=== PATIENT | female | born 1930 | race Caucasian/White ===

== ENCOUNTER 2018-02-16 00:07 | Inpatient (IN) ==
[2018-02-16] MEDS ORDERED: DILTIAZEM 25 MG/5 ML VIAL IV ONE (00:22)
[2018-02-16] MEDS ORDERED: DILTIAZEM 125 MG in DEXTROSE 5% IN WATER 100 ML IV SCH (00:30)
[2018-02-16] MEDS ORDERED: ACETAMINOPHEN 325 MG TABLET PO ONE (00:56)
[2018-02-16 01:19] LABS: Basophils # (Auto) 0 K/mcL (0.0-0.3); Basophils % (Auto) 0.1 % (0.0-2.0); Eosinophils # (Auto) 0.1 K/mcL (0.0-0.7); Eosinophils % (Auto) 1.1 % (0.0-7.0); Granulocytes % (Auto) 79.8 % (38.0-78.0); Lymphocytes # (Auto) 0.9 K/mcL (1.5-4.8); Lymphocytes % (Auto) 8.7 % (15.5-49.0); Mean Cell Volume 88.4 fL (80.0-100.0); Mean Corpuscular HGB Conc 33.2 g/dL (31.0-36.0); Mean Corpuscular Hemoglobin 29.4 pg (26.0-34.0); Monocytes # (Auto) 1.1 K/mcL (0.1-0.9); Monocytes % (Auto) 10.3 % (1.0-12.0); Platelet Count 170 K/mcL (140-440); RBC 4.38 M/mcL (4.00-5.20); Red Cell Distribution Width 14.7 % (11.5-14.5)
[2018-02-16] MEDS ORDERED: 0.9 % SODIUM CHLORIDE 2,000 ML IV ONE (01:27)
[2018-02-16 01:39] LABS: ALT/SGPT 32 U/l (0-40); Albumin 3.5 gm/dL (3.2-5.2); Albumin/Globulin Ratio 1.2 (1.0-2.3); Alkaline Phosphatase 75 U/L (39-117); Blood Urea Nitrogen 24 mg/dl (8-23)
[2018-02-16 02:00] LABS: Appearance,Urine CLEAR; Bacteria,Urine 0 /hpf (0); Bilirubin,Urine NEG (NEG); Color,Urine YELLOW; Glucose,Urine (UA) NEGATIVE (NEG); Leukocyte Esterase,Urine NEG /uL (NEG); Mucus,Urine MOD /hpf (0); Protein,Urine 30 mg/dL (NEG); Specific Gravity,Urine 1.024 (1.000-1.035); Urine Blood 0.03 mg/dL (<0.03); Urine Hyaline Cast 1 /lpf (0-2); Urine RBC 10 /hpf (0-1); Urine Squamous Epithelial Cell 0 /hpf (0-4); Urine WBC 1 /hpf (0-4); Urobilinogen,Urine NEG (NEG)
--- NOTE | 2018-02-16 06:45 | XRay Report ---
CLINICAL INFORMATION: afib, fever COMPARISON: None. FINDINGS: The heart is moderately enlarged. Mediastinum and pulmonary vasculature are unremarkable. Moderate stranding airspace disease in the left midlung is more likely fibrosis rather than a developing infiltrate. Nonunified displaced old fracture of the distal left clavicle noted. Both humeral heads are subluxed superiorly and impinge the acromium compatible with chronic rotator cuff tear/impingement IMPRESSION: Moderate strand-like airspace disease in the left midlung more likely fibrosis and infiltrate. If aspiration or pneumonia is suspected clinically, suggest two view upright chest x-ray within 24 hours Interpreted and Authenticated by: Jerardo Pulliam 02/16/18
--- NOTE | 2018-02-16 06:46 | Emergency Department Note ---
General Adult HPI - General Chief complaint: Fever Stated complaint: fever Time Seen by Provider: 02/16/18 00:24 Mode of arrival: wheelchair - History of Present Illness HPI Narrative: This patient received a flu shot and pneumonia shot on Friday and has been coughing since and has had a fever. She also was in atrial fibrillation RVR. No chest pain. - Related Data Home Medications Medication Instructions Recorded Confirmed Aspirin [Lo-Dose Aspirin EC] 81 mg PO DAILY 02/16/18 02/16/18 Cyanocobalamin (Vitamin B-12) 2,500 mcg PO DAILY 02/16/18 02/16/18 [Vitamin B12] Divalproex Sodium [Depakote] 250 mg PO DAILY 02/16/18 02/16/18 Losartan [Cozaar] 50 mg PO DAILY 02/16/18 02/16/18 Multivitamin [One Daily] 1 each PO DAILY 02/16/18 02/16/18 Allergies Allergy/AdvReac Type Severity Reaction Status Date / Time No Known Drug Allergies Allergy Verified 02/16/18 02:13 Review of Systems All systems ED: reviewed and negative except as stated. Past Medical History - Past Medical History Medical history: Reports: dementia, hypertension Surgical history ED: Reports: orthopedic, other (Clavicle fracture) - Social History smoking status: Never smoker Physical Exam Limitations: no limitations General appearance: alert Head: atraumatic Eye: Present: normal appearance ENT: normal exam Neck: Present: normal inspection Chest: Present: normal inspection Respiratory: Present: other (Scattered rhonchi) Cardiovascular: Present: regular rate, normal rhythm, normal heart sounds Abdominal: Present: soft. Absent: distention, tenderness Neurological: Present: alert Psychiatric: Present: normal affect Skin: Present: warm, dry Course Vital Signs Temperature 103 F H 02/16/18 00:09 Pulse Rate 144 H 02/16/18 00:09 Respiratory Rate 35 H 02/16/18 00:09 Blood Pressure 132/95 02/16/18 00:09 Pulse Oximetry (%) 88 L 02/16/18 00:09 Temperature 99.7 F H 02/16/18 04:11 Pulse Rate 70 02/16/18 07:16 Respiratory Rate 31 H 02/16/18 07:16 Blood Pressure 132/90 02/16/18 07:16 Pulse Oximetry (%) 100 02/16/18 07:16 Medical Decision Making - MDM Narrative Medical decision making narrative: Chest x-ray may show a linear infiltrate in the left midlung zone. Troponin was 0.05 and 0.04 on repeat. Heart rate was controlled with diltiazem. Lab work is reassuring for not being septic. We did blood cultures and gave doxycycline 100 mg IV. She will be admitted to the hospital. - Lab Data Lab results reviewed: Yes I reviewed the patient's lab results. Result diagrams: 02/16/18 00:37 02/16/18 00:37 Lab Results 02/16/18 02/16/18 02/16/18 Range/Units 00:37 00:37 00:37 WBC 10.3 (4.5-11.0) K/mcL RBC 4.38 (4.00-5.20) M/mcL Hgb 12.9 (12.0-15.0) g/dL Hct 38.7 (36.0-48.0) % MCV 88.4 (80.0-100.0) fL MCH 29.4 (26.0-34.0) pg MCHC 33.2 (31.0-36.0) g/dL RDW 14.7 H (11.5-14.5) % Plt Count 170 (140-440) K/mcL MPV 12.4 H (7.4-10.4) fL Gran % 79.8 H (38.0-78.0) % Lymph % (Auto) 8.7 L (15.5-49.0) % Coal % (Auto) 10.3 (1.0-12.0) % Eos % (Auto) 1.1 (0.0-7.0) % Baso % (Auto) 0.1 (0.0-2.0) % Gran # 8.2 H (1.8-8.0) K/mcL Lymph # (Auto) 0.9 L (1.5-4.8) K/mcL Coal # (Auto) 1.1 H (0.1-0.9) K/mcL Eos # (Auto) 0.1 (0.0-0.7) K/mcL Baso # (Auto) 0 (0.0-0.3) K/mcL VBG Lactic Acid 1.3 (0.5-2.2) mmol/L Sodium 137 (133-145) mmol/L Potassium 4.0 (3.3-5.1) mmol/L Chloride 103 (96-108) mmol/L Carbon Dioxide 23 (22-30) mmol/L Anion Gap 11.0 (8-16) BUN 24 H (8-23) mg/dl Creatinine 1.0 (0.6-1.1) mg/dl GFR Calculation 51 Glucose 156 H (70-105) mg/dL Calcium 8.3 L (8.6-10.4) mg/dl Total Bilirubin 0.9 (0.0-1.0) mg/dL AST 29 (0-37) U/l ALT 32 (0-40) U/l Alkaline Phosphatase 75 (39-117) U/L Troponin T (0-0.03) ng/ml Total Protein 6.4 (5.9-8.4) gm/dL Albumin 3.5 (3.2-5.2) gm/dL Globulin 2.9 (2.2-3.7) gm/dL Albumin/Globulin Ratio 1.2 (1.0-2.3) Urine Color Urine Appearance Urine pH (5.0-9.0) Ur Specific [place] (1.000-1.035) Urine Protein (NEG) mg/dL Urine Glucose (UA) (NEG) mg/dL Urine Ketones (NEG) mg/dL Urine Occult Blood (<0.03) mg/dL Urine Nitrate (NEG) Urine Bilirubin (NEG) mg/dL Urine Urobilinogen (NEG) mg/dL Ur Leukocyte Esterase (NEG) /uL Urine RBC (0-1) /hpf Urine WBC (0-4) /hpf Ur Squamous Epith Cells (0-4) /hpf Urine Bacteria (0) /hpf Hyaline Casts (0-2) /lpf Urine Mucus (0) /hpf Ur Culture Indicated? 02/16/18 02/16/18 02/16/18 Range/Units 00:37 01:03 05:38 WBC (4.5-11.0) K/mcL RBC (4.00-5.20) M/mcL Hgb (12.0-15.0) g/dL Hct (36.0-48.0) % MCV (80.0-100.0) fL MCH (26.0-34.0) pg MCHC (31.0-36.0) g/dL RDW (11.5-14.5) % Plt Count (140-440) K/mcL MPV (7.4-10.4) fL Gran % (38.0-78.0) % Lymph % (Auto) (15.5-49.0) % Coal % (Auto) (1.0-12.0) % Eos % (Auto) (0.0-7.0) % Baso % (Auto) (0.0-2.0) % Gran # (1.8-8.0) K/mcL Lymph # (Auto) (1.5-4.8) K/mcL Coal # (Auto) (0.1-0.9) K/mcL Eos # (Auto) (0.0-0.7) K/mcL Baso # (Auto) (0.0-0.3) K/mcL VBG Lactic Acid (0.5-2.2) mmol/L Sodium (133-145) mmol/L Potassium (3.3-5.1) mmol/L Chloride (96-108) mmol/L Carbon Dioxide (22-30) mmol/L Anion Gap (8-16) BUN (8-23) mg/dl Creatinine (0.6-1.1) mg/dl GFR Calculation Glucose (70-105) mg/dL Calcium (8.6-10.4) mg/dl Total Bilirubin (0.0-1.0) mg/dL AST (0-37) U/l ALT (0-40) U/l Alkaline Phosphatase (39-117) U/L Troponin T 0.05 H* 0.04 H* (0-0.03) ng/ml Total Protein (5.9-8.4) gm/dL Albumin (3.2-5.2) gm/dL Globulin (2.2-3.7) gm/dL Albumin/Globulin Ratio (1.0-2.3) Urine Color Yellow Urine Appearance Clear Urine pH 5.0 (5.0-9.0) Ur Specific [place] 1.024 (1.000-1.035) Urine Protein 30 A (NEG) mg/dL Urine Glucose (UA) Negative (NEG) mg/dL Urine Ketones Neg (NEG) mg/dL Urine Occult Blood 0.03 A (<0.03) mg/dL Urine Nitrate Neg (NEG) Urine Bilirubin Neg (NEG) mg/dL Urine Urobilinogen Neg (NEG) mg/dL Ur Leukocyte Esterase Neg (NEG) /uL Urine RBC 10 H (0-1) /hpf Urine WBC 1 (0-4) /hpf Ur Squamous Epith Cells 0 (0-4) /hpf Urine Bacteria 0 (0) /hpf Hyaline Casts 1 (0-2) /lpf Urine Mucus Mod (0) /hpf Ur Culture Indicated? No - Radiology Data Radiology results reviewed: Yes I reviewed the patient's radiology results. Disposition Pt seen by HYDROPULPER OPERATOR/PA only: No Clinical Impression: Atrial fibrillation with rapid ventricular response Disposition: Xfer As Inpt ([facility]) Condition: Fair Time of Disposition: 07:35
[2018-02-16] MEDS ORDERED: DOXYCYCLINE 100 MG in DEXTROSE 5% IN WATER 100 ML IV ONE (06:47)
[2018-02-16] MEDS ORDERED: ONDANSETRON 4 MG/2 ML VIAL IV PRN (10:40)
[2018-02-16] MEDS: HEPARIN 5,000 UNIT/ML VIAL SQ SCH ×2 (11:38→20:06)
[2018-02-16] MEDS: 0.9 % SODIUM CHLORIDE 250 ML IV SCH (11:39)
[2018-02-16 11:44] LABS: Basophils # (Auto) 0 K/mcL (0.0-0.3); Basophils % (Auto) 0.2 % (0.0-2.0); Eosinophils # (Auto) 0 K/mcL (0.0-0.7); Eosinophils % (Auto) 0.2 % (0.0-7.0); Granulocytes % (Auto) 76.3 % (38.0-78.0); Lymphocytes # (Auto) 1.1 K/mcL (1.5-4.8); Lymphocytes % (Auto) 11.1 % (15.5-49.0); Mean Cell Volume 89.6 fL (80.0-100.0); Mean Corpuscular HGB Conc 33.3 g/dL (31.0-36.0); Mean Corpuscular Hemoglobin 29.8 pg (26.0-34.0); Monocytes # (Auto) 1.2 K/mcL (0.1-0.9); Monocytes % (Auto) 12.2 % (1.0-12.0); Platelet Count 169 K/mcL (140-440); RBC 4.47 M/mcL (4.00-5.20); Red Cell Distribution Width 15.1 % (11.5-14.5)
[2018-02-16 12:07] LABS: Estimated Average Glucose(eAG) 114 mg/dL; Hemoglobin A1C 5.6 % HGB (4.0-6.0)
[2018-02-16 12:16] LABS: ALT/SGPT 103 U/l (0-40); Albumin 3.7 gm/dL (3.2-5.2); Albumin/Globulin Ratio 1.3 (1.0-2.3); Alkaline Phosphatase 118 U/L (39-117); Blood Urea Nitrogen 19 mg/dl (8-23)
[2018-02-16] MEDS ORDERED: DILTIAZEM 125 MG in DEXTROSE 5% IN WATER 100 ML IV PRN (12:30)
[2018-02-16] MEDS: DILTIAZEM 30 MG TABLET PO SCH ×2 (13:09→17:59)
[2018-02-16] MEDS: ACETAMINOPHEN 325 MG TABLET PO PRN (13:22)
[2018-02-16] MEDS: 0.9 % SODIUM CHLORIDE 10 ML SYRINGE IV SCH ×2 (14:23→20:06)
--- NOTE | 2018-02-16 18:43 | Internal Med History&Physical ---
Medical - H&P: [facility] Patient information: Note initiated : 02/16/18 at 6:43 pm Service Date, if different from initiated Date: [] Patient: Irma Francis 87 y/o F admitted on 02/16/18 for Fever. Chief Complaint: Fever, cough, found to be in atrial fibrillation with rapid ventricular response History of present illness: Ms. Francis is a 87 year old F with a history of hypertension, dementia who presents to the emergency department late on Friday/early on Friday. History is obtained speaking with the patient's son, as the patient has dementia and cannot provide much meaningful history. Patient started developing cough on Friday. On Friday she was seen in the clinic, she had was still coughing, only coughed once during her clinic visit however. She received a flu shot as well as a Pneumovax. She continued to have cough and chest symptoms to the rest of the week. On Friday evening she developed fever which prompted the visit to the emergency department. Also on Friday her cough and worsened. In the emergency department the patient had some whitish sputum. She is complaining of shortness of breath when directly asked. She denies any chest pain or tightness or squeezing. According to her son, yesterday she was complaining of some pain but could not localize. Patient denies any palpitations or feeling of racing heart or fluttering in her chest. She denies any nausea or vomiting. Her son is noted that her appetite is good. She's had no edema. Of note, her [id number], with whom she lives part of the week, was discharged from this facility on Friday afternoon admission for pneumococcal as well as mycoplasma pneumonia. In addition to cough or sputum the ED, she is found to be in atrial fibrillation with rapid ventricular response. She had fever to 103 in the emergency department. She was treated with acetaminophen, rate was controlled with diltiazem drip, she has now been admitted to the hospital for further treatment of her pulmonary symptoms, fever and A. fib with RVR. All systems: reviewed and no additional remarkable complaints except as stated Medical - H&P: PMH Medical history: Hypertension (Chronic) Dementia (Chronic) Clavicle fracture (Acute) Surgical history: History of total right knee replacement (Acute) History of total left knee replacement (Acute) Failed total knee, left (Acute) Pertinent family history: Neither patient nor son can recall any specific family history in regard to the patient's parents or siblings Social history: Patient lives in her home part-time with a caregiver part-time she lives with her son and [id number]. She does not smoke cigarettes. She does not drink alcohol. Medical - H&P: Meds Home Medications Medication Instructions Recorded Confirmed Type Aspirin [Lo-Dose Aspirin EC] 81 mg PO DAILY 02/16/18 02/16/18 History Cyanocobalamin (Vitamin B-12) 2,500 mcg PO DAILY 02/16/18 02/16/18 History [Vitamin B12] Divalproex Sodium [Depakote] 250 mg PO DAILY 02/16/18 02/16/18 History Losartan [Cozaar] 50 mg PO DAILY 02/16/18 02/16/18 History Melatonin 5 mg PO HS 02/16/18 02/16/18 History Multivitamin [One Daily] 1 each PO DAILY 02/16/18 02/16/18 History Allergies Allergy/AdvReac Type Severity Reaction Status Date / Time No Known Drug Allergies Allergy Verified 02/16/18 02:13 Medical - H&P: Exam - Constitutional Vitals: Temp Pulse Resp BP Pulse Ox 98 F 112 H 28 H 141/105 97 02/16/18 16:00 02/16/18 10:16 02/16/18 16:00 02/16/18 16:00 02/16/18 16:00 Exam: GENERAL: Alert, oriented, in no acute distress. Cooperative, appears stated age. HEENT: Atraumatic. PERRL at 3 mm, conjunctiva clear, no scleral icterus. Hearing grossly intact. Oropharynx with moist mucous membranes, no lip or gum lesions, no pharyngeal erythema or exudate. Tongue midline, palate rises symmetrically. NECK: Supple without meningismus, no thyromegaly RESPIRATORY: Breath sounds with scattered rhonchi bilaterally without wheezes. Respiratory effort is unlabored. CARDIOVASCULAR: Irregularly irregular rhythm, rate controlled at time of my exam. No murmur gallop or rub. No peripheral edema. Carotid pulses 2+ without bruit. GI: Abdomen soft, nontender, no guarding or rebound. Bowel sounds are present. No hepatosplenomegaly. MUSCULOSKELETAL: No joint erythema or swelling, normal range of motion in all extremities. SKIN: Intact, warm, dry. Skin turgor decreased. NEUROLOGIC: Cranial nerves II through XII grossly intact. Muscle mass normal for age. Sensation intact to light touch bilaterally. Deep tendon reflexes 1+ at the biceps and patella. PSYCHIATRIC: Alert, oriented to self; decreased short-term memory and recall. Poor insight. Medical - H&P: Reslt - Labs CBC & Chem 7: 02/16/18 11:02 02/16/18 11:02 Labs: Short CBC 02/16/18 02/16/18 Range/Units 00:37 11:02 WBC 10.3 9.9 (4.5-11.0) K/mcL Hgb 12.9 13.3 (12.0-15.0) g/dL Hct 38.7 40.1 (36.0-48.0) % Plt Count 170 169 (140-440) K/mcL BMP 02/16/18 02/16/18 00:37 11:02 Sodium 137 140 Potassium 4.0 4.0 Chloride 103 105 Carbon Dioxide 23 23 BUN 24 H 19 Creatinine 1.0 1.0 Glucose 156 H 135 H Calcium 8.3 L 8.6 Cardiac Enzymes 02/16/18 02/16/18 Range/Units 00:37 05:38 Troponin T 0.05 H* 0.04 H* (0-0.03) ng/ml Liver Function 02/16/18 02/16/18 Range/Units 00:37 11:02 Total Bilirubin 0.9 2.0 H (0.0-1.0) mg/dL AST 29 108 H (0-37) U/l ALT 32 103 H (0-40) U/l Alkaline Phosphatase 75 118 H (39-117) U/L Albumin 3.5 3.7 (3.2-5.2) gm/dL Urine 02/16/18 Range/Units 01:03 Urine Color Yellow Urine Appearance Clear Urine pH 5.0 (5.0-9.0) Ur Specific [place] 1.024 (1.000-1.035) Urine Protein 30 A (NEG) mg/dL Urine Glucose (UA) Negative (NEG) mg/dL - EKG Data -: EKG Reviewed by Myself (atrial fibrillation with lateral T-wave flattening) - Imaging and Cardiology Chest x-ray Status: image reviewed by me Additional comments: IMPRESSION: Moderate strand-like airspace disease in the left midlung more likely fibrosis and infiltrate. If aspiration or pneumonia is suspected clinically, suggest two view upright chest x-ray within 24 hours Medical - H&P: A/P (1) Atrial fibrillation with rapid ventricular response Current visit: Yes Status: Acute (2) Bronchitis Current visit: Yes Status: Acute (3) Hypertension Current visit: Yes Status: Acute (4) Dementia Current visit: Yes Status: Acute - Narrative A/P Narrative: 87-year-old female presents with fever, cough, found to be in A. fib with rapid ventricular response. Atrial fibrillation rapid ventricular response. Likely triggered by fever and pulmonary illness in the setting of underlying hypertension. No known history of atrial fibrillation. Rate controlled with diltiazem infusion at time of admission to telemetry/ICU. Plan: Inpatient admission Diltiazem drip Begin diltiazem by mouth, wean drip to off Check TSH Check echocardiogram Begin discussion of stroke prophylaxis with son, will continue discussion further Cough, fever. She does have some changes on radiograph the left lung, though they appear to be more chronic and fibrotic. Has received doxycycline in the ED. To cover bronchitis and possible pneumonia. Concern this could represent mycoplasma pneumoniae infection as she has had household contact with mycoplasma. Plan: Acetaminophen for fever, send mycoplasma IgM, continue doxycycline, supportive care, recheck chest x-ray in morning Hypertension. On losartan at home. Plan: Continue. Dementia. Patient is pleasant, but at risk for delirium when hospitalized. Plan: Continue Depakote, supportive care, frequent reorientation, attemp to maintain night and day cycles. DVT prophylaxis: Heparin CODE STATUS: DO NOT RESUSCITATE Medical - H&P: Qual - VTE Deep Vein Thrombosis/Pulmonary Embolism Present on Admission: No
[2018-02-16] MEDS: DOXYCYCLINE HYCLATE 100 MG TABLET.ORL PO SCH (20:06)
[2018-02-16] MEDS ORDERED: QUEtiapine 25 MG TABLET PO ONE ×2 (21:00→23:00)
[2018-02-16] MEDS ORDERED: traZODone HCL 50 MG TABLET PO PRN (23:06)
[2018-02-16] MEDS ORDERED: traZODone HCL 50 MG TABLET ONE (23:30)
[2018-02-17] MEDS ORDERED: DILTIAZEM 25 MG/5 ML VIAL IV ONE (00:41)
[2018-02-17] MEDS: DILTIAZEM 30 MG TABLET PO SCH ×4 (01:06→17:32)
[2018-02-17] MEDS: MELATONIN 3 MG TABLET PO SCH ×2 (01:11→21:46)
[2018-02-17] MEDS: 0.9 % SODIUM CHLORIDE 250 ML IV SCH ×2 (01:11→12:52)
[2018-02-17] MEDS ORDERED: METOPROLOL TARTRATE 5 MG/5 ML VIAL IV PRN (01:20)
[2018-02-17] MEDS ORDERED: DILTIAZEM 25 MG/5 ML VIAL IV PRN (01:22)
[2018-02-17] MEDS: 0.9 % SODIUM CHLORIDE 10 ML SYRINGE IV SCH ×3 (05:55→21:14)
[2018-02-17] MEDS ORDERED: DILTIAZEM 25 MG/5 ML VIAL IV SCH (06:00)
[2018-02-17 06:41] LABS: Basophils # (Auto) 0 K/mcL (0.0-0.3); Basophils % (Auto) 0.1 % (0.0-2.0); Eosinophils # (Auto) 0 K/mcL (0.0-0.7); Eosinophils % (Auto) 0.2 % (0.0-7.0); Granulocytes % (Auto) 74.1 % (38.0-78.0); Lymphocytes # (Auto) 1.1 K/mcL (1.5-4.8); Lymphocytes % (Auto) 12.8 % (15.5-49.0); Mean Cell Volume 88.6 fL (80.0-100.0); Mean Corpuscular HGB Conc 33.4 g/dL (31.0-36.0); Mean Corpuscular Hemoglobin 29.6 pg (26.0-34.0); Monocytes # (Auto) 1.1 K/mcL (0.1-0.9); Monocytes % (Auto) 12.8 % (1.0-12.0); Platelet Count 149 K/mcL (140-440); RBC 4.08 M/mcL (4.00-5.20); Red Cell Distribution Width 14.7 % (11.5-14.5)
[2018-02-17 07:07] LABS: Blood Urea Nitrogen 21 mg/dl (8-23)
--- NOTE | 2018-02-17 07:51 | XRay Report ---
CLINICAL INFORMATION: Fever, cough COMPARISON: 02/16/2018 FINDINGS: Moderate cardiomegaly is unchanged. Tortuous thoracic aorta is again noted. The mediastinum and pulmonary vessels otherwise normal. There is mild interstitial disease diffusely throughout both lungs of uncertain etiology. Strand-like area of airspace disease in the left midlung has improved. Small bilateral pleural effusions have developed IMPRESSION: Mild interstitial disease throughout both lungs with small bilateral pleural effusions. There is no associated vascular congestion to support CHF. Consider infectious or inflammatory etiologies. Moderate cardiomegaly - stable Interpreted and Authenticated by: Jerardo Pulliam 02/17/18
[2018-02-17] MEDS ORDERED: ASPIRIN 81 MG TAB.CHEW PO SCH (09:00)
[2018-02-17] MEDS ORDERED: LOSARTAN 50 MG TABLET PO SCH (09:00)
[2018-02-17] MEDS: MULTIVIT,THER IRON,CA,FA & MIN 1 TABLET PO SCH (10:19)
[2018-02-17] MEDS: HEPARIN 5,000 UNIT/ML VIAL SQ SCH (10:19)
[2018-02-17] MEDS: DOXYCYCLINE HYCLATE 100 MG TABLET.ORL PO SCH ×2 (10:20→21:13)
[2018-02-17] MEDS: ACETAMINOPHEN 325 MG TABLET PO PRN (10:21)
[2018-02-17] MEDS: CYANOCOBALAMIN (VITAMIN B-12) 500 MCG TABLET PO SCH (10:22)
[2018-02-17] MEDS: DIVALPROEX SODIUM 250 MG TAB.ER.24H PO SCH (10:34)
[2018-02-17] MEDS: RIVAROXABAN 15 MG TABLET PO SCH (17:48)
--- NOTE | 2018-02-17 20:09 | Internal Med Progress Note ---
Medical - PN: Subj Patient information: Note initiated : 02/17/18 at 8:04 pm Service Date, if different from initiated Date: [] Patient: Irma Francis 87 y/o F admitted on 02/16/18 for Fever/AFib w/RVR. Chief Complaint: f/u A fib. Interval history: 02/16 Ms. Francis is a 87 year old F with a history of hypertension, dementia who presents to the emergency department late on Friday/early on Friday. History is obtained speaking with the patient's son, as the patient has dementia and cannot provide much meaningful history. Patient started developing cough on Friday. On Friday she was seen in the clinic, she had was still coughing, only coughed once during her clinic visit however. She received a flu shot as well as a Pneumovax. She continued to have cough and chest symptoms to the rest of the week. On Friday evening she developed fever which prompted the visit to the emergency department. Also on Friday her cough and worsened. In the emergency department the patient had some whitish sputum. She is complaining of shortness of breath when directly asked. She denies any chest pain or tightness or squeezing. According to her son, yesterday she was complaining of some pain but could not localize. Patient denies any palpitations or feeling of racing heart or fluttering in her chest. She denies any nausea or vomiting. Her son is noted that her appetite is good. She's had no edema. Of note, her [id number], with whom she lives part of the week, was discharged from this facility on Friday afternoon admission for pneumococcal as well as mycoplasma pneumonia. In addition to cough or sputum the ED, she is found to be in atrial fibrillation with rapid ventricular response. She had fever to 103 in the emergency department. She was treated with acetaminophen, rate was controlled with diltiazem drip, she has now been admitted to the hospital for further treatment of her pulmonary symptoms, fever and A. fib with RVR. 02/17 Most of the night last night, received 225 mg doses of Seroquel, though did not sleep till day. During the day, attempted to keep her awake to try to reorient to day and night cycles. However at home she is up a lot during the night wandering in the house. Mycoplasma IgM is negative, however parainfluenza 4 virus is positive on respiratory virus panel. Likely explains her cough and fever at presentation. Echocardiogram obtained, called by Dr. Fuentes with preliminary report, patient has severe aortic stenosis with pleural effusions and small pericardial effusions. Discussed this with her 2 sons, given the extent of her underlying and advanced dementia, wish to pursue expectant management with palliative care eventually. She has had a fairly sharp decline in her functional status over the last several months, I clearly related to the aortic stenosis. - Constitutional Vitals: Vital Signs Temp Pulse Resp BP Pulse Ox 98.5 F 119 H 17 104/64 96 02/17/18 15:51 02/17/18 08:00 02/17/18 15:51 02/17/18 15:51 02/17/18 15:51 Period Temp Pulse Resp BP Sys/Benavidez Pulse Ox Last 24 Hr 97.2 F-98.5 F 119 16-24 80-146/55-103 85-97 Intake and Output 02/17/18 02/17/18 02/17/18 05:59 13:59 21:59 Intake Total 150 / 150 Output Total 125 / 125 480 / 480 Balance -125 / -125 -330 / -330 Weight 157 lb 6.4 oz Patient Weight 02/18/18 05:59 Weight 157 lb 6.4 oz Intake & Output: Intake & Output 02/17/18 02/17/18 02/17/18 05:59 13:59 21:59 Intake Total 150 / 150 Output Total 125 / 125 480 / 480 Balance -125 / -125 -330 / -330 Weight 157 lb 6.4 oz Intake: Oral 150 / 150 Output: Void Amount 125 / 125 480 / 480 Other: Meal Breakfast Lunch Percent of Meal Consumed 75% 50% Feeding Ability Needs Supervision Assist with Tray Set Up Urine Appearance Clear Urine Color Dark Yellow Dark Yellow Urine Odor Strong Strong Exam: General: Drowsy, sitting up in chair Chest: Few basilar crackles, otherwise clear Cardiovascular: Irregularly irregular, rate controlled Abdomen: Soft, nontender Neuro: Alert, oriented to self only, generally weak Medical - PN: Obj Da - Labs CBC & Chem 7: 02/17/18 03:35 02/17/18 03:35 Labs: Abnormal Lab Results 02/17/18 02/17/18 02/16/18 03:35 03:35 11:02 RDW 14.7 H MPV 13.0 H Gran % Lymph % (Auto) 12.8 L [place] % (Auto) 12.8 H Gran # Lymph # (Auto) 1.1 L [place] # (Auto) 1.1 H BUN Glucose 122 H 135 H Calcium Total Bilirubin 2.0 H AST 108 H ALT 103 H Alkaline Phosphatase 118 H Troponin T Urine Protein Urine Occult Blood Urine RBC 02/16/18 02/16/18 02/16/18 11:02 05:38 01:03 RDW 15.1 H MPV 12.6 H Gran % Lymph % (Auto) 11.1 L [place] % (Auto) 12.2 H Gran # Lymph # (Auto) 1.1 L [place] # (Auto) 1.2 H BUN Glucose Calcium Total Bilirubin AST ALT Alkaline Phosphatase Troponin T 0.04 H* Urine Protein 30 A Urine Occult Blood 0.03 A Urine RBC 10 H 02/16/18 02/16/18 02/16/18 00:37 00:37 00:37 RDW 14.7 H MPV 12.4 H Gran % 79.8 H Lymph % (Auto) 8.7 L [place] % (Auto) Gran # 8.2 H Lymph # (Auto) 0.9 L [place] # (Auto) 1.1 H BUN 24 H Glucose 156 H Calcium 8.3 L Total Bilirubin AST ALT Alkaline Phosphatase Troponin T 0.05 H* Urine Protein Urine Occult Blood Urine RBC Meds: Medications Acetaminophen (Tylenol) 650 mg PO Q4HP PRN PRN Reason: PAIN/FEVER > 101 Last Admin: 02/17/18 10:21 Dose: 650 mg Cyanocobalamin (Vitamin B-12) 2,500 mcg PO DAILY [facility] Last Admin: 02/17/18 10:22 Dose: 2,500 mcg Diltiazem HCl (Cardizem) 60 mg PO Q6 [facility] Last Admin: 02/17/18 17:32 Dose: 60 mg Diltiazem HCl (Cardizem) 10 mg IV Q6HP PRN PRN Reason: Heart Rate- High Divalproex Sodium (Depakote Er) 250 mg PO DAILY [facility] Last Admin: 02/17/18 10:34 Dose: 250 mg Doxycycline Hyclate (Doxycycline Hyclate) 100 mg PO BID [facility] Last Admin: 02/17/18 10:20 Dose: 100 mg Diltiazem HCl 125 mg/ Dextrose 125 mls @ 5 mls/hr IV Q12HP PRN; Protocol PRN Reason: Tachyarrhythmias Sodium Chloride (Sodium Chloride 0.9%) 250 mls @ 20 mls/hr IV .[id number] [facility] Last Admin: 02/17/18 12:52 Dose: Not Given Iron Carb/Multivit/Gluing Machine Operator Electronic/Folic Acid (Multivitamin W/Minerals) 1 tab PO DAILY [facility] Last Admin: 02/17/18 10:19 Dose: 1 tab Melatonin (Melatonin 3mg Tablet) 3 mg PO HS [facility] Last Admin: 02/17/18 01:11 Dose: Not Given Metoprolol Tartrate (Lopressor) 5 mg IV Q6HP PRN PRN Reason: Heart Rate- High Ondansetron HCl (Zofran) 4 mg IV Q4HP PRN PRN Reason: Nausea And Vomiting Quetiapine Fumarate (Seroquel) 50 mg PO HS [facility] Rivaroxaban (Xarelto) 15 mg PO BIDCC [facility] Last Admin: 02/17/18 17:48 Dose: 15 mg Sodium Chloride (Saline Flush) 10 ml IV Q8 [facility] Last Admin: 02/17/18 14:43 Dose: 10 ml Trazodone HCl (Desyrel) 50 mg PO HSP PRN PRN Reason: Insomnia - Imaging and cardiology Chest x-ray Status: image reviewed by me Additional comments: IMPRESSION: Mild interstitial disease throughout both lungs with small bilateral pleural effusions. There is no associated vascular congestion to support CHF. Consider infectious or inflammatory etiologies. Moderate cardiomegaly - stable Medical - PN: A/P - Time Spent With Patient Total time spent is greater than 50% in coordination of care (as documented) at patient's floor/unit and/or counseling patient: Greater than 35 minutes (1) Atrial fibrillation with rapid ventricular response Status: Acute Current Visit: Yes (2) Bronchitis Status: Acute Current Visit: Yes (3) Hypertension Status: Acute Current Visit: Yes (4) Dementia Status: Acute Current Visit: Yes - Narrative A/P Narrative: 87-year-old female presents with fever, cough, found to be in A. fib with rapid ventricular response. Atrial fibrillation rapid ventricular response. Likely triggered by fever and parainfluenza 4 viral illness. Off of diltiazem infusion, on 60 mg of diltiazem orally every 6 hours with fairly good control. Plan: Continue by mouth diltiazem, will use when necessary IV diltiazem and metoprolol for episodes of RVR. Begin Xarelto for stroke prophylaxis, after discussion of risk and benefits with her sons. Severe aortic stenosis. Long discussion with her 2 sons at bedside, she is not a surgical candidate given her performance status and advanced dementia. Also unlikely to be a good candidate for TAVR. Given her declining status over the last several months, they wished to pursue expectant management, focusing on keeping her comfort and involving hospice when needed. Plan: Monitor Cough, fever. 2 view chest x-ray, shows improvement of left lung streaky changes. RVP is positive for parainfluenza 4 virus, likely explaining her cough and fever at presentation. Mycoplasma IgM is negative. Plan: Acetaminophen for fever, stop doxycycline as viral illness diagnosed; supportive care Hypertension. On losartan at home. Plan: Stop to allow for adequate hemodynamics use diltiazem for rate control. Dementia. Patient is pleasant, but at risk for delirium when hospitalized. Had significant owning yesterday. Plan: Continue Depakote, continue bedtime Seroquel, frequent reorientation, attempt to maintain night and day cycles. Medical - PN: Qual - VTE Deep Vein Thrombosis/Pulmonary Embolism Present on Admission: No
[2018-02-17] MEDS ORDERED: QUEtiapine 25 MG TABLET PO PRN (20:38)
[2018-02-17] MEDS ORDERED: QUEtiapine 25 MG TABLET PO SCH ×2 (21:00)
[2018-02-17] MEDS: guaiFENesin/CODEINE 10 ML UDC PO PRN (21:14)
[2018-02-17] MEDS ORDERED: QUEtiapine 25 MG TABLET PO ONE (23:06)
[2018-02-18] MEDS: DILTIAZEM 30 MG TABLET PO SCH ×4 (00:22→17:05)
[2018-02-18] MEDS: 0.9 % SODIUM CHLORIDE 250 ML IV SCH ×2 (00:22→15:32)
[2018-02-18] MEDS: 0.9 % SODIUM CHLORIDE 10 ML SYRINGE IV SCH ×3 (05:49→20:36)
[2018-02-18 06:56] LABS: Blood Urea Nitrogen 21 mg/dl (8-23)
[2018-02-18] MEDS: ACETAMINOPHEN 325 MG TABLET PO PRN (08:04)
[2018-02-18] MEDS: DIVALPROEX SODIUM 250 MG TAB.ER.24H PO SCH (08:05)
[2018-02-18] MEDS: MULTIVIT,THER IRON,CA,FA & MIN 1 TABLET PO SCH (08:06)
[2018-02-18] MEDS: RIVAROXABAN 15 MG TABLET PO SCH ×2 (08:06→17:06)
[2018-02-18] MEDS: CYANOCOBALAMIN (VITAMIN B-12) 500 MCG TABLET PO SCH (08:08)
[2018-02-18] MEDS: DOXYCYCLINE HYCLATE 100 MG TABLET.ORL PO SCH (09:10)
--- NOTE | 2018-02-18 10:26 | Internal Med Progress Note ---
Medical - PN: Subj Patient information: Note initiated : 02/18/18 at 10:19 am Service Date, if different from initiated Date: [] Patient: Irma Francis 87 y/o F admitted on 02/16/18 for Fever/AFib w/RVR. Chief Complaint: f/u febrile illness/parainfluenza Interval history: 02/16 Ms. Francis is a 87 year old F with a history of hypertension, dementia who presents to the emergency department late on Friday/early on Friday. History is obtained speaking with the patient's son, as the patient has dementia and cannot provide much meaningful history. Patient started developing cough on Friday. On Friday she was seen in the clinic, she had was still coughing, only coughed once during her clinic visit however. She received a flu shot as well as a Pneumovax. She continued to have cough and chest symptoms to the rest of the week. On Friday evening she developed fever which prompted the visit to the emergency department. Also on Friday her cough and worsened. In the emergency department the patient had some whitish sputum. She is complaining of shortness of breath when directly asked. She denies any chest pain or tightness or squeezing. According to her son, yesterday she was complaining of some pain but could not localize. Patient denies any palpitations or feeling of racing heart or fluttering in her chest. She denies any nausea or vomiting. Her son is noted that her appetite is good. She's had no edema. Of note, her [id number], with whom she lives part of the week, was discharged from this facility on Friday afternoon admission for pneumococcal as well as mycoplasma pneumonia. In addition to cough or sputum the ED, she is found to be in atrial fibrillation with rapid ventricular response. She had fever to 103 in the emergency department. She was treated with acetaminophen, rate was controlled with diltiazem drip, she has now been admitted to the hospital for further treatment of her pulmonary symptoms, fever and A. fib with RVR. 02/17 Most of the night last night, received 225 mg doses of Seroquel, though did not sleep till day. During the day, attempted to keep her awake to try to reorient to day and night cycles. However at home she is up a lot during the night wandering in the house. Mycoplasma IgM is negative, however parainfluenza 4 virus is positive on respiratory virus panel. Likely explains her cough and fever at presentation. Echocardiogram obtained, called by Dr. Fuentes with preliminary report, patient has severe aortic stenosis with pleural effusions and small pericardial effusions. Discussed this with her 2 sons, given the extent of her underlying and advanced dementia, wish to pursue expectant management with palliative care eventually. She has had a fairly sharp decline in her functional status over the last several months, I clearly related to the aortic stenosis. 02/18 Most the day yesterday, slept all night long, somnolent this morning. However she had been awake most of the night in the ED prior to admission in early a.m. , as well as all the following evening. Discussion with the patient's sons and [id number] today. At this point we'll follow her expectantly, to see how she does in the next 24 hours. They are aware that the severe aortic stenosis likely lead to decline in her health, unclear with the rapidity will be. Discharged to hospice could be appropriate at this point, she does rally, may wish to go to [facility] as I[facility]. Eventually will need transition to hospice. Pertinent ROS: Drowsy, cannot give review of systems. - Constitutional Vitals: Vital Signs Temp Pulse Resp BP Pulse Ox 99.6 F H 65 19 132/79 93 02/18/18 08:09 02/17/18 20:00 02/18/18 08:09 02/18/18 08:09 02/18/18 08:09 Period Temp Pulse Resp BP Sys/Benavidez Pulse Ox Last 24 Hr 97.8 F-100.6 F 65-78 16-24 80-132/55-87 93-97 Intake and Output 02/17/18 02/18/18 02/18/18 21:59 05:59 13:59 Intake Total 390 / 390 250 / 250 Output Total 480 / 480 225 / 225 Balance -90 / -90 249 / 249 -225 / -225 Weight 157 lb 9.6 oz Intake & Output: Intake & Output 02/17/18 02/18/18 02/18/18 21:59 05:59 13:59 Intake Total 390 / 390 250 / 250 Output Total 480 / 480 225 / 225 Balance -90 / -90 249 / 249 -225 / -225 Weight 157 lb 9.6 oz Intake: Oral 390 / 390 250 / 250 Output: Void Amount 480 / 480 225 / 225 # of times incontinent of urine Other: Meal Dinner 1 container applesauce w/ her medications Percent of Meal Consumed 75% 100% Feeding Ability Needs Supervision Total Assistance Urine Appearance Clear Urine Color Bright Yellow Urine Odor Normal Exam: General: Sitting up in wheelchair at bedside, sleeping, does arouse. Have been able to have some breakfast. Chest: Rare scattered rhonchi, unlabored Cardiovascular: Irregular, trace edema Abdomen: Soft, no apparent tenderness Neuro: Somnolent, arouses, generally weak. Medical - PN: Obj Da - Labs CBC & Chem 7: 02/17/18 03:35 02/18/18 03:53 Labs: Abnormal Lab Results 02/18/18 02/17/18 02/17/18 03:53 03:35 03:35 RDW 14.7 H MPV 13.0 H Gran % Lymph % (Auto) 12.8 L [place] % (Auto) 12.8 H Gran # Lymph # (Auto) 1.1 L [place] # (Auto) 1.1 H BUN Glucose 122 H Calcium 8.5 L Total Bilirubin AST ALT Alkaline Phosphatase Troponin T NT-Pro-B Natriuret Pep 3104.0 H Urine Protein Urine Occult Blood Urine RBC 02/16/18 02/16/18 02/16/18 11:02 11:02 05:38 RDW 15.1 H MPV 12.6 H Gran % Lymph % (Auto) 11.1 L [place] % (Auto) 12.2 H Gran # Lymph # (Auto) 1.1 L [place] # (Auto) 1.2 H BUN Glucose 135 H Calcium Total Bilirubin 2.0 H AST 108 H ALT 103 H Alkaline Phosphatase 118 H Troponin T 0.04 H* NT-Pro-B Natriuret Pep Urine Protein Urine Occult Blood Urine RBC 02/16/18 02/16/18 02/16/18 01:03 00:37 00:37 RDW MPV Gran % Lymph % (Auto) [place] % (Auto) Gran # Lymph # (Auto) [place] # (Auto) BUN 24 H Glucose 156 H Calcium 8.3 L Total Bilirubin AST ALT Alkaline Phosphatase Troponin T 0.05 H* NT-Pro-B Natriuret Pep Urine Protein 30 A Urine Occult Blood 0.03 A Urine RBC 10 H 02/16/18 00:37 RDW 14.7 H MPV 12.4 H Gran % 79.8 H Lymph % (Auto) 8.7 L [place] % (Auto) Gran # 8.2 H Lymph # (Auto) 0.9 L [place] # (Auto) 1.1 H BUN Glucose Calcium Total Bilirubin AST ALT Alkaline Phosphatase Troponin T NT-Pro-B Natriuret Pep Urine Protein Urine Occult Blood Urine RBC Meds: Medications Acetaminophen (Tylenol) 650 mg PO Q4HP PRN PRN Reason: PAIN/FEVER > 101 Last Admin: 02/18/18 08:04 Dose: 650 mg Cyanocobalamin (Vitamin B-12) 2,500 mcg PO DAILY [facility] Last Admin: 02/18/18 08:08 Dose: 2,500 mcg Diltiazem HCl (Cardizem) 60 mg PO Q6 [facility] Last Admin: 02/18/18 05:49 Dose: 60 mg Diltiazem HCl (Cardizem) 10 mg IV Q6HP PRN PRN Reason: Heart Rate- High Divalproex Sodium (Depakote Er) 250 mg PO DAILY [facility] Last Admin: 02/18/18 08:05 Dose: 250 mg Guaifenesin/Codeine Phosphate (Robitussin Ac) 5 ml PO Q4HP PRN PRN Reason: Cough Last Admin: 02/17/18 21:14 Dose: 5 ml Diltiazem HCl 125 mg/ Dextrose 125 mls @ 5 mls/hr IV Q12HP PRN; Protocol PRN Reason: Tachyarrhythmias Sodium Chloride (Sodium Chloride 0.9%) 250 mls @ 20 mls/hr IV .[id number] [facility] Last Admin: 02/18/18 00:22 Dose: Not Given Iron Carb/Multivit/Gem/Folic Acid (Multivitamin W/Minerals) 1 tab PO DAILY [facility] Last Admin: 02/18/18 08:06 Dose: 1 tab Melatonin (Melatonin 3mg Tablet) 3 mg PO HS [facility] Last Admin: 02/17/18 21:46 Dose: 3 mg Metoprolol Tartrate (Lopressor) 5 mg IV Q6HP PRN PRN Reason: Heart Rate- High Ondansetron HCl (Zofran) 4 mg IV Q4HP PRN PRN Reason: Nausea And Vomiting Quetiapine Fumarate (Seroquel) 50 mg PO HSP PRN PRN Reason: Sleep Last Admin: 02/17/18 21:14 Dose: 50 mg Rivaroxaban (Xarelto) 15 mg PO BIDCC [facility] Last Admin: 02/18/18 08:06 Dose: 15 mg Sodium Chloride (Saline Flush) 10 ml IV Q8 [facility] Last Admin: 02/18/18 05:49 Dose: 10 ml Trazodone HCl (Desyrel) 50 mg PO HSP PRN PRN Reason: Insomnia - Impressions Tele: A fib, rate controlled. Medical - PN: A/P - Time Spent With Patient Total time spent is greater than 50% in coordination of care (as documented) at patient's floor/unit and/or counseling patient: Greater than 35 minutes (1) Atrial fibrillation with rapid ventricular response Status: Acute Current Visit: Yes (2) Bronchitis Status: Acute Current Visit: Yes (3) Hypertension Status: Acute Current Visit: Yes (4) Dementia Status: Acute Current Visit: Yes - Narrative A/P Narrative: 87-year-old female presents with fever, cough, found to be in A. fib with rapid ventricular response. Atrial fibrillation rapid ventricular response. Likely triggered by fever and parainfluenza 4 viral illness. Remains rate controlled on 60 mg of diltiazem orally every 6 hours. Plan: Continue PO diltiazem, will use when necessary IV diltiazem and metoprolol for episodes of RVR. Begin Xarelto for stroke prophylaxis, after discussion of risk and benefits with her sons. Severe aortic stenosis. Long discussion with her 2 sons at bedside on Friday evening, again on Friday morning. She is not a surgical candidate given her performance status and advanced dementia. Also unlikely to be a good candidate for TAVR. Given her declining status over the last several months, they wished to pursue expectant management, focusing on keeping her comfort and involving hospice when needed. Plan: Monitor expectantly. Currently quite somnolent. We'll follow in the next 24 hours to see if she improves. If rapid decline in functional cardiopulmonary status, we'll consider palliative care. Cough, fever. 2 view chest x-ray, shows improvement of left lung streaky changes. RVP is positive for parainfluenza 4 virus, likely explaining her cough and fever at presentation. Mycoplasma IgM is negative. Plan: Acetaminophen for fever, stop doxycycline as viral illness diagnosed; supportive care. As above, follow expectantly for the next 24 hours to see if there will be improvement or need to focus on palliation. Hypertension. On losartan at home. Plan: Stop to allow for adequate hemodynamics use diltiazem for rate control. Dementia. Patient is pleasant, but at risk for delirium when hospitalized. Had significant owning yesterday. Plan: Continue Depakote, continue bedtime Seroquel, frequent reorientation, attempt to maintain night and day cycles. Medical - PN: Qual - VTE Deep Vein Thrombosis/Pulmonary Embolism Present on Admission: No
[2018-02-18] MEDS: guaiFENesin/CODEINE 10 ML UDC PO PRN (18:24)
[2018-02-19] MEDS: MELATONIN 3 MG TABLET PO SCH ×2 (00:30→19:56)
[2018-02-19] MEDS: DILTIAZEM 30 MG TABLET PO SCH ×2 (00:37→05:34)
[2018-02-19] MEDS: 0.9 % SODIUM CHLORIDE 250 ML IV SCH (05:34)
[2018-02-19] MEDS: 0.9 % SODIUM CHLORIDE 10 ML SYRINGE IV SCH ×5 (05:34→22:28)
[2018-02-19 06:57] LABS: Basophils # (Auto) 0 K/mcL (0.0-0.3); Basophils % (Auto) 0.7 % (0.0-2.0); Eosinophils # (Auto) 0.3 K/mcL (0.0-0.7); Eosinophils % (Auto) 5.1 % (0.0-7.0); Granulocytes % (Auto) 60.4 % (38.0-78.0); Lymphocytes # (Auto) 1.5 K/mcL (1.5-4.8); Lymphocytes % (Auto) 23.9 % (15.5-49.0); Mean Cell Volume 89.2 fL (80.0-100.0); Mean Corpuscular HGB Conc 33.4 g/dL (31.0-36.0); Mean Corpuscular Hemoglobin 29.8 pg (26.0-34.0); Monocytes # (Auto) 0.6 K/mcL (0.1-0.9); Monocytes % (Auto) 9.9 % (1.0-12.0); Platelet Count 207 K/mcL (140-440); RBC 3.88 M/mcL (4.00-5.20); Red Cell Distribution Width 14.7 % (11.5-14.5)
[2018-02-19] MEDS: RIVAROXABAN 15 MG TABLET PO SCH ×2 (07:25→16:39)
[2018-02-19 07:38] LABS: ALT/SGPT 108 U/l (0-40); Albumin 2.5 gm/dL (3.2-5.2); Albumin/Globulin Ratio 0.8 (1.0-2.3); Alkaline Phosphatase 79 U/L (39-117); Bilirubin,Direct < 0.2 mg/dL (0.0-0.3); Blood Urea Nitrogen 19 mg/dl (8-23); Gamma Glutamyl Transpeptidase 31 U/L (5-36); Uric Acid 4.6 mg/dL (2.5-8.0)
[2018-02-19] MEDS: DIVALPROEX SODIUM 250 MG TAB.ER.24H PO SCH (08:31)
[2018-02-19] MEDS: CYANOCOBALAMIN (VITAMIN B-12) 500 MCG TABLET PO SCH (08:31)
[2018-02-19] MEDS: MULTIVIT,THER IRON,CA,FA & MIN 1 TABLET PO SCH (08:31)
[2018-02-19] MEDS ORDERED: DILTIAZEM 240 MG CAP.XL.24H PO SCH (09:00)
[2018-02-19] MEDS ORDERED: guaiFENesin/CODEINE 10 ML UDC PO PRN (09:47)
--- NOTE | 2018-02-19 10:17 | XRay Report ---
CLINICAL INFORMATION: cough COMPARISON: 02/17/2018 FINDINGS: Moderate cardiomegaly has increased. Mediastinum is unremarkable. Pulmonary vessels are mildly distended and there is mild interstitial edema. Small bilateral pleural effusions are now noted. Small region of consolidated atelectasis or less likely infiltrate has developed in the the left medial base IMPRESSION: Mild CHF - new Small region of consolidated atelectasis or, less likely, infiltrate developing in the left medial base - retrocardiac region Interpreted and Authenticated by: Jerardo Pulliam 02/19/18
[2018-02-19] MEDS: FUROSEMIDE 20 MG/2 ML VIAL IV SCH ×2 (11:40→16:39)
[2018-02-19] MEDS ORDERED: OLANZapine 10 MG VIAL IM ONE ×2 (14:30→22:10)
--- NOTE | 2018-02-19 18:11 | Internal Med Progress Note ---
Medical - PN: Subj Patient information: Note initiated : 02/19/18 at 6:07 pm Service Date, if different from initiated Date: [] Patient: Irma Francis 87 y/o F admitted on 02/16/18 for Fever/AFib w/RVR. Chief Complaint: [] Interval history: Ms. Francis is a 87 year old F with a history of hypertension, dementia who presents to the emergency department late on Friday/early on Friday. History is obtained speaking with the patient's son, as the patient has dementia and cannot provide much meaningful history. Patient started developing cough on Friday. On Friday she was seen in the clinic, she had was still coughing, only coughed once during her clinic visit however. She received a flu shot as well as a Pneumovax. She continued to have cough and chest symptoms to the rest of the week. On Friday evening she developed fever which prompted the visit to the emergency department. Also on Friday her cough and worsened. In the emergency department the patient had some whitish sputum. She is complaining of shortness of breath when directly asked. She denies any chest pain or tightness or squeezing. According to her son, yesterday she was complaining of some pain but could not localize. Patient denies any palpitations or feeling of racing heart or fluttering in her chest. She denies any nausea or vomiting. Her son is noted that her appetite is good. She's had no edema. Of note, her [id number], with whom she lives part of the week, was discharged from this facility on Friday afternoon admission for pneumococcal as well as mycoplasma pneumonia. In addition to cough or sputum the ED, she is found to be in atrial fibrillation with rapid ventricular response. She had fever to 103 in the emergency department. She was treated with acetaminophen, rate was controlled with diltiazem drip, she has now been admitted to the hospital for further treatment of her pulmonary symptoms, fever and A. fib with RVR. 02/17 Most of the night last night, received 225 mg doses of Seroquel, though did not sleep till day. During the day, attempted to keep her awake to try to reorient to day and night cycles. However at home she is up a lot during the night wandering in the house. Mycoplasma IgM is negative, however parainfluenza 4 virus is positive on respiratory virus panel. Likely explains her cough and fever at presentation. Echocardiogram obtained, called by Dr. Fuentes with preliminary report, patient has severe aortic stenosis with pleural effusions and small pericardial effusions. Discussed this with her 2 sons, given the extent of her underlying and advanced dementia, wish to pursue expectant management with palliative care eventually. She has had a fairly sharp decline in her functional status over the last several months, I clearly related to the aortic stenosis. 02/18 Most the day yesterday, slept all night long, somnolent this morning. However she had been awake most of the night in the ED prior to admission in early a.m. , as well as all the following evening. Discussion with the patient's sons and [id number] today. At this point we'll follow her expectantly, to see how she does in the next 24 hours. They are aware that the severe aortic stenosis likely lead to decline in her health, unclear with the rapidity will be. Discharged to hospice could be appropriate at this point, she does rally, may wish to go to [facility] as I[facility]. Eventually will need transition to hospice. 02/19 Patient seen and examined, overnight events reviewed this morning the patient was quite pleasant and was cooperative. Did not have any concerns. This afternoon however she was agitated trying to get out of bed. Required Zyprexa 5 mg IM. She is being started on Seroquel 12.5 mg at bedtime to see if this helps. Pertinent ROS: Denies headache, dizziness Denies chest pain, palpitations Denies cough or shortness of breath Denies abdominal pain, nausea or vomiting. - Constitutional Vitals: Vital Signs Temp Pulse Resp BP Pulse Ox 97.8 F 88 20 149/79 96 02/19/18 15:33 02/18/18 08:00 02/19/18 15:33 02/19/18 15:33 02/19/18 15:33 Period Temp Pulse Resp BP Sys/Benavidez Pulse Ox Last 24 Hr 96.7 F-98.2 F 16-22 128-157/79-110 94-97 Intake and Output 02/19/18 02/19/18 02/19/18 05:59 13:59 21:59 Intake Total 780 / 780 Output Total 700 / 700 650 / 650 Balance 80 / 80 -650 / -650 Intake & Output: Intake & Output 02/19/18 02/19/18 02/19/18 05:59 13:59 21:59 Intake Total 780 / 780 Output Total 700 / 700 650 / 650 Balance 80 / 80 -650 / -650 Intake: Oral 780 / 780 Output: Void Amount 700 / 700 650 / 650 Other: Meal Lunch Percent of Meal Consumed 100% Feeding Ability Independent Urine Appearance Clear Urine Color Pale Urine Odor Normal Stool Size Large Stool Color Brown Stool Consistency Soft Formed # Voids 1 # Bowel Movements 1 Exam: Constitutional; Afebrile, cooperative, alert, not in distress. Respiratory system: Air Entry equal on both sides, No crackles or wheezing, no rhonchi. CVS- Rate rhythm irregular, S1,S2 heard, no gallop, no rub. aortic systolic murmur Abdomen- Soft nontender abdomen, no organomegaly, no tenderness, no guarding or rigidity, INFORMATION TECHNOLOGY DIRECTOR- AOOx1, moving all extremities, no gross focal deficit noted. Medical - PN: Obj Da - Labs CBC & Chem 7: 02/19/18 04:00 02/19/18 04:00 Labs: Abnormal Lab Results 02/19/18 02/19/18 02/18/18 04:00 04:00 03:53 RBC 3.88 L Hgb 11.6 L Hct 34.6 L RDW 14.7 H MPV 12.5 H Lymph % (Auto) [place] % (Auto) Lymph # (Auto) [place] # (Auto) Glucose Calcium 8.5 L Phosphorus 2.6 L AST 57 H ALT 108 H NT-Pro-B Natriuret Pep 3104.0 H Total Protein 5.7 L Albumin 2.5 L Albumin/Globulin Ratio 0.8 L 02/17/18 02/17/18 03:35 03:35 RBC Hgb Hct RDW 14.7 H MPV 13.0 H Lymph % (Auto) 12.8 L [place] % (Auto) 12.8 H Lymph # (Auto) 1.1 L [place] # (Auto) 1.1 H Glucose 122 H Calcium Phosphorus AST ALT NT-Pro-B Natriuret Pep Total Protein Albumin Albumin/Globulin Ratio Meds: Medications Acetaminophen (Tylenol) 650 mg PO Q4HP PRN PRN Reason: PAIN/FEVER > 101 Last Admin: 02/18/18 08:04 Dose: 650 mg Cyanocobalamin (Vitamin B-12) 2,500 mcg PO DAILY [facility] Last Admin: 02/19/18 08:31 Dose: 2,500 mcg Diltiazem HCl (Cardizem) 10 mg IV Q6HP PRN PRN Reason: Heart Rate- High Diltiazem HCl (Cardizem Cd) 240 mg PO DAILY [facility] Last Admin: 02/19/18 09:25 Dose: 240 mg Divalproex Sodium (Depakote Er) 250 mg PO DAILY [facility] Last Admin: 02/19/18 08:31 Dose: 250 mg Furosemide (Lasix) 20 mg IV BIDD [facility] Last Admin: 02/19/18 16:39 Dose: 20 mg Guaifenesin/Codeine Phosphate (Robitussin Ac) 10 ml PO Q4HP PRN PRN Reason: Cough Diltiazem HCl 125 mg/ Dextrose 125 mls @ 5 mls/hr IV Q12HP PRN; Protocol PRN Reason: Tachyarrhythmias Iron Carb/Multivit/Carlyss/Folic Acid (Multivitamin W/Minerals) 1 tab PO DAILY [facility] Last Admin: 02/19/18 08:31 Dose: 1 tab Melatonin (Melatonin 3mg Tablet) 3 mg PO HS [facility] Last Admin: 02/19/18 00:30 Dose: Not Given Metoprolol Tartrate (Lopressor) 5 mg IV Q6HP PRN PRN Reason: Heart Rate- High Ondansetron HCl (Zofran) 4 mg IV Q4HP PRN PRN Reason: Nausea And Vomiting Quetiapine Fumarate (Seroquel) 12.5 mg PO HS [facility] Rivaroxaban (Xarelto) 15 mg PO BIDCC [facility] Last Admin: 02/19/18 16:39 Dose: 15 mg Sodium Chloride (Saline Flush) 10 ml IV Q8 [facility] Last Admin: 02/19/18 16:39 Dose: 10 ml Trazodone HCl (Desyrel) 50 mg PO HSP PRN PRN Reason: Insomnia Medical - PN: A/P - Time Spent With Patient Total time spent is greater than 50% in coordination of care (as documented) at patient's floor/unit and/or counseling patient: - Narrative A/P Narrative: 87-year-old female presents with fever, cough, found to be in A. fib with rapid ventricular response. Atrial fibrillation rapid ventricular response. Likely triggered by fever and parainfluenza 4 viral illness. Remains rate controlled on 60 mg of diltiazem orally every 6 hours. switched in AM to 240mg q24 hrs. On Xarelto for CVA prophylaxis. Major risks benefits of the medication discussed, all questions answered by the previous provider. CHF noted on X ray today, Iv lasix to be given, will monitor. Severe aortic stenosis. Long discussion with her 2 sons at bedside on Friday evening, again on Friday morning. She is not a surgical candidate given her performance status and advanced dementia. Also unlikely to be a good candidate for TAVR. Given her declining status over the last several months, they wished to pursue expectant management, focusing on keeping her comfort and involving hospice when needed. Plan: Monitor expectantly. We'll follow in the next 24 hours to see if she improves. If rapid decline in functional cardiopulmonary status, we'll consider palliative care. Cough, fever. 2 view chest x-ray, shows improvement of left lung streaky changes. RVP is positive for parainfluenza 4 virus, likely explaining her cough and fever at presentation. Mycoplasma IgM is negative. Plan: repeat CXR today shows ? atelectasis vs pna, mild chf, IV lasix given. Hypertension. On losartan at home. Plan: Stop to allow for adequate hemodynamics use diltiazem for rate control. IF bp remains high, will consider reinitiation of same. Dementia. Patient is pleasant, but at risk for delirium when hospitalized. Had significant owning yesterday. Plan: Continue Depakote, continue bedtime Seroquel but use it as scheduled drug , frequent reorientation, attempt to maintain night and day cycles. overall quite poor prognosis, family aware, plan for D/C to SNF if remains stable. Medical - PN: Qual - VTE Deep Vein Thrombosis/Pulmonary Embolism Present on Admission: No
[2018-02-19] MEDS ORDERED: QUEtiapine 25 MG TABLET PO SCH (21:00)
[2018-02-19] MEDS ORDERED: OLANZapine 10 MG VIAL IM SCH (22:00)
[2018-02-20] MEDS: 0.9 % SODIUM CHLORIDE 10 ML SYRINGE IV SCH ×2 (05:48→06:48)
[2018-02-20] MEDS: 0.9 % SODIUM CHLORIDE 250 ML IV SCH (06:23)
[2018-02-20] MEDS: ACETAMINOPHEN 325 MG TABLET PO PRN (06:28)
[2018-02-20 06:39] LABS: Basophils # (Auto) 0 K/mcL (0.0-0.3); Basophils % (Auto) 0.6 % (0.0-2.0); Eosinophils # (Auto) 0.3 K/mcL (0.0-0.7); Eosinophils % (Auto) 4.2 % (0.0-7.0); Granulocytes % (Auto) 59.5 % (38.0-78.0); Lymphocytes # (Auto) 1.5 K/mcL (1.5-4.8); Lymphocytes % (Auto) 24.9 % (15.5-49.0); Mean Cell Volume 88.7 fL (80.0-100.0); Mean Corpuscular HGB Conc 33.2 g/dL (31.0-36.0); Mean Corpuscular Hemoglobin 29.4 pg (26.0-34.0); Monocytes # (Auto) 0.7 K/mcL (0.1-0.9); Monocytes % (Auto) 10.8 % (1.0-12.0); Platelet Count 237 K/mcL (140-440); RBC 4.04 M/mcL (4.00-5.20)
[2018-02-20] MEDS: RIVAROXABAN 15 MG TABLET PO SCH (06:48)
[2018-02-20] MEDS: FUROSEMIDE 20 MG/2 ML VIAL IV SCH (06:48)
[2018-02-20 07:56] LABS: ALT/SGPT 78 U/l (0-40); Albumin 2.7 gm/dL (3.2-5.2); Albumin/Globulin Ratio 0.8 (1.0-2.3); Alkaline Phosphatase 81 U/L (39-117); Bilirubin,Direct < 0.2 mg/dL (0.0-0.3); Blood Urea Nitrogen 21 mg/dl (8-23); Gamma Glutamyl Transpeptidase 30 U/L (5-36); Uric Acid 5.7 mg/dL (2.5-8.0)
[2018-02-20] MEDS: CYANOCOBALAMIN (VITAMIN B-12) 500 MCG TABLET PO SCH (08:09)
[2018-02-20] MEDS: MULTIVIT,THER IRON,CA,FA & MIN 1 TABLET PO SCH (08:10)
[2018-02-20] MEDS: DIVALPROEX SODIUM 250 MG TAB.ER.24H PO SCH (08:10)
[2018-02-20] MEDS ORDERED: QUEtiapine 25 MG TABLET PO SCH (09:00)
[2018-02-20] MEDS ORDERED: DILTIAZEM 120 MG CAP.XL.24H PO SCH (09:00)
--- NOTE | 2018-02-20 11:00 | Discharge Summary ---
Medical - DS: Prov Patient information: Note initiated : 02/20/18 at 10:50 am Service Date, if different from initiated Date: [] Patient: Irma Francis 87 y/o F admitted on 02/16/18 for Fever/AFib w/RVR. Chief Complaint: [] Date of admission: 02/16/18 09:16 Discharge date: 02/20/18 Consults: 02/16/18 Consult to Physician [CONS] Stat Comment: Consulting Provider: Tanya Montiel Reason For Exam: Physician to Consult Discharging clinician: Saritha Cortez Medical - DS: Meds - Discharge Medications Prescriptions: Diltiazem [Cardizem Cd] 360 mg PO DAILY #30 cap.xl.24h QUEtiapine [Seroquel] 12.5 mg PO BID #30 tab Rivaroxaban [Xarelto] 20 mg PO QPM #30 tab Active and Home Medications: Home Medications Aspirin [Lo-Dose Aspirin EC] 81 mg PO DAILY 02/16/18 [History Confirmed Last Taken Unknown] Cyanocobalamin (Vitamin B-12) [Vitamin B12] 2,500 mcg PO DAILY 02/16/18 [ History Confirmed 02/16/18 Last Taken Unknown] Divalproex Sodium [Depakote] 250 mg PO DAILY 02/16/18 [History Confirmed Last Taken Unknown] Losartan [Cozaar] 50 mg PO DAILY 02/16/18 [History Confirmed 02/16/18 Last Taken Unknown] Melatonin 5 mg PO HS 02/16/18 [History Confirmed 02/16/18 Last Taken Unknown] Multivitamin [One Daily] 1 each PO DAILY 02/16/18 [History Confirmed 02/16/18 Last Taken Unknown] Benzonatate 200 mg PO HS 02/19/18 [History Confirmed 02/19/18 Last Taken Unknown ] Fluticasone Propionate [Flonase Allergy Relief] 2 puff NS DAILY 02/19/18 [ History Confirmed 02/19/18 Last Taken Unknown] Medical - DS: Hosp Hospital course: Ms. Francis is a 87 year old F with a history of hypertension, dementia who presents to the emergency department late on Friday/early on Friday. History is obtained speaking with the patient's son, as the patient has dementia and cannot provide much meaningful history. Patient started developing cough on Friday. On Friday she was seen in the clinic, she had was still coughing, only coughed once during her clinic visit however. She received a flu shot as well as a Pneumovax. She continued to have cough and chest symptoms to the rest of the week. On Friday evening she developed fever which prompted the visit to the emergency department. Also on Friday her cough and worsened. In the emergency department the patient had some whitish sputum. She is complaining of shortness of breath when directly asked. She denies any chest pain or tightness or squeezing. According to her son, yesterday she was complaining of some pain but could not localize. Patient denies any palpitations or feeling of racing heart or fluttering in her chest. She denies any nausea or vomiting. Her son is noted that her appetite is good. She's had no edema. Of note, her [id number], with whom she lives part of the week, was discharged from this facility on Friday afternoon admission for pneumococcal as well as mycoplasma pneumonia. In addition to cough or sputum the ED, she is found to be in atrial fibrillation with rapid ventricular response. She had fever to 103 in the emergency department. She was treated with acetaminophen, rate was controlled with diltiazem drip, she has now been admitted to the hospital for further treatment of her pulmonary symptoms, fever and A. fib with RVR. Parainfluenzae- patient tested positive for parainfluenzae 4, this was likely responsible for her fever and cough, patient was treated conservatively with good response. At the time of discharge, she is afebrile, not having any significant cough. Her microbiology/ blood cultures are negative. Atrial fibrillation with RVR- New onset, patient HR treated with cardizem, IV and then oral, responded well to treatment, will be discharged with po cardizem 360mg daily. She was on oral losartan for HTN, which is being stopped as we added cardizem. patient had Echo done which shows severe aortic stenosis, pulmonary htn, lvh, pt overall has very poor prognosis and this was relayed to the family. In light of dementia/ severe / AFib/ PUlm HTN/ the patient was felt to be a candidate for palliative care/ hospice, patient family has not made any decision yet, but will talk with PCP/physician at the care facility Dementia with behavorial issues- Patient has dementia and has been difficult to control her behavior while in the hospital. This is complicated with likely delirum while in the hospital. She is already on depakote, which is being continued. I am starting the patient on Seroquel 12.5mg bid to see if this helps. She is also on trazodone 50mg qhs prn for sleep. The patient did need IM zyprex x 2 in the last 24 hrs before discharge. The patient this AM was doing well, and seemed cooperative. Her sons were in the room. The care facility is willing to accept the patient knowing that she still has some behavorial issues and would need medication titration/ close supervision. Echo findings Normal LV Size Moderate LVH Septal wall mildly hypokinetic Moderate left atrial dilatation Mild right atrial dilatation Mild to moderate mitral regurgitation Moderate pulmonary hypertension Severe valvular aortic stenosis Mild to moderate aortic insufficiency Small pericardial effusion Discharge diagnosis: Afib with RVR, viral bronchitis. - Time Spent with Patient Total time spent providing and/or coordinating discharge services: Greater than 30 minutes Medical - DS: Exam - Constitutional Vitals: Vital Signs Temp Pulse Resp BP Pulse Ox 02/20/18 07:01 82 L 02/20/18 07:00 98.0 F 22 168/103 98 02/20/18 03:35 98.3 F 20 133/82 94 02/20/18 00:16 98.2 F 20 151/90 95 02/19/18 21:06 146/78 02/19/18 20:12 99.5 F H 18 156/94 96 02/19/18 19:00 94 H 96 02/19/18 15:33 97.8 F 20 149/79 96 02/19/18 11:46 97.7 F 22 157/97 97 Intake and Output 02/19/18 02/20/18 02/20/18 21:59 05:59 13:59 Intake Total 360 / 360 500 / 500 Output Total 650 / 650 1675 / 1675 Balance -650 / -650 -1315 / -1315 500 / 500 Intake: Oral 360 / 360 500 / 500 Output: Void Amount 650 / 650 1675 / 1675 Other: Meal Breakfast Percent of Meal Consumed 100% Urine Appearance Clear Urine Color Bright Yellow Urine Odor Normal Weight 156 lb 4.8 oz Additional comments: Constitutional; Afebrile, cooperative, alert, not in distress. Respiratory system: Air Entry equal on both sides, No crackles or wheezing, no rhonchi. CVS- , S1,S2 heard, no gallop, no rub., aortic systolic murmur, irregular rhythm Abdomen- Soft nontender abdomen, no organomegaly, no tenderness, no guarding or rigidity, RV SERVICER- AOOx1, moving all extremities, no gross focal deficit noted. Medical - DS: Data Labs on day of discharge: Labs from last 24 hours 02/20/18 02/20/18 03:55 03:55 WBC 6.1 RBC 4.04 Hgb 11.9 L Hct 35.8 L MCV 88.7 MCH 29.4 MCHC 33.2 RDW 15.0 H Plt Count 237 MPV 11.7 H Gran % 59.5 Lymph % (Auto) 24.9 [place] % (Auto) 10.8 Eos % (Auto) 4.2 Baso % (Auto) 0.6 Gran # 3.6 Lymph # (Auto) 1.5 [place] # (Auto) 0.7 Eos # (Auto) 0.3 Baso # (Auto) 0 Sodium 142 Potassium 4.0 Chloride 104 Carbon Dioxide 25 Anion Gap 13.0 BUN 21 Creatinine 1.2 H GFR Calculation 41 Glucose 114 H Uric Acid 5.7 Calcium 8.9 Phosphorus 3.3 Magnesium 2.0 Total Bilirubin 0.5 Direct Bilirubin < 0.2 GGT 30 AST 39 H ALT 78 H Alkaline Phosphatase 81 Lactate Dehydrogenase 213 Total Protein 6.2 Albumin 2.7 L Globulin 3.5 Albumin/Globulin Ratio 0.8 L Triglycerides 82 Preliminary micro results at discharge 02/16/18 00:37 Blood Culture - Preliminary Blood 02/16/18 00:42 Blood Culture - Preliminary Blood Medical - DS: A/P - Patient/Caregiver Discharge Instructions Activity: as per physical therapy, increase activity as tolerated Diet: Cardiac Additional Instructions: Follow up with PCP in 1 week. OT/PT/ST at the rehab center You have been started on cardizem 360mg daily for atrial fibrillation, this medication also lowers blood pressure, therefore losartan has been stopped. Your primary provider can review your blood pressure and decide if you need additional treatment. You are also started on a blood thinner to prevent strokes due to atrial fibrillation. Please go to the ER if you notice uncontrolloable bleeding, blood in stools urine, black stools or any other acute concern. Go to the ER if fever, chest pain or any other acute concern. - Follow up Plan Disposition: Xfer SNF Prognosis: Undetermined Rehab Potential: Undetermined I certify that the patient requires SNF services: Yes Overall status at discharge: patient is progressing back to baseline Medical - DS: Qual - VTE Deep Vein Thrombosis/Pulmonary Embolism Present on Admission: No
== END 2018-02-20 13:12 | DRG 309 ==
LOC: ED 00:07 → ICU 09:15
PROVIDERS: ADMIT Internal Medicine; ATTEND Internal Medicine
CPT/HCPCS: 87632; J1644; J1940; J7030; J7050; J7060

== ENCOUNTER 2018-10-11 03:02 | Inpatient (IN) ==
[2018-10-11] MEDS ORDERED: NITROGLYCERIN 1 GM OINT.TOP TD ONE (03:51)
[2018-10-11] MEDS ORDERED: LEVOFLOXACIN 750 MG TABLET PO ONE (03:57)
[2018-10-11] MEDS ORDERED: cefTRIAXone 1 GM in DEXTROSE 5% IN WATER 50 ML IV SCH (04:00)
[2018-10-11] MEDS ORDERED: ACETAMINOPHEN 650 MG SUPP.RECT PR ONE (04:10)
[2018-10-11] MEDS ORDERED: LACTATED RINGERS 1,000 ML IV SCH (04:15)
--- NOTE | 2018-10-11 04:17 | Emergency Department Note ---
SOB HPI - General Chief Complaint: Shortness of Breath/Dyspnea Stated Complaint: shortness of breathe Time Seen by Provider: 10/11/18 03:57 Mode of arrival: wheelchair - History of Present Illness 88-year-old female is brought in by her son in acute respiratory distress. She is also febrile to 102. Not talking. Her son does have a power of assistant district attorney and he does wish her to have antibiotics. She was admitted for pneumonia last fall. A similar presentation this time with worsening respiratory distress in the las t 24 hours. She is not able to provide any history. MD Complaint: shortness of breath Context: recent illness - Related Data Home Medications Medication Instructions Recorded Confirmed Diltiazem [Cardizem] 180 mg PO BID 04/22/18 10/11/18 Furosemide [Lasix] 10 mg PO DAILY 04/22/18 04/22/18 Metoprolol Succinate 04/22/18 Metoprolol Tartrate [Lopressor] 25 mg PO BID 04/22/18 04/22/18 Warfarin [Coumadin] 2 each PO DAILY 04/22/18 10/11/18 Melatonin 2 mg PO HS 10/11/18 10/11/18 Previous Rx's Medication Instructions Recorded Acetaminophen [Tylenol] 650 mg PO Q4HP PRN tablet 02/20/18 QUEtiapine [Seroquel] 12.5 mg PO BID #30 tab 02/20/18 Cephalexin [Keflex] 500 mg PO QID #30 cap 04/22/18 Allergies Allergy/AdvReac Type Severity Reaction Status Date / Time No Known Drug Allergies Allergy Verified 04/22/18 17:01 Review of Systems Limitations: ROS unobtainable due to patients medical condition Past Medical History - Past Medical History Source: nursing notes reviewed Medical history: Reports: atrial fibrillation, dementia, hypertension Surgical history ED: Reports: orthopedic, other (Clavicle fracture) Family history: Reports: non-contributory - Social History smoking status: Never smoker Alcohol use: Reports: None Drug use: Reports: none Physical Exam Limitations: altered mental status General appearance: alert, cachectic, in distress, sleepy Head: atraumatic, normocephalic, normal inspection Eye: Present: normal appearance, PERRL, EOMI ENT: TM's normal bilaterally, normal external ear exam, nasal congestion, other (her mouth is clenched shut) Neck: Present: normal inspection, other (decreased range of motion expected for age and condition) Chest: Present: symmetric chest wall rise Respiratory: Present: respiratory distress, rales/crackles, wheezes, accessory muscle use Cardiovascular: Present: tachycardia, irregular rhythm, systolic murmur Abdominal: Present: soft, hypoactive bowel sounds. Absent: tenderness, guarding Extremities: Present: normal inspection, full ROM. Absent: pedal edema, joint swelling, cyanosis, clubbing Back: Present: normal inspection, other (thoracic kyphosis). Absent: CVA tenderness (R), CVA tenderness (L) Neurological: Present: other (responds to name only) Psychiatric: Present: flat affect Skin: Present: warm, diaphoretic, mottled Course - Reevaluation(s) Reevaluation #1: Patient started on IV antibiotics after blood cultures obtained. In discussion with the son and he does want antibiotics. Treatment for respiratory care. She does have a DNR and he does not want to change that, otherwise he is okay with medical intervention. Patient much improved after oxygen, antibiotics, nitroglycerin 1 inch and she is breathing much less labored after a couple of hours, still has a fever of 101 despite Tylenol. Chest x-ray supporting b ilateral pneumonia. Discussed possible admission with Dr. Cortez Vital Signs Temperature 102.5 F H 10/11/18 03:03 Temperature 101.1 F H 10/11/18 06:55 Pulse Rate 110 H 10/11/18 07:08 Respiratory Rate 24 H 10/11/18 07:08 Blood Pressure 125/81 10/11/18 07:00 Pulse Oximetry (%) 95 10/11/18 07:08 Shortness of Breath/Dyspnea - [facility] Narrative Medical decision making narrative: Impression pneumonia bilateral. Urinary tract infection. Plan is hospital admission - Lab Data Lab results reviewed: Yes I reviewed the patient's lab results. Result diagrams: 10/11/18 03:57 10/11/18 03:57 Lab Results 10/11/18 10/11/18 10/11/18 Range/Units 03:57 03:57 03:57 WBC 10.9 (4.5-11.0) K/mcL RBC 5.00 (4.00-5.20) M/mcL Hgb 13.3 (12.0-15.0) g/dL Hct 41.8 (36.0-48.0) % MCV 83.5 (80.0-100.0) fL MCH 26.6 (26.0-34.0) pg MCHC 31.9 (31.0-36.0) g/dL RDW 16.7 H (11.5-14.5) % Plt Count 249 (140-440) K/mcL MPV 12.8 H (7.4-10.4) fL Gran % 87.5 H (38.0-78.0) % Lymph % (Auto) 5.9 L (15.5-49.0) % [place] % (Auto) 6.3 (1.0-12.0) % Eos % (Auto) 0.2 (0.0-7.0) % Baso % (Auto) 0.1 (0.0-2.0) % Gran # 9.5 H (1.8-8.0) K/mcL Lymph # (Auto) 0.6 L (1.5-4.8) K/mcL [place] # (Auto) 0.7 (0.1-0.9) K/mcL Eos # (Auto) 0 (0.0-0.7) K/mcL Baso # (Auto) 0 (0.0-0.3) K/mcL VBG Lactic Acid (0.5-2.0) mmol/L Sodium 139 (133-145) mmol/L Potassium 4.0 (3.3-5.1) mmol/L Chloride 101 (96-108) mmol/L Carbon Dioxide 21 L (22-30) mmol/L Anion Gap 17.0 H (8-16) BUN 18 (8-23) mg/dl Creatinine 1.0 (0.6-1.1) mg/dl GFR Calculation 51 Glucose 141 H (70-105) mg/dL Calcium 8.7 (8.6-10.4) mg/dl Total Bilirubin 0.8 (0.0-1.0) mg/dL AST 24 (0-37) U/l ALT 16 (0-40) U/l Alkaline Phosphatase 105 (39-117) U/L Troponin T (0-0.03) ng/ml C-Reactive Protein (0.0-0.8) mg/dl NT-Pro-B Natriuret Pep (0-450) pg/ml Total Protein 7.2 (5.9-8.4) gm/dL Albumin 3.8 (3.2-5.2) gm/dL Globulin 3.4 (2.2-3.7) gm/dL Albumin/Globulin Ratio 1.1 (1.0-2.3) Procalcitonin < 0.10 (<0.10) ng/mL Urine Color Urine Appearance Urine pH (5.0-9.0) Ur Specific [place] (1.000-1.035) Urine Protein (NEG) mg/dL Urine Glucose (UA) (NEG) mg/dL Urine Ketones (NEG) mg/dL Urine Occult Blood (<0.03) mg/dL Urine Nitrate (NEG) Urine Bilirubin (NEG) mg/dL Urine Urobilinogen (NEG) mg/dL Ur Leukocyte Esterase (NEG) /uL Urine RBC (0-1) /hpf Urine WBC (0-4) /hpf Ur Squamous Epith Cells (0-4) /hpf Urine Bacteria (0) /hpf Urine Mucus (0) /hpf Ur Culture Indicated? Digoxin ng/mL Digoxin Dose Digox Last Dose Time 10/11/18 10/11/18 10/11/18 Range/Units 03:57 03:57 03:57 WBC (4.5-11.0) K/mcL RBC (4.00-5.20) M/mcL Hgb (12.0-15.0) g/dL Hct (36.0-48.0) % MCV (80.0-100.0) fL MCH (26.0-34.0) pg MCHC (31.0-36.0) g/dL RDW (11.5-14.5) % Plt Count (140-440) K/mcL MPV (7.4-10.4) fL Gran % (38.0-78.0) % Lymph % (Auto) (15.5-49.0) % [place] % (Auto) (1.0-12.0) % Eos % (Auto) (0.0-7.0) % Baso % (Auto) (0.0-2.0) % Gran # (1.8-8.0) K/mcL Lymph # (Auto) (1.5-4.8) K/mcL [place] # (Auto) (0.1-0.9) K/mcL Eos # (Auto) (0.0-0.7) K/mcL Baso # (Auto) (0.0-0.3) K/mcL VBG Lactic Acid (0.5-2.0) mmol/L Sodium (133-145) mmol/L Potassium (3.3-5.1) mmol/L Chloride (96-108) mmol/L Carbon Dioxide (22-30) mmol/L Anion Gap (8-16) BUN (8-23) mg/dl Creatinine (0.6-1.1) mg/dl GFR Calculation Glucose (70-105) mg/dL Calcium (8.6-10.4) mg/dl Total Bilirubin (0.0-1.0) mg/dL AST (0-37) U/l ALT (0-40) U/l Alkaline Phosphatase (39-117) U/L Troponin T < 0.01 (0-0.03) ng/ml C-Reactive Protein (0.0-0.8) mg/dl NT-Pro-B Natriuret Pep 4668.0 H (0-450) pg/ml Total Protein (5.9-8.4) gm/dL Albumin (3.2-5.2) gm/dL Globulin (2.2-3.7) gm/dL Albumin/Globulin Ratio (1.0-2.3) Procalcitonin (<0.10) ng/mL Urine Color Urine Appearance Urine pH (5.0-9.0) Ur Specific [place] (1.000-1.035) Urine Protein (NEG) mg/dL Urine Glucose (UA) (NEG) mg/dL Urine Ketones (NEG) mg/dL Urine Occult Blood (<0.03) mg/dL Urine Nitrate (NEG) Urine Bilirubin (NEG) mg/dL Urine Urobilinogen (NEG) mg/dL Ur Leukocyte Esterase (NEG) /uL Urine RBC (0-1) /hpf Urine WBC (0-4) /hpf Ur Squamous Epith Cells (0-4) /hpf Urine Bacteria (0) /hpf Urine Mucus (0) /hpf Ur Culture Indicated? Digoxin < 0.3 ng/mL Digoxin Dose Not Reportable Digox Last Dose Time Not Reportable 10/11/18 10/11/1819 Range/Units 03:57 04:14 06:14 WBC (4.5-11.0) K/mcL RBC (4.00-5.20) M/mcL Hgb (12.0-15.0) g/dL Hct (36.0-48.0) % MCV (80.0-100.0) fL MCH (26.0-34.0) pg MCHC (31.0-36.0) g/dL RDW (11.5-14.5) % Plt Count (140-440) K/mcL MPV (7.4-10.4) fL Gran % (38.0-78.0) % Lymph % (Auto) (15.5-49.0) % [place] % (Auto) (1.0-12.0) % Eos % (Auto) (0.0-7.0) % Baso % (Auto) (0.0-2.0) % Gran # (1.8-8.0) K/mcL Lymph # (Auto) (1.5-4.8) K/mcL [place] # (Auto) (0.1-0.9) K/mcL Eos # (Auto) (0.0-0.7) K/mcL Baso # (Auto) (0.0-0.3) K/mcL VBG Lactic Acid 2.0 (0.5-2.0) mmol/L Sodium (133-145) mmol/L Potassium (3.3-5.1) mmol/L Chloride (96-108) mmol/L Carbon Dioxide (22-30) mmol/L Anion Gap (8-16) BUN (8-23) mg/dl Creatinine (0.6-1.1) mg/dl GFR Calculation Glucose (70-105) mg/dL Calcium (8.6-10.4) mg/dl Total Bilirubin (0.0-1.0) mg/dL AST (0-37) U/l ALT (0-40) U/l Alkaline Phosphatase (39-117) U/L Troponin T (0-0.03) ng/ml C-Reactive Protein 3.3 H (0.0-0.8) mg/dl NT-Pro-B Natriuret Pep (0-450) pg/ml Total Protein (5.9-8.4) gm/dL Albumin (3.2-5.2) gm/dL Globulin (2.2-3.7) gm/dL Albumin/Globulin Ratio (1.0-2.3) Procalcitonin (<0.10) ng/mL Urine Color Yellow Urine Appearance Hazy Urine pH 5.0 (5.0-9.0) Ur Specific [place] 1.021 (1.000-1.035) Urine Protein 100 A (NEG) mg/dL Urine Glucose (UA) Negative (NEG) mg/dL Urine Ketones Neg (NEG) mg/dL Urine Occult Blood 0.2 A (<0.03) mg/dL Urine Nitrate Pos A (NEG) Urine Bilirubin Neg (NEG) mg/dL Urine Urobilinogen Neg (NEG) mg/dL Ur Leukocyte Esterase 250 A (NEG) /uL Urine RBC 5 H (0-1) /hpf Urine WBC 87 H (0-4) /hpf Ur Squamous Epith Cells < 1 (0-4) /hpf Urine Bacteria Mod A (0) /hpf Urine Mucus Mod (0) /hpf Ur Culture Indicated? Yes Digoxin ng/mL Digoxin Dose Digox Last Dose Time - Radiology Data Radiology results reviewed: Yes I reviewed the patient's radiology results. Disposition Pt seen by DBA DEVELOPER/PA only: No Clinical Impression: Atrial fibrillation with rapid ventricular response, Community acquired pneumonia Disposition: Home, Self-Care Condition: Serious Referrals: Jerardo Morrison MD [Primary Care Provider] -
[2018-10-11] MEDS ORDERED: LEVOFLOXACIN 750 MG/150 ML BAG IV ONE (04:35)
[2018-10-11 05:09] LABS: Basophils # (Auto) 0 K/mcL (0.0-0.3); Basophils % (Auto) 0.1 % (0.0-2.0); Eosinophils # (Auto) 0 K/mcL (0.0-0.7); Eosinophils % (Auto) 0.2 % (0.0-7.0); Granulocytes % (Auto) 87.5 % (38.0-78.0); Hematocrit 41.8 % (36.0-48.0); Hemoglobin 13.3 g/dL (12.0-15.0); Lymphocytes # (Auto) 0.6 K/mcL (1.5-4.8); Lymphocytes % (Auto) 5.9 % (15.5-49.0); Mean Cell Volume 83.5 fL (80.0-100.0); Mean Corpuscular HGB Conc 31.9 g/dL (31.0-36.0); Mean Platelet Volume 12.8 fL (7.4-10.4); Monocytes # (Auto) 0.7 K/mcL (0.1-0.9); Monocytes % (Auto) 6.3 % (1.0-12.0); Platelet Count 249 K/mcL (140-440); Red Cell Distribution Width 16.7 % (11.5-14.5); WBC 10.9 K/mcL (4.5-11.0)
[2018-10-11 05:33] LABS: ALT/SGPT 16 U/l (0-40); AST/SGOT 24 U/l (0-37); Albumin 3.8 gm/dL (3.2-5.2); Albumin/Globulin Ratio 1.1 (1.0-2.3); Alkaline Phosphatase 105 U/L (39-117); Bilirubin,Total 0.8 mg/dL (0.0-1.0); Blood Urea Nitrogen 18 mg/dl (8-23); Calcium 8.7 mg/dl (8.6-10.4); Carbon Dioxide 21 mmol/L (22-30); Chloride 101 mmol/L (96-108); Globulin 3.4 gm/dL (2.2-3.7); Glomerular Filtration Rate 51; Glucose 141 mg/dL (70-105); Sodium 139 mmol/L (133-145)
[2018-10-11 05:37] LABS: Digoxin < 0.3 ng/mL
[2018-10-11 07:00] LABS: Appearance,Urine HAZY; Bacteria,Urine MOD /hpf (0); Bilirubin,Urine NEG (NEG); Color,Urine YELLOW; Culture Indicated,Urine YES; Glucose,Urine (UA) NEGATIVE (NEG); Ketones,Urine NEG (NEG); Leukocyte Esterase,Urine 250 /uL (NEG); Mucus,Urine MOD /hpf (0); Nitrate,Urine POS (NEG); Protein,Urine 100 mg/dL (NEG); Specific Gravity,Urine 1.021 (1.000-1.035); Urine Blood 0.2 mg/dL (<0.03); Urine RBC 5 /hpf (0-1); Urine Squamous Epithelial Cell < 1 /hpf (0-4); Urine WBC 87 /hpf (0-4); Urobilinogen,Urine NEG (NEG)
[2018-10-11 07:42] LABS: INR 2.1 (0.9-1.1); Prothrombin Time 23.3 sec (11.9-14.5)
--- NOTE | 2018-10-11 07:46 | Internal Med History&Physical ---
Medical - H&P: [facility] Patient information: Note initiated : 10/11/18 at 7:42 am Service Date, if different from initiated Date: [] Patient: Irma Francis 88 y/o F admitted on for shortness of breathe. Chief Complaint: [] History of present illness: Ms. Francis is a 88 year old F with history of advanced dementia, usually alert oriented x1, who lives at home with 2 care providers as per son. Comes to the emergency room for evaluation of altered mental status as well as fever cough since 1 day. According to the son who was at bedside the patient has not been doing well since yesterday, she is been having some cough intermittently for the last few days and yesterday spiked a fever and was not her usual self. He therefore brought her to the emergency room. The patient did not have any vomiting or diarrhea as per the patient's son. Patient has advanced dementia alert oriented x1 to self unable to provide any meaningful history. In the emergency room the patient was febrile 102.5, tachycardic heart rate up to 125 blood pressure 114/74, tachypneic with respirations 25-30 saturating 92% on 2 L. Labs show W BC count of 10.9 hemoglobin 13.3 platelets 249 lactic acid is 2 chemistries unremarkable creatinine 1.0 UA suggestive of UTI. Chest x-ray shows bilateral pneumonia bibasilar possible aspiration official report pending. EKG shows atrial fibrillation RVR left axis he was part in the anterior leads. LVH The patient son wishes that the patient be treated medically, okay with BiPAP central line if needed but no CPR or intubation. 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 Reviewed from previous record Medical - H&P: Meds Home Medications Medication Instructions Recorded Confirmed Type Acetaminophen [Tylenol] 650 mg PO Q4HP PRN tablet 02/20/18 Rx QUEtiapine [Seroquel] 12.5 mg PO BID #30 tab 02/20/18 10/11/18 Rx Cephalexin [Keflex] 500 mg PO QID #30 cap 04/22/18 Rx Diltiazem [Cardizem] 180 mg PO BID 04/22/18 10/11/18 History Furosemide [Lasix] 10 mg PO DAILY 04/22/18 04/22/18 History Metoprolol Succinate 04/22/18 History Metoprolol Tartrate [Lopressor] 25 mg PO BID 04/22/18 04/22/18 History Warfarin [Coumadin] 2 each PO DAILY 04/22/18 10/11/18 History Melatonin 2 mg PO HS 10/11/18 10/11/18 History Allergies Allergy/AdvReac Type Severity Reaction Status Date / Time No Known Drug Allergies Allergy Verified 04/22/18 17:01 Medical - H&P: Exam - Constitutional Vitals: Temp Pulse Resp BP Pulse Ox 101.1 F H 110 H 24 H 125/81 95 10/11/18 06:55 10/11/18 07:08 10/11/18 07:08 10/11/18 07:00 10/11/18 07:08 Exam: GENERAL: The patient is a thin frail lady, appears mildly tachypneic intermittently confused but tries to follow commands. Alert oriented x1 VITAL SIGNS: Reviewed and as noted elsewhere. HEENT: Head is normocephalic and atraumatic. Extraocular muscles are intact. Pupils are equal, round, and reactive to light. Nares appeared normal. Mucous membranes are dry. NECK: Normal to inspection, Supple, No lymphadenopathy or thyromegaly. LUNGS: Air entry equal on both sides, patient has bibasilar rhonchi, mild basilar crackles no wheezing noted she is tachypneic mildly but does not appear to be using accessory muscles of respiration. HEART: Tachycardic heart rate, irregular rhythm, systolic murmur noted. ABDOMEN: Soft, nontender, and nondistended. Positive bowel sounds. No hepatosplenomegaly was noted. EXTREMITIES: No cyanosis, clubbing, rash, lesions or edema. NEUROLOGIC: Cranial nerves II through XII are grossly intact. Motor and Sensory System Grossly Intact PSYCHIATRIC: Confused, but does follow commands sometimes SKIN: No ulceration or wounds noted, No jaundice, No rash noted. Medical - H&P: Reslt - Labs CBC & Chem 7: 10/11/18 03:57 10/11/18 03:57 Labs: Short CBC 10/11/18 Range/Units 03:57 WBC 10.9 (4.5-11.0) K/mcL Hgb 13.3 (12.0-15.0) g/dL Hct 41.8 (36.0-48.0) % Plt Count 249 (140-440) K/mcL BMP 10/11/18 03:57 Sodium 139 Potassium 4.0 Chloride 101 Carbon Dioxide 21 L BUN 18 Creatinine 1.0 Glucose 141 H Calcium 8.7 Cardiac Enzymes 10/11/18 Range/Units 03:57 Troponin T < 0.01 (0-0.03) ng/ml Liver Function 10/11/18 Range/Units 03:57 Total Bilirubin 0.8 (0.0-1.0) mg/dL AST 24 (0-37) U/l ALT 16 (0-40) U/l Alkaline Phosphatase 105 (39-117) U/L Albumin 3.8 (3.2-5.2) gm/dL Urine 10/11/18 Range/Units 06:14 Urine Color Yellow Urine Appearance Hazy Urine pH 5.0 (5.0-9.0) Ur Specific [place] 1.021 (1.000-1.035) Urine Protein 100 A (NEG) mg/dL Urine Glucose (UA) Negative (NEG) mg/dL Medical - H&P: A/P - Narrative A/P Narrative: A/P Sepsis Aspiration pneumonia Urinary tract infection -IV fluids, lac is 2.0, bp stable -IV zosyn for now, follow cultures, if mrsa screen positive, will add vanco Septic Encephalopathy -monitor, treat underlying etiology Atrial fibrillatino with RVR -on cardizem, but will hold in ilght of sepsis -IV digoxin for rate control for now -on coumadin for anticoagulation, check INR HTN -Stable bp, monitor for now, resume meds once bp stable x 24 hrs Dementia -will need close monitoring and frequent reorientation. DVT on coumadin DNR code status Regular diet ST/OT/PT eval
--- NOTE | 2018-10-11 08:42 | XRay Report ---
HISTORY: Shortness of breath and cough FINDINGS: There are moderate alveolar infiltrates in both lungs, predominantly involving the lower lobes, left worse than right. There may be small subpulmonic pleural effusions bilaterally. The heart is mildly enlarged but magnified. The pulmonary vessels are partially obscured by the infiltrates but the may be engorged. Comparison with prior exam from 04/22/18 shows the patient had a larger more dense consolidation in the left lower lobe on the prior study. The involvement in the right lung is worse today. IMPRESSION: Moderate bilateral pneumonia. Superimposed congestive heart failure cannot be excluded. Interpreted and Authenticated by: Yomi Banuelos 10/11/18
[2018-10-11] MEDS ORDERED: DIGOXIN 500 MCG/2 ML AMPUL IV ONE (09:07)
[2018-10-11] MEDS ORDERED: ONDANSETRON 4 MG/2 ML VIAL IV PRN (09:07)
[2018-10-11] MEDS ORDERED: NALOXONE HCL 0.4 MG/ML VIAL IV PRN (09:07)
[2018-10-11] MEDS ORDERED: ACETAMINOPHEN 325 MG TABLET PO PRN (09:07)
[2018-10-11] MEDS: LACTATED RINGERS 1,000 ML IV SCH ×2 (09:15→20:28)
[2018-10-11] MEDS: QUEtiapine 25 MG TABLET PO SCH ×2 (09:37→22:11)
[2018-10-11] MEDS: IPRATROPIUM/ALBUTEROL 3 ML AMPUL.NEB NEB SCH ×3 (09:45→20:48)
[2018-10-11] MEDS: PIPERACILLIN SODIUM/TAZOBACTAM 3.375 GM in DEXTROSE 5% IN WATER 50 ML IV SCH ×3 (11:00→19:10)
[2018-10-11] MEDS: 0.9 % SODIUM CHLORIDE 10 ML SYRINGE IV SCH ×2 (13:24→20:29)
[2018-10-11] MEDS ORDERED: METOPROLOL TARTRATE 5 MG/5 ML VIAL IV PRN (21:43)
[2018-10-11] MEDS ORDERED: METOPROLOL TARTRATE 5 MG/5 ML VIAL IV ONE (21:43)
[2018-10-11] MEDS: METOPROLOL TARTRATE 25 MG TABLET PO SCH (22:11)
[2018-10-12] MEDS: PIPERACILLIN SODIUM/TAZOBACTAM 3.375 GM in DEXTROSE 5% IN WATER 50 ML IV SCH ×5 (00:14→23:48)
[2018-10-12 05:09] LABS: Basophils # (Auto) 0 K/mcL (0.0-0.3); Basophils % (Auto) 0.3 % (0.0-2.0); Eosinophils # (Auto) 0 K/mcL (0.0-0.7); Eosinophils % (Auto) 0.1 % (0.0-7.0); Granulocytes % (Auto) 85.6 % (38.0-78.0); Hematocrit 35.9 % (36.0-48.0); Hemoglobin 11.6 g/dL (12.0-15.0); Mean Cell Volume 84.2 fL (80.0-100.0); Mean Corpuscular HGB Conc 32.1 g/dL (31.0-36.0); Monocytes # (Auto) 0.4 K/mcL (0.1-0.9); Platelet Count 176 K/mcL (140-440); RBC 4.27 M/mcL (4.00-5.20); Red Cell Distribution Width 16.4 % (11.5-14.5); WBC 10.4 K/mcL (4.5-11.0)
[2018-10-12] MEDS: 0.9 % SODIUM CHLORIDE 10 ML SYRINGE IV SCH ×3 (05:18→20:21)
[2018-10-12 05:34] LABS: ALT/SGPT 11 U/l (0-40); AST/SGOT 16 U/l (0-37); Albumin 2.4 gm/dL (3.2-5.2); Albumin/Globulin Ratio 0.8 (1.0-2.3); Alkaline Phosphatase 75 U/L (39-117); Bilirubin,Direct 0.3 mg/dL (0.0-0.3); Bilirubin,Total 1.4 mg/dL (0.0-1.0); Blood Urea Nitrogen 15 mg/dl (8-23); Calcium 8.3 mg/dl (8.6-10.4); Carbon Dioxide 23 mmol/L (22-30); Chloride 107 mmol/L (96-108); Globulin 3.1 gm/dL (2.2-3.7); Glomerular Filtration Rate 57; Glucose 82 mg/dL (70-105); Lactate Dehydrogenase 155 U/L (94-250); Magnesium 1.7 mg/dL (1.6-2.5); Phosphorous 3.2 mg/dL (2.7-4.5); Potassium 3.5 mmol/L (3.3-5.1); Sodium 141 mmol/L (133-145); Triglycerides 54 mg/dl (<150); Uric Acid 2.6 mg/dL (2.5-8.0)
[2018-10-12 05:36] LABS: INR 2.5 (0.9-1.1)
[2018-10-12] MEDS: QUEtiapine 25 MG TABLET PO SCH ×2 (07:59→20:20)
[2018-10-12] MEDS: METOPROLOL TARTRATE 25 MG TABLET PO SCH ×2 (07:59→20:21)
[2018-10-12] MEDS: IPRATROPIUM/ALBUTEROL 3 ML AMPUL.NEB NEB SCH ×3 (08:19→20:21)
--- NOTE | 2018-10-12 11:57 | Internal Med Progress Note ---
Medical - PN: Subj Patient information: Note initiated : 10/12/18 at 11:55 am Service Date, if different from initiated Date: [] Patient: Irma Francis 88 y/o F admitted on 10/11/18 for shortness of breathe. Chief Complaint: [] Interval history: Ms. Francis is a 88 year old F with history of advanced dementia, usually alert oriented x1, who lives at home with 2 care providers as per son. Comes to the emergency room for evaluation of altered mental status as well as fever cough since 1 day. According to the son who was at bedside the patient has not been doing well since yesterday, she is been having some cough intermittently for the last few days and yesterday spiked a fever and was not her usual self. He therefore brought her to the emergency room. The patient did not have any vomiting or diarrhea as per the patient's son. Patient has advanced dementia alert oriented x1 to self unable to provide any meaningful history. In the emergency room the patient was febrile 102.5, tachycardic heart rate up to 125 blood pressure 114/74, tachypneic with respirations 25-30 saturating 92% on 2 L. Labs show W BC count of 10.9 hemoglobin 13.3 platelets 249 lactic acid is 2 chemistries unremarkable creatinine 1.0 UA suggestive of UTI. Chest x-ray shows bilateral pneumonia bibasilar possible aspiration official report pending. EKG shows atrial fibrillation RVR left axis he was part in the anterior leads. LVH The patient son wishes that the patient be treated medically, okay with BiPAP central line if needed but no CPR or intubation. Patient will be admitted to telemetry status 10/12 Patient seen and examined, no acute overnight events. Heart rate still variable and remains tachycardic intermittently, patient is afebrile this morning. Urine cultures growing E. coli sensitivity pending Patient remains on broad-spectrum antibiotics day 2 today. Patient denies any acute complaints Pertinent ROS: Denies headache, dizziness Denies chest pain, palpitations Denies cough or shortness of breath Denies abdominal pain, nausea or vomiting. - Constitutional Vitals: Vital Signs Temp Pulse Resp BP Pulse Ox 97.8 F 110 H 20 138/93 97 10/12/18 07:04 10/12/18 08:25 10/12/18 08:25 10/12/18 07:04 10/12/18 07:23 Period Temp Pulse Resp BP Sys/Benavidez Pulse Ox Last 24 Hr 97.7 F-100.0 F 102-114 16-22 92-141/62-104 92-99 Intake and Output 10/11/18 10/12/18 10/12/18 21:59 05:59 13:59 Intake Total 7103 952 0861 Output Total 2 Balance 1100 98 1000 Weight 127 lb 9.6 oz 127 lb 9.6 oz Patient Weight 10/13/18 05:59 Weight 127 lb 9.6 oz Intake & Output: Intake & Output 10/11/18 10/12/18 10/12/18 21:59 05:59 13:59 Intake Total 8311 126 8734 Output Total 2 Balance 1100 98 1000 Weight 127 lb 9.6 oz 127 lb 9.6 oz Intake: IV 8574 727 6402 Lactated Ringers 1,000 ml @ 100 1000 mls/hr IV .Q10H GIOVANNI Rx#: [id number] Zosyn 3.375 gm In Dextrose 5% 100 100 in Water 50 ml @ 100 mls/hr IV Q6H GIOVANNI Rx#:[id number] Output: # of times incontinent of urine 2 Other: Meal Breakfast Percent of Meal Consumed 100% Feeding Ability Assist with Tray Set Up Stool Size Large Stool Color Brown Stool Consistency Loose # Bowel Movements 1 Exam: Constitutional; Afebrile, cooperative, alert, not in distress. Respiratory system: Air Entry equal on both sides, No crackles or wheezing, no rhonchi. CVS- Ratetachycardic rhythm irregular, S1,S2 heard, no gallop, no rub. Abdomen- Soft nontender abdomen, no organomegaly, no tenderness, no guarding or rigidity, DENTIST ATTENDANT- AOOx1, moving all extremities, no gross focal deficit noted. Medical - PN: Obj Da - Labs CBC & Chem 7: 10/12/18 03:40 10/12/18 03:40 Labs: Abnormal Lab Results 10/12/18 10/12/18 10/12/18 03:40 03:40 03:40 Hgb 11.6 L Hct 35.9 L RDW 16.4 H MPV 12.0 H Gran % 85.6 H Lymph % (Auto) 10.0 L Gran # 8.9 H Lymph # (Auto) 1.0 L PT 27.0 H INR 2.5 H Carbon Dioxide Anion Gap Glucose Calcium 8.3 L Total Bilirubin 1.4 H C-Reactive Protein NT-Pro-B Natriuret Pep Total Protein 5.5 L Albumin 2.4 L Albumin/Globulin Ratio 0.8 L Urine Protein Urine Occult Blood Urine Nitrate Ur Leukocyte Esterase Urine RBC Urine WBC Urine Bacteria 10/11/18 10/11/18 10/11/18 06:14 03:57 03:57 Hgb Hct RDW MPV Gran % Lymph % (Auto) Gran # Lymph # (Auto) PT 23.3 H INR 2.1 H Carbon Dioxide Anion Gap Glucose Calcium Total Bilirubin C-Reactive Protein 3.3 H NT-Pro-B Natriuret Pep Total Protein Albumin Albumin/Globulin Ratio Urine Protein 100 A Urine Occult Blood 0.2 A Urine Nitrate Pos A Ur Leukocyte Esterase 250 A Urine RBC 5 H Urine WBC 87 H Urine Bacteria Mod A 10/11/18 10/11/18 10/11/18 03:57 03:57 03:57 Hgb Hct RDW 16.7 H MPV 12.8 H Gran % 87.5 H Lymph % (Auto) 5.9 L Gran # 9.5 H Lymph # (Auto) 0.6 L PT INR Carbon Dioxide 21 L Anion Gap 17.0 H Glucose 141 H Calcium Total Bilirubin C-Reactive Protein NT-Pro-B Natriuret Pep 4668.0 H Total Protein Albumin Albumin/Globulin Ratio Urine Protein Urine Occult Blood Urine Nitrate Ur Leukocyte Esterase Urine RBC Urine WBC Urine Bacteria Meds: Medications Acetaminophen (Tylenol) 650 mg PO Q6HP PRN PRN Reason: PAIN/FEVER > 101 Albuterol/Ipratropium (Duoneb) 3 ml NEB TID [facility] Last Admin: 10/12/18 08:19 Dose: 3 ml Documented by: Piperacillin Sod/Tazobactam (Sod 3.375 gm/ Dextrose) 50 mls @ 100 mls/hr IV Q6H [facility]; Protocol Last Infusion: 10/12/18 05:57 Dose: Infused Documented by: Metoprolol Tartrate (Lopressor) 25 mg PO BID [facility] Last Admin: 10/12/18 07:59 Dose: 25 mg Documented by: Metoprolol Tartrate (Lopressor) 5 mg IV Q4HP PRN PRN Reason: Tachyarrhythmias Naloxone HCl (Narcan) 0.1 mg IV Q2MIN PRN PRN Reason: Opiate Reversal Ondansetron HCl (Zofran) 4 mg IV Q4HP PRN PRN Reason: Nausea And Vomiting Oxycodone/Acetaminophen (Percocet 5-325 Mg) 1 tab PO Q4HP PRN PRN Reason: pain not responding to apap Quetiapine Fumarate (Seroquel) 12.5 mg PO BID [facility] Last Admin: 10/12/18 07:59 Dose: 12.5 mg Documented by: Sodium Chloride (Saline Flush) 10 ml IV Q8 [facility] Last Admin: 10/12/18 05:18 Dose: Not Given Documented by: Medical - PN: A/P - Time Spent With Patient Total time spent is greater than 50% in coordination of care (as documented) at patient's floor/unit and/or counseling patient: - Narrative A/P Narrative: A/P Sepsis _resolved Aspiration pneumonia Urinary tract infection -IV fluids, lac is 2.0, bp stable -IV zosyn for now, follow cultures, mrsa screen is neg, zosyn should cover ecoli uti, and aspiration pneumonia Septic Encephalopathy -pt seems back to baseline. Atrial fibrillation with RVR -on cardizem and metoprolol, oral metoprolol started last night, will start po cardizem today -on coumadin for anticoagulation, INR therapeutic HTN -Stable bp, monitor for now, resume meds once bp stable x 24 hrs Dementia -will need close monitoring and frequent reorientation. stable DVT on coumadin with therapeutic INR DNR code status Regular diet ST/OT/PT eval Medical - PN: Qual - Stroke Symptom Onset Unknown: No - VTE Deep Vein Thrombosis/Pulmonary Embolism Present on Admission: No
[2018-10-12] MEDS: DILTIAZEM 30 MG TABLET PO SCH ×2 (12:34→20:21)
--- NOTE | 2018-10-12 12:53 | Internal Med Progress Note ---
Medical - PN: Subj Patient information: Note initiated : 10/12/18 at 12:49 pm Service Date, if different from initiated Date: [] Patient: Irma Francis 88 y/o F admitted on 10/11/18 for shortness of breathe. Chief Complaint: [] Interval history: Ms. Franics is a 88 year old F with history of advanced dementia, usually alert oriented x1, who lives at home with 2 care providers as per son. Comes to the emergency room for evaluation of altered mental status as well as fever cough since 1 day. According to the son who was at bedside the patient has not been doing well since yesterday, she is been having some cough intermittently for the last few days and yesterday spiked a fever and was not her usual self. He therefore brought her to the emergency room. The patient did not have any vomiting or diarrhea as per the patient's son. Patient has advanced dementia alert oriented x1 to self unable to provide any meaningful history. In the emergency room the patient was febrile 102.5, tachycardic heart rate up to 125 blood pressure 114/74, tachypneic with respirations 25-30 saturating 92% on 2 L. Labs show W BC count of 10.9 hemoglobin 13.3 platelets 249 lactic acid is 2 chemistries unremarkable creatinine 1.0 UA suggestive of UTI. Chest x-ray shows bilateral pneumonia bibasilar possible aspiration official report pending. EKG shows atrial fibrillation RVR left axis he was part in the anterior leads. LVH The patient son wishes that the patient be treated medically, okay with BiPAP central line if needed but no CPR or intubation. Patient will be admitted to telemetry status 10/12 Patient seen and examined, no acute overnight events. Heart rate still variable and remains tachycardic intermittently, patient is afebrile this morning. Urine cultures growing E. coli sensitivity pending Patient remains on broad-spectrum antibiotics day 2 today. Patient denies any acute complaints 10/13 - Constitutional Vitals: Vital Signs Temp Pulse Resp BP Pulse Ox 98.0 F 110 H 16 138/104 96 10/12/18 12:28 10/12/18 08:25 10/12/18 12:28 10/12/18 12:28 10/12/18 12:28 Period Temp Pulse Resp BP Sys/Benavidez Pulse Ox Last 24 Hr 97.8 F-100.0 F 102-110 16-22 92-141/62-104 93-99 Intake and Output 10/11/18 10/12/18 10/12/18 21:59 05:59 13:59 Intake Total 0997 755 9493 Output Total 2 Balance 1100 98 1000 Weight 57.878 kg 57.878 kg Patient Weight 10/13/18 05:59 Weight 57.878 kg Intake & Output: Intake & Output 10/11/18 10/12/18 10/12/18 21:59 05:59 13:59 Intake Total 1650 202 8591 Output Total 2 Balance 1100 98 1000 Weight 57.878 kg 57.878 kg Intake: IV 2270 844 8843 Lactated Ringers 1,000 ml @ 100 1000 mls/hr IV .Q10H [facility] Rx#: [id number] Zosyn 3.375 gm In Dextrose 5% 100 100 in Water 50 ml @ 100 mls/hr IV Q6H [facility] Rx#:[id number] Output: # of times incontinent of urine 2 Other: Meal Breakfast Percent of Meal Consumed 100% Feeding Ability Assist with Tray Set Up Stool Size Large Stool Color Brown Stool Consistency Loose # Bowel Movements 1 Exam: General: Alert, Awake, No acute Distress Eyes/N/T: EOMI, Head/Neck: neck supple, CV: Tachycardic irregular, No murmurs, Pulm: Clear b/l, no wheezing/rhonchi/rales Abd: soft, nontender, +BS x4 Ext: no clubbing/cyanosis/edema Neuro: Alert, no focal deficits, moves all extremities, Skin: warm/dry Medical - PN: Obj Da - Labs CBC & Chem 7: 10/12/18 03:40 10/12/18 03:40 Labs: Abnormal Lab Results 10/12/18 10/12/18 10/12/18 03:40 03:40 03:40 Hgb 11.6 L Hct 35.9 L RDW 16.4 H MPV 12.0 H Gran % 85.6 H Lymph % (Auto) 10.0 L Gran # 8.9 H Lymph # (Auto) 1.0 L PT 27.0 H INR 2.5 H Carbon Dioxide Anion Gap Glucose Calcium 8.3 L Total Bilirubin 1.4 H C-Reactive Protein NT-Pro-B Natriuret Pep Total Protein 5.5 L Albumin 2.4 L Albumin/Globulin Ratio 0.8 L Urine Protein Urine Occult Blood Urine Nitrate Ur Leukocyte Esterase Urine RBC Urine WBC Urine Bacteria 10/11/18 10/11/18 10/11/18 06:14 03:57 03:57 Hgb Hct RDW MPV Gran % Lymph % (Auto) Gran # Lymph # (Auto) PT 23.3 H INR 2.1 H Carbon Dioxide Anion Gap Glucose Calcium Total Bilirubin C-Reactive Protein 3.3 H NT-Pro-B Natriuret Pep Total Protein Albumin Albumin/Globulin Ratio Urine Protein 100 A Urine Occult Blood 0.2 A Urine Nitrate Pos A Ur Leukocyte Esterase 250 A Urine RBC 5 H Urine WBC 87 H Urine Bacteria Mod A 10/11/18 10/11/18 10/11/18 03:57 03:57 03:57 Hgb Hct RDW 16.7 H MPV 12.8 H Gran % 87.5 H Lymph % (Auto) 5.9 L Gran # 9.5 H Lymph # (Auto) 0.6 L PT INR Carbon Dioxide 21 L Anion Gap 17.0 H Glucose 141 H Calcium Total Bilirubin C-Reactive Protein NT-Pro-B Natriuret Pep 4668.0 H Total Protein Albumin Albumin/Globulin Ratio Urine Protein Urine Occult Blood Urine Nitrate Ur Leukocyte Esterase Urine RBC Urine WBC Urine Bacteria Meds: Medications Acetaminophen (Tylenol) 650 mg PO Q6HP PRN PRN Reason: PAIN/FEVER > 101 Albuterol/Ipratropium (Duoneb) 3 ml NEB TID [facility] Last Admin: 10/12/18 08:19 Dose: 3 ml Documented by: Diltiazem HCl (Cardizem) 180 mg PO BID [facility] Last Admin: 10/12/18 12:34 Dose: 180 mg Documented by: Furosemide (Lasix) 10 mg PO DAILY [facility] Piperacillin Sod/Tazobactam (Sod 3.375 gm/ Dextrose) 50 mls @ 100 mls/hr IV Q6H [facility]; Protocol Last Admin: 10/12/18 12:07 Dose: 100 mls/hr Documented by: Melatonin (Melatonin 3mg Tablet) 3 mg PO [facility] Metoprolol Tartrate (Lopressor) 25 mg PO BID [facility] Last Admin: 10/12/18 07:59 Dose: 25 mg Documented by: Metoprolol Tartrate (Lopressor) 5 mg IV Q4HP PRN PRN Reason: Tachyarrhythmias Naloxone HCl (Narcan) 0.1 mg IV Q2MIN PRN PRN Reason: Opiate Reversal Ondansetron HCl (Zofran) 4 mg IV Q4HP PRN PRN Reason: Nausea And Vomiting Oxycodone/Acetaminophen (Percocet 5-325 Mg) 1 tab PO Q4HP PRN PRN Reason: pain not responding to apap Quetiapine Fumarate (Seroquel) 12.5 mg PO BID [facility] Last Admin: 10/12/18 07:59 Dose: 12.5 mg Documented by: Sodium Chloride (Saline Flush) 10 ml IV Q8 [facility] Last Admin: 10/12/18 05:18 Dose: Not Given Documented by: Medical - PN: A/P - Time Spent With Patient Total time spent is greater than 50% in coordination of care (as documented) at patient's floor/unit and/or counseling patient: - Narrative A/P Narrative: A: *Aspiration pneumonia: *UTI (e.coli): *Sepsis: resolved *Encephalopathy, metabolic, superimposed on underlying dementia: *Afib w/RVR: *HTN: *Dementia: * * P: -IV zosyn for now, follow cultures, mrsa screen is neg, zosyn should cover ecoli uti, and aspiration pneumonia -IVF -IS/acapella -on cardizem and metoprolol, oral metoprolol started last night, will start po cardizem today -resume BP meds - - -ST/OT/PT -ppx: Coumadin per pharmacy DNR Medical - PN: Qual - Stroke Symptom Onset Unknown: No - VTE Deep Vein Thrombosis/Pulmonary Embolism Present on Admission: No
[2018-10-12] MEDS: MELATONIN 3 MG TABLET PO SCH (20:20)
[2018-10-12] MEDS: oxyCODONE/APAP 5/325MG TABLET PO PRN (20:21)
[2018-10-13] MEDS: PIPERACILLIN SODIUM/TAZOBACTAM 3.375 GM in DEXTROSE 5% IN WATER 50 ML IV SCH (05:08)
[2018-10-13] MEDS: 0.9 % SODIUM CHLORIDE 10 ML SYRINGE IV SCH ×3 (05:08→21:41)
[2018-10-13 05:55] LABS: Basophils # (Auto) 0 K/mcL (0.0-0.3); Basophils % (Auto) 0.3 % (0.0-2.0); Eosinophils # (Auto) 0.2 K/mcL (0.0-0.7); Eosinophils % (Auto) 2.6 % (0.0-7.0); Hematocrit 33.5 % (36.0-48.0); Hemoglobin 10.8 g/dL (12.0-15.0); Lymphocytes % (Auto) 14.8 % (15.5-49.0); Mean Cell Volume 83.9 fL (80.0-100.0); Mean Corpuscular HGB Conc 32.1 g/dL (31.0-36.0); Mean Platelet Volume 12.1 fL (7.4-10.4); Monocytes # (Auto) 0.4 K/mcL (0.1-0.9); Monocytes % (Auto) 6.3 % (1.0-12.0); Platelet Count 179 K/mcL (140-440); WBC 6.4 K/mcL (4.5-11.0)
[2018-10-13 06:16] LABS: ALT/SGPT 10 U/l (0-40); AST/SGOT 15 U/l (0-37); Albumin 2.2 gm/dL (3.2-5.2); Albumin/Globulin Ratio 0.7 (1.0-2.3); Alkaline Phosphatase 74 U/L (39-117); Bilirubin,Direct < 0.2 mg/dL (0.0-0.3); Bilirubin,Total 0.7 mg/dL (0.0-1.0); Blood Urea Nitrogen 23 mg/dl (8-23); Calcium 8.5 mg/dl (8.6-10.4); Carbon Dioxide 23 mmol/L (22-30); Chloride 108 mmol/L (96-108); Globulin 3.3 gm/dL (2.2-3.7); Glomerular Filtration Rate 45; Glucose 84 mg/dL (70-105); Lactate Dehydrogenase 188 U/L (94-250); Magnesium 1.8 mg/dL (1.6-2.5); Phosphorous 3.3 mg/dL (2.7-4.5); Potassium 3.5 mmol/L (3.3-5.1); Sodium 143 mmol/L (133-145); Triglycerides 75 mg/dl (<150); Uric Acid 2.3 mg/dL (2.5-8.0)
[2018-10-13 06:20] LABS: INR 2.4 (0.9-1.1); Prothrombin Time 26.1 sec (11.9-14.5)
--- NOTE | 2018-10-13 07:08 | Internal Med Progress Note ---
Medical - PN: Subj Patient information: Note initiated : 10/13/18 at 6:59 am Service Date, if different from initiated Date: [] Patient: Irma Francis 88 y/o F admitted on 10/11/18 for shortness of breathe. Chief Complaint: [] Interval history: Ms. Francis is a 88 year old F with history of advanced dementia, usually alert oriented x1, who lives at home with 2 care providers as per son. Comes to the emergency room for evaluation of altered mental status as well as fever cough since 1 day. According to the son who was at bedside the patient has not been doing well since yesterday, she is been having some cough intermittently for the last few days and yesterday spiked a fever and was not her usual self. He therefore brought her to the emergency room. The patient did not have any vomiting or diarrhea as per the patient's son. Patient has advanced dementia alert oriented x1 to self unable to provide any meaningful history. In the emergency room the patient was febrile 102.5, tachycardic heart rate up to 125 blood pressure 114/74, tachypneic with respirations 25-30 saturating 92% on 2 L. Labs show W BC count of 10.9 hemoglobin 13.3 platelets 249 lactic acid is 2 chemistries unremarkable creatinine 1.0 UA suggestive of UTI. Chest x-ray shows bilateral pneumonia bibasilar possible aspiration official report pending. EKG shows atrial fibrillation RVR left axis he was part in the anterior leads. LVH The patient son wishes that the patient be treated medically, okay with BiPAP central line if needed but no CPR or intubation. Patient will be admitted to telemetry status 10/12 Patient seen and examined, no acute overnight events. Heart rate still variable and remains tachycardic intermittently, patient is afebrile this morning. Urine cultures growing E. coli sensitivity pending Patient remains on broad-spectrum antibiotics day 2 today. Patient denies any acute complaints 10/13 No issues overnight. No new complaints. Heart rate got down to 39 last night typically runs 50s to 60s. Clarify medications appears that metoprolol is not on her pharmacy list and the Cardizem is an unusual dosing so we are clarifying that as well. Unable to gather accurate review of systems given dementia - Constitutional Vitals: Vital Signs Temp Pulse Resp BP Pulse Ox 97.4 F 84 18 119/90 95 10/13/18 04:01 10/12/18 21:29 10/13/18 04:01 10/13/18 04:01 10/13/18 04:01 Period Temp Pulse Resp BP Sys/Benavidez Pulse Ox Last 24 Hr 97.4 F-98.8 F 55-110 16-22 95-139/50-104 94-97 Intake and Output 10/12/18 10/13/18 10/13/18 21:59 05:59 13:59 Intake Total 910 50 Output Total 1 1 Balance 909 49 Weight 58.786 kg Intake & Output: Intake & Output 10/12/18 10/13/18 10/13/18 21:59 05:59 13:59 Intake Total 910 50 Output Total 1 1 Balance 909 49 Weight 58.786 kg Intake: Nourishment/Supplement quantity 240 (ml) IV 50 50 Zosyn 3.375 gm In Dextrose 5% 50 50 in Water 50 ml @ 100 mls/hr IV Q6H [facility] Rx#:[id number] Oral 620 Output: # of times incontinent of urine 1 1 Other: Meal Dinner Percent of Meal Consumed 75% Feeding Ability Needs Supervision Nourishment/Supplement name ensure Exam: General: Alert, Awake, No acute Distress Eyes/N/T: EOMI, Head/Neck: neck supple, CV: RRR, No murmurs, Pulm: mild rhonchi on left, no wheezing Abd: soft, nontender, +BS x4 Ext: no clubbing/cyanosis/edema Neuro: Alert, no focal deficits, moves all extremities, dementia Skin: warm/dry Medical - PN: Obj Da - Labs CBC & Chem 7: 10/13/18 03:45 10/13/18 03:45 Labs: Abnormal Lab Results 10/13/18 10/13/18 10/13/18 03:45 03:45 03:45 Hgb 10.8 L Hct 33.5 L RDW 17.0 H MPV 12.1 H Gran % Lymph % (Auto) 14.8 L Gran # Lymph # (Auto) 1.0 L PT 26.1 H INR 2.4 H Carbon Dioxide Anion Gap Glucose Uric Acid 2.3 L Calcium 8.5 L Total Bilirubin C-Reactive Protein NT-Pro-B Natriuret Pep Total Protein 5.5 L Albumin 2.2 L Albumin/Globulin Ratio 0.7 L Urine Protein Urine Occult Blood Urine Nitrate Ur Leukocyte Esterase Urine RBC Urine WBC Urine Bacteria 10/12/18 10/12/18 10/12/18 03:40 03:40 03:40 Hgb 11.6 L Hct 35.9 L RDW 16.4 H MPV 12.0 H Gran % 85.6 H Lymph % (Auto) 10.0 L Gran # 8.9 H Lymph # (Auto) 1.0 L PT 27.0 H INR 2.5 H Carbon Dioxide Anion Gap Glucose Uric Acid Calcium 8.3 L Total Bilirubin 1.4 H C-Reactive Protein NT-Pro-B Natriuret Pep Total Protein 5.5 L Albumin 2.4 L Albumin/Globulin Ratio 0.8 L Urine Protein Urine Occult Blood Urine Nitrate Ur Leukocyte Esterase Urine RBC Urine WBC Urine Bacteria 10/11/18 10/11/18 10/11/18 06:14 03:57 03:57 Hgb Hct RDW MPV Gran % Lymph % (Auto) Gran # Lymph # (Auto) PT 23.3 H INR 2.1 H Carbon Dioxide Anion Gap Glucose Uric Acid Calcium Total Bilirubin C-Reactive Protein 3.3 H NT-Pro-B Natriuret Pep Total Protein Albumin Albumin/Globulin Ratio Urine Protein 100 A Urine Occult Blood 0.2 A Urine Nitrate Pos A Ur Leukocyte Esterase 250 A Urine RBC 5 H Urine WBC 87 H Urine Bacteria Mod A 10/11/18 10/11/18 10/11/18 03:57 03:57 03:57 Hgb Hct RDW 16.7 H MPV 12.8 H Gran % 87.5 H Lymph % (Auto) 5.9 L Gran # 9.5 H Lymph # (Auto) 0.6 L PT INR Carbon Dioxide 21 L Anion Gap 17.0 H Glucose 141 H Uric Acid Calcium Total Bilirubin C-Reactive Protein NT-Pro-B Natriuret Pep 4668.0 H Total Protein Albumin Albumin/Globulin Ratio Urine Protein Urine Occult Blood Urine Nitrate Ur Leukocyte Esterase Urine RBC Urine WBC Urine Bacteria Meds: Medications Acetaminophen (Tylenol) 650 mg PO Q6HP PRN PRN Reason: PAIN/FEVER > 101 Albuterol/Ipratropium (Duoneb) 3 ml NEB TID [facility] Last Admin: 10/12/18 20:21 Dose: 3 ml Documented by: Diltiazem HCl (Cardizem) 180 mg PO BID [facility] Last Admin: 10/12/18 20:21 Dose: 180 mg Documented by: Furosemide (Lasix) 10 mg PO DAILY [facility] Piperacillin Sod/Tazobactam (Sod 3.375 gm/ Dextrose) 50 mls @ 100 mls/hr IV Q6H [facility]; Protocol Last Admin: 10/13/18 05:08 Dose: 100 mls/hr Documented by: Melatonin (Melatonin 3mg Tablet) 3 mg PO HS [facility] Last Admin: 10/12/18 20:20 Dose: 3 mg Documented by: Metoprolol Tartrate (Lopressor) 25 mg PO BID [facility] Last Admin: 10/12/18 20:21 Dose: 25 mg Documented by: Metoprolol Tartrate (Lopressor) 5 mg IV Q4HP PRN PRN Reason: Tachyarrhythmias Naloxone HCl (Narcan) 0.1 mg IV Q2MIN PRN PRN Reason: Opiate Reversal Ondansetron HCl (Zofran) 4 mg IV Q4HP PRN PRN Reason: Nausea And Vomiting Oxycodone/Acetaminophen (Percocet 5-325 Mg) 1 tab PO Q4HP PRN PRN Reason: pain not responding to apap Last Admin: 10/12/18 20:21 Dose: 1 tab Documented by: Quetiapine Fumarate (Seroquel) 12.5 mg PO BID [facility] Last Admin: 10/12/18 20:20 Dose: 12.5 mg Documented by: Sodium Chloride (Saline Flush) 10 ml IV Q8 [facility] Last Admin: 10/13/18 05:08 Dose: 10 ml Documented by: Medical - PN: A/P - Time Spent With Patient Total time spent is greater than 50% in coordination of care (as documented) at patient's floor/unit and/or counseling patient: - Narrative A/P Narrative: A: *Aspiration pneumonia: -now afebrile -on room air this morning *Oropharyngeal Dysphagia, Moderate: *UTI (e.coli): *Sepsis: resolved *Encephalopathy, metabolic, superimposed on underlying dementia: *Afib w/RVR: rate controlled *HTN: *Dementia, advanced: * P: -IV zosyn to levaquin/flagyl -IS/acapella -decrease home cardizem and clarify it and metoprolol -cont home quetiapine - -ST/OT/PT -ppx: Coumadin per pharmacy DNR Medical - PN: Qual - Stroke Symptom Onset Unknown: No - VTE Deep Vein Thrombosis/Pulmonary Embolism Present on Admission: No
[2018-10-13] MEDS: IPRATROPIUM/ALBUTEROL 3 ML AMPUL.NEB NEB SCH (07:16)
[2018-10-13] MEDS ORDERED: DILTIAZEM 30 MG TABLET PO SCH (09:00)
[2018-10-13] MEDS ORDERED: LEVOFLOXACIN 750 MG TABLET PO SCH (09:00)
--- NOTE | 2018-10-13 09:19 | Discharge Summary ---
Medical - DS: Prov Patient information: Note initiated : 10/13/18 at 9:12 am Service Date, if different from initiated Date: [] Patient: Irma Francis 88 y/o F admitted on 10/11/18 for shortness of breathe. Chief Complaint: [] Date of admission: 10/11/18 08:55 Discharge date: 10/14/18 Primary care physician: Jerardo Morrison MD Medical - DS: Meds - Discharge Medications Prescriptions: Diltiazem [Cardizem] 120 mg PO Q8H #20 tab Levofloxacin [Levaquin] 750 mg PO Q48H #2 tab metroNIDAZOLE [Flagyl] 500 mg PO Q8 #15 tab Active and Home Medications: Home Medications Acetaminophen [Tylenol] 650 mg PO Q4HP PRN tablet 02/20/18 [Rx Confirmed 10/11/18 Last Taken Unknown] QUEtiapine [Seroquel] 12.5 mg PO BID #30 tab 02/20/18 [Rx Confirmed 10/11/18 Last Taken Unknown] Diltiazem [Cardizem] 180 mg PO BID 04/22/18 [History Confirmed 10/11/18 Last Taken Unknown] Furosemide [Lasix] 10 mg PO DAILY 04/22/18 [History Confirmed 10/12/18 Last Taken Unknown] Melatonin 2 mg PO HS 10/11/18 [History Confirmed 10/11/18 Last Taken Unknown] Warfarin [Coumadin] 3 mg PO TU@1400 10/12/18 [History Confirmed 10/12/18 Last Taken Unknown] Warfarin [Coumadin] 4 mg PO SUMOWETHFRSA@1400 10/12/18 [History Confirmed 10/12/18 Last Taken Unknown] Medical - DS: Hosp Hospital course: Mr. Francis is a 88 year old F Ms. Francis is a 88 year old F with history of advanced dementia, usually alert oriented x1, who lives at home with 2 care providers as per son. Comes to the emergency room for evaluation of altered mental status as well as fever cough since 1 day. According to the son who was at bedside the patient has not been doing well since yesterday, she is been having some cough intermittently for the last few days and yesterday spiked a fever and was not her usual self. He therefore brought her to the emergency room. The patient did not have any vomiting or diarrhea as per the patient's son. Patient has advanced dementia alert oriented x1 to self unable to provide any meaningful history. In the emergency room the patient was febrile 102.5, tachycardic heart rate up to 125 blood pressure 114/74, tachypneic with respirations 25-30 saturating 92% on 2 L. Labs show W BC count of 10.9 hemoglobin 13.3 platelets 249 lactic acid is 2 chemistries unremarkable creatinine 1.0 UA suggestive of UTI. Chest x-ray shows bilateral pneumonia bibasilar possible aspiration official report pending. EKG shows atrial fibrillation RVR left axis he was part in the anterior leads. LVH The patient son wishes that the patient be treated medically, okay with BiPAP central line if needed but no CPR or intubation. Patient will be admitted to telemetry status 10/12 Patient seen and examined, no acute overnight events. Heart rate still variable and remains tachycardic intermittently, patient is afebrile this morning. Urine cultures growing E. coli sensitivity pending Patient remains on broad-spectrum antibiotics day 2 today. Patient denies any acute complaints 10/13 No issues overnight. No new complaints. Heart rate got down to 39 last night typically runs 50s to 60s. Clarify medications appears that metoprolol is not on her pharmacy list and the Cardizem is an unusual dosing so we are clarifying that as well. 10/14 Agitated at times. Refused some medications. No new complaints. Cardizem Toprol medications clarified, she does not take metoprolol. High risk for readmission given age /frailty/ dementia Discharge diagnosis: Aspiration pneumonia oral pharyngeal dysphasia E. coli UTI sepsis A. fib RV Secondary discharge diagnosis: A. fib RVR hypertension dementia - Time Spent with Patient Total time spent providing and/or coordinating discharge services: Greater than 30 minutes Medical - DS: Exam - Constitutional Vitals: Vital Signs Temp Pulse Resp BP Pulse Ox 10/13/18 07:22 56 L 16 10/13/18 07:14 97.8 F 18 145/77 97 10/13/18 04:01 97.4 F 18 119/90 95 10/13/18 00:02 97.8 F 22 95/50 95 10/12/18 21:29 84 18 10/12/18 20:00 96 10/12/18 19:53 98.8 F 22 108/78 94 10/12/18 15:25 55 L 18 10/12/18 15:11 98.6 F 18 139/68 96 10/12/18 12:32 138/104 10/12/18 12:28 98.0 F 16 138/104 96 Intake and Output 10/12/18 10/13/18 10/13/18 21:59 05:59 13:59 Intake Total 910 50 Output Total 1 1 Balance 909 49 Intake: Nourishment/Supplement quantity 240 (ml) IV 50 50 Zosyn 3.375 gm In Dextrose 5% 50 50 in Water 50 ml @ 100 mls/hr IV Q6H [facility] Rx#:[id number] Oral 620 Output: # of times incontinent of urine 1 1 Other: Meal Dinner Breakfast Percent of Meal Consumed 75% 100% Feeding Ability Needs Supervision Assist with Tray Set Up Nourishment/Supplement name ensure Weight 58.786 kg Medical - DS: Data Labs on day of discharge: Labs from last 24 hours 10/13/18 10/13/18 10/13/18 03:45 03:45 03:45 WBC 6.4 RBC 4.00 Hgb 10.8 L Hct 33.5 L MCV 83.9 MCH 26.9 MCHC 32.1 RDW 17.0 H Plt Count 179 MPV 12.1 H Gran % 76.0 Lymph % (Auto) 14.8 L [place] % (Auto) 6.3 Eos % (Auto) 2.6 Baso % (Auto) 0.3 Gran # 4.9 Lymph # (Auto) 1.0 L [place] # (Auto) 0.4 Eos # (Auto) 0.2 Baso # (Auto) 0 PT 26.1 H INR 2.4 H Sodium 143 Potassium 3.5 Chloride 108 Carbon Dioxide 23 Anion Gap 12.0 BUN 23 Creatinine 1.1 GFR Calculation 45 Glucose 84 Uric Acid 2.3 L Calcium 8.5 L Phosphorus 3.3 Magnesium 1.8 Total Bilirubin 0.7 Direct Bilirubin < 0.2 GGT 10 AST 15 ALT 10 Alkaline Phosphatase 74 Lactate Dehydrogenase 188 Total Protein 5.5 L Albumin 2.2 L Globulin 3.3 Albumin/Globulin Ratio 0.7 L Triglycerides 75 Preliminary micro results at discharge 10/11/18 04:19 Blood Culture - Preliminary Blood 10/11/18 04:14 Blood Culture - Preliminary Blood Medical - DS: A/P - Patient/Caregiver Discharge Instructions Activity: increase activity as tolerated Diet: Dysphagia Mech Alter Prescriptions: Diltiazem [Cardizem] 120 mg PO Q8H #20 tab Levofloxacin [Levaquin] 750 mg PO Q48H #2 tab metroNIDAZOLE [Flagyl] 500 mg PO Q8 #15 tab - Follow up Plan Follow up with: Jerardo Morrison MD [Primary Care Provider] - Disposition: Home, Self-Care Prognosis: Serious Rehab Potential: Fair Overall status at discharge: patient is progressing back to baseline Medical - DS: Qual - VTE Deep Vein Thrombosis/Pulmonary Embolism Present on Admission: No
--- NOTE | 2018-10-13 09:30 | XRay Report ---
INDICATION: Cough. Dyspnea. TECHNIQUE: PA and lateral upright chest x-ray COMPARISON: Previous chest x-rays dated 10/11/2018, 04/22/2018, 02/19/2018 FINDINGS:There is left lower lobe volume loss and consolidation. This has been present on multiple previous examinations but is worse since 10/11/2018. Appearance remains consistent with pneumonia. There is a left pleural effusion which is larger than on 10/11/2018. This is considered small to moderate. There is blunting of the right costophrenic angle consistent with small right pleural effusion. Mid and upper lungs are negative. Heart size and vascularity are within normal limits. No evidence for pulmonary edema. There is moderate cardiomegaly, unchanged. IMPRESSION: 1. Left lower lobe volume loss and consolidation consistent with pneumonia. Findings are slightly worsened on 0 623 2. Bilateral pleural effusions, left larger than right. Left pleural effusion is increased since 10/11/2018 Interpreted and Authenticated by: Jerardo Adkins 10/13/18
[2018-10-13] MEDS: QUEtiapine 25 MG TABLET PO SCH ×2 (09:56→20:31)
[2018-10-13] MEDS: FUROSEMIDE 20 MG TABLET PO SCH (09:57)
[2018-10-13] MEDS: DILTIAZEM 30 MG TABLET PO SCH ×4 (12:34→23:32)
[2018-10-13] MEDS: metroNIDAZOLE 500 MG TABLET PO SCH ×2 (12:35→21:40)
--- NOTE | 2018-10-13 12:46 | Ultrasound Report ---
CLINICAL INFORMATION: Pneumonia TECHNIQUE: Routine ultrasound of the left pleural space COMPARISON: Previous chest x-rays dated 10/13/2018, 10/11/2018 FINDINGS: There is a moderate left pleural effusion. No septations or significant debris identified. No sonographic evidence for empyema. IMPRESSION: Moderate pleural effusion. Pleural fluid appears simple Interpreted and Authenticated by: Jerardo Adkins 10/13/18
--- NOTE | 2018-10-13 13:35 | Ultrasound Report ---
CLINICAL INFORMATION: Pneumonia. Left pleural effusion. Possible empyema TECHNIQUE: Informed consent was obtained. Moderate left pleural effusion was localized with ultrasound. Routine ChloraPrep skin cleansing. 1% lidocaine injected subcutaneously and deep. A 6 Cymro safe t centesis set was utilized. 500 and clear yellow fluid removed. Fluid was sent for appropriate laboratory studies. No immediate complications. Postprocedure chest x-ray is pending. IMPRESSION: 1. Ultrasound-guided left paracentesis 2. 500 mL of clear yellow fluid removed Interpreted and Authenticated by: Jerardo Adkins 10/13/18
--- NOTE | 2018-10-13 13:38 | XRay Report ---
INDICATION: Status post ultrasound-guided left thoracentesis TECHNIQUE: AP chest x-ray,portable upright COMPARISON: Prethoracentesis chest x-ray dated 10/13/2018 FINDINGS:Interval decrease in left pleural effusion. There is no left pneumothorax. Bibasilar infiltrates remain present, unchanged IMPRESSION: No left pneumothorax, status post left ultrasound-guided thoracentesis Interpreted and Authenticated by: Jerardo Adkins 10/13/18
[2018-10-13] MEDS ORDERED: IPRATROPIUM/ALBUTEROL 3 ML AMPUL.NEB NEB PRN (14:24)
[2018-10-13 14:39] LABS: Glucose,Pleural Fluid 119 mg/dL; LDH,Pleural Fluid 107 U/L
[2018-10-13 15:48] LABS: Appearance,Pleural Fluid HAZY; Color,Pleural Fluid YELLOW; Nucleated Cells,Pleural Fld 2454 /cumm; RBC,Pleural Fluid < 50000 /cumm
[2018-10-13 15:54] LABS: Lymphocytes,Pleural Fluid 17 %; Macrophages,Pleural Fluid 6 %; Mesothelial,Pleural Fluid 3 %; Monocytes,Pleural Fluid 2 %; Neutrophils,Pleural Fluid 72 %
[2018-10-13] MEDS: oxyCODONE/APAP 5/325MG TABLET PO PRN (20:30)
[2018-10-13] MEDS: MELATONIN 3 MG TABLET PO SCH (20:30)
[2018-10-14] MEDS: DILTIAZEM 30 MG TABLET PO SCH ×3 (05:21→10:53)
[2018-10-14] MEDS: metroNIDAZOLE 500 MG TABLET PO SCH ×2 (05:21→06:22)
[2018-10-14] MEDS: 0.9 % SODIUM CHLORIDE 10 ML SYRINGE IV SCH (05:22)
[2018-10-14 06:03] LABS: Basophils # (Auto) 0 K/mcL (0.0-0.3); Basophils % (Auto) 0.4 % (0.0-2.0); Eosinophils # (Auto) 0.4 K/mcL (0.0-0.7); Eosinophils % (Auto) 8.2 % (0.0-7.0); Granulocytes % (Auto) 59.9 % (38.0-78.0); Hematocrit 32.3 % (36.0-48.0); Hemoglobin 10.5 g/dL (12.0-15.0); Lymphocytes # (Auto) 1.2 K/mcL (1.5-4.8); Lymphocytes % (Auto) 23.3 % (15.5-49.0); Mean Cell Volume 83.4 fL (80.0-100.0); Mean Corpuscular HGB Conc 32.4 g/dL (31.0-36.0); Mean Platelet Volume 11.5 fL (7.4-10.4); Monocytes # (Auto) 0.4 K/mcL (0.1-0.9); Monocytes % (Auto) 8.2 % (1.0-12.0); Platelet Count 212 K/mcL (140-440); RBC 3.88 M/mcL (4.00-5.20); Red Cell Distribution Width 16.2 % (11.5-14.5); WBC 5.1 K/mcL (4.5-11.0)
[2018-10-14 06:15] LABS: INR 1.9 (0.9-1.1); Prothrombin Time 21.8 sec (11.9-14.5)
[2018-10-14 06:31] LABS: ALT/SGPT 10 U/l (0-40); AST/SGOT 16 U/l (0-37); Albumin 2.3 gm/dL (3.2-5.2); Albumin/Globulin Ratio 0.7 (1.0-2.3); Alkaline Phosphatase 65 U/L (39-117); Bilirubin,Direct < 0.2 mg/dL (0.0-0.3); Bilirubin,Total 0.6 mg/dL (0.0-1.0); Blood Urea Nitrogen 25 mg/dl (8-23); Calcium 8.3 mg/dl (8.6-10.4); Carbon Dioxide 22 mmol/L (22-30); Chloride 109 mmol/L (96-108); Globulin 3.2 gm/dL (2.2-3.7); Glomerular Filtration Rate 57; Glucose 70 mg/dL (70-105); Lactate Dehydrogenase 211 U/L (94-250); Magnesium 1.9 mg/dL (1.6-2.5); Phosphorous 2.6 mg/dL (2.7-4.5); Potassium 4.1 mmol/L (3.3-5.1); Sodium 143 mmol/L (133-145); Triglycerides 70 mg/dl (<150); Uric Acid 2.6 mg/dL (2.5-8.0)
--- NOTE | 2018-10-14 07:25 | Internal Med Progress Note ---
Medical - PN: Subj Patient information: Note initiated : 10/14/18 at 7:23 am Service Date, if different from initiated Date: [] Patient: Irma Francis 88 y/o F admitted on 10/11/18 for shortness of breathe. Chief Complaint: [] Interval history: Ms. Francis is a 88 year old F with history of advanced dementia, usually alert oriented x1, who lives at home with 2 care providers as per son. Comes to the emergency room for evaluation of altered mental status as well as fever cough since 1 day. According to the son who was at bedside the patient has not been doing well since yesterday, she is been having some cough intermittently for the last few days and yesterday spiked a fever and was not her usual self. He therefore brought her to the emergency room. The patient did not have any vomiting or diarrhea as per the patient's son. Patient has advanced dementia alert oriented x1 to self unable to provide any meaningful history. In the emergency room the patient was febrile 102.5, tachycardic heart rate up to 125 blood pressure 114/74, tachypneic with respirations 25-30 saturating 92% on 2 L. Labs show W BC count of 10.9 hemoglobin 13.3 platelets 249 lactic acid is 2 chemistries unremarkable creatinine 1.0 UA suggestive of UTI. Chest x-ray shows bilateral pneumonia bibasilar possible aspiration official report pending. EKG shows atrial fibrillation RVR left axis he was part in the anterior leads. LVH The patient son wishes that the patient be treated medically, okay with BiPAP central line if needed but no CPR or intubation. Patient will be admitted to telemetry status 10/12 Patient seen and examined, no acute overnight events. Heart rate still variable and remains tachycardic intermittently, patient is afebrile this morning. Urine cultures growing E. coli sensitivity pending Patient remains on broad-spectrum antibiotics day 2 today. Patient denies any acute complaints 10/13 No issues overnight. No new complaints. Heart rate got down to 39 last night typically runs 50s to 60s. Clarify medications appears that metoprolol is not on her pharmacy list and the Cardizem is an unusual dosing so we are clarifying that as well. 10/14 Agitated at times. Refused some medications. No new complaints. Cardizem Toprol medications clarified, she does not take metoprolol Unable to gather accurate review of systems given dementia - Constitutional Vitals: Vital Signs Temp Pulse Resp BP Pulse Ox 96.7 F L 75 16 139/89 95 10/14/18 04:14 10/13/18 21:39 10/14/18 04:14 10/14/18 04:14 10/14/18 04:14 Period Temp Pulse Resp BP Sys/Benavidez Pulse Ox Last 24 Hr 96.7 F-100.0 F 75-75 16-18 122-155/62-89 92-97 Intake and Output 10/13/18 10/14/18 10/14/18 21:59 05:59 13:59 Output Total 1 Balance -1 Weight 57.878 kg Intake & Output: Intake & Output 10/13/18 10/14/18 10/14/18 21:59 05:59 13:59 Output Total 1 Balance -1 Weight 57.878 kg Output: # of times incontinent of urine 1 Other: Meal Dinner Percent of Meal Consumed 25% Exam: General: Alert, Awake, No acute Distress Eyes/N/T: EOMI, Head/Neck: neck supple, CV: RRR, 2/6 SM, Pulm: mild rhonchi on left, no wheezing Abd: soft, nontender, +BS x4 Ext: no clubbing/cyanosis/edema Neuro: Alert, no focal deficits, moves all extremities, dementia Skin: warm/dry Medical - PN: Obj Da - Labs CBC & Chem 7: 10/14/18 03:50 10/14/18 03:50 Labs: Abnormal Lab Results 10/14/18 10/14/18 10/14/18 03:50 03:50 03:50 RBC 3.88 L Hgb 10.5 L Hct 32.3 L RDW 16.2 H MPV 11.5 H Gran % Lymph % (Auto) Eos % (Auto) 8.2 H Gran # Lymph # (Auto) 1.2 L PT 21.8 H INR 1.9 H Chloride 109 H BUN 25 H Uric Acid Calcium 8.3 L Phosphorus 2.6 L Total Bilirubin Total Protein 5.5 L Albumin 2.3 L Albumin/Globulin Ratio 0.7 L 10/13/18 10/13/18 10/13/18 03:45 03:45 03:45 RBC Hgb 10.8 L Hct 33.5 L RDW 17.0 H MPV 12.1 H Gran % Lymph % (Auto) 14.8 L Eos % (Auto) Gran # Lymph # (Auto) 1.0 L PT 26.1 H INR 2.4 H Chloride BUN Uric Acid 2.3 L Calcium 8.5 L Phosphorus Total Bilirubin Total Protein 5.5 L Albumin 2.2 L Albumin/Globulin Ratio 0.7 L 10/12/18 10/12/18 10/12/18 03:40 03:40 03:40 RBC Hgb 11.6 L Hct 35.9 L RDW 16.4 H MPV 12.0 H Gran % 85.6 H Lymph % (Auto) 10.0 L Eos % (Auto) Gran # 8.9 H Lymph # (Auto) 1.0 L PT 27.0 H INR 2.5 H Chloride BUN Uric Acid Calcium 8.3 L Phosphorus Total Bilirubin 1.4 H Total Protein 5.5 L Albumin 2.4 L Albumin/Globulin Ratio 0.8 L 10/11/18 03:57 RBC Hgb Hct RDW MPV Gran % Lymph % (Auto) Eos % (Auto) Gran # Lymph # (Auto) PT 23.3 H INR 2.1 H Chloride BUN Uric Acid Calcium Phosphorus Total Bilirubin Total Protein Albumin Albumin/Globulin Ratio Meds: Medications Acetaminophen (Tylenol) 650 mg PO Q6HP PRN PRN Reason: PAIN/FEVER > 101 Albuterol/Ipratropium (Duoneb) 3 ml NEB Q6HP PRN PRN Reason: Shortness Of Breath Or Wheezing Diltiazem HCl (Cardizem) 60 mg PO Q6H [facility] Last Admin: 10/14/18 06:22 Dose: Not Given Documented by: Furosemide (Lasix) 10 mg PO DAILY [facility] Last Admin: 10/13/18 09:57 Dose: 10 mg Documented by: Levofloxacin (Levaquin) 750 mg PO Q48H [facility]; Protocol Last Admin: 10/13/18 09:57 Dose: 750 mg Documented by: Melatonin (Melatonin 3mg Tablet) 3 mg PO HS [facility] Last Admin: 10/13/18 20:30 Dose: 3 mg Documented by: Metoprolol Tartrate (Lopressor) 5 mg IV Q4HP PRN PRN Reason: Tachyarrhythmias Metronidazole (Flagyl) 500 mg PO Q8 [facility]; Protocol Last Admin: 10/14/18 06:22 Dose: Not Given Documented by: Naloxone HCl (Narcan) 0.1 mg IV Q2MIN PRN PRN Reason: Opiate Reversal Ondansetron HCl (Zofran) 4 mg IV Q4HP PRN PRN Reason: Nausea And Vomiting Oxycodone/Acetaminophen (Percocet 5-325 Mg) 1 tab PO Q4HP PRN PRN Reason: pain not responding to apap Last Admin: 10/13/18 20:30 Dose: 1 tab Documented by: Quetiapine Fumarate (Seroquel) 12.5 mg PO BID [facility] Last Admin: 10/13/18 20:31 Dose: 12.5 mg Documented by: Sodium Chloride (Saline Flush) 10 ml IV Q8 [facility] Last Admin: 10/14/18 05:22 Dose: 10 ml Documented by: Medical - PN: A/P - Time Spent With Patient Total time spent is greater than 50% in coordination of care (as documented) at patient's floor/unit and/or counseling patient: - Narrative A/P Narrative: A: *Aspiration pneumonia: -now afebrile -on room air now *Oropharyngeal Dysphagia, Moderate: *UTI (e.coli): *Sepsis: resolved *Encephalopathy, metabolic, superimposed on underlying dementia: at baseline *Afib w/RVR: rate controlled *HTN: *Dementia, advanced: * P: -levaquin/flagyl -IS/acapella -cont cardizem -cont home quetiapine - -ST/OT/PT -ppx: Coumadin per pharmacy DNR Medical - PN: Qual - Stroke Symptom Onset Unknown: No - VTE Deep Vein Thrombosis/Pulmonary Embolism Present on Admission: No
[2018-10-14] MEDS: QUEtiapine 25 MG TABLET PO SCH (10:53)
[2018-10-14] MEDS: FUROSEMIDE 20 MG TABLET PO SCH (10:53)
--- NOTE | 2018-10-15 14:05 | Non-GYN Cytology Report ---
NON [employer] SPECIMEN NG DX CATEGORY Negative MICROSCOPIC DIAGNOSIS PLEURAL FLUID, LEFT, THORACENTESIS: -- NO ATYPICAL OR MALIGNANT CELLS IDENTIFIED. -- REACTIVE MESOTHELIAL CELLS WITH ACUTE INFLAMMATION. (RLF:samantha) MICROSCOPIC DESCRIPTION Thinprep, cytospin and cell block slides are examined and demonstrate reactive mesothelial cells, macrophages, neutrophils and lymphocytes. No atypical or malignant cells are identified. (RLF:samantha) CLINICAL HISTORY Left pleural effusion. EXTERNAL COMMENT ~600 mL yellow fluid: 1 thinprep, 1 H/E, 1 Diff Quik, 1 Fay Giemsa, 1 cell block Electronically Signed by: Helga Sky M.D.
== END 2018-10-14 14:30 | disposition home or self-care (01) | DRG 871 ==
LOC: ED 03:02 → ICU 08:55
PROVIDERS: ADMIT Internal Medicine; ATTEND Internal Medicine

== ENCOUNTER 2018-10-18 11:52 | Inpatient (IN) ==
--- NOTE | 2018-10-18 12:53 | XRay Report ---
CLINICAL INFORMATION: Fall. Hip pain. TECHNIQUE: AP pelvis and right hip COMPARISON: None. FINDINGS: Mildly displaced right intertrochanteric hip fracture. There is slight varus angulation. Pelvis is negative. No fracture. No lytic lesion. There is degenerative disease of the pubic symphysis. There is degenerative disease in the lower lumbar spine IMPRESSION: Intertrochanteric right hip fracture Interpreted and Authenticated by: Jerardo Adkins 10/18/18
--- NOTE | 2018-10-18 12:55 | XRay Report ---
CLINICAL INFORMATION: Fall. Shoulder pain TECHNIQUE: AP internal and external rotation views, transscapular Y view COMPARISON: None. FINDINGS: Degenerative joint disease with narrowing of the glenohumeral joint. There is superior centering of the humeral head consistent with rotator cuff. No acute fracture. No glenohumeral dislocation. Scapula and clavicle are negative. There is degenerative disease at the acromioclavicular joint IMPRESSION: 1. No acute abnormality 2. 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
--- NOTE | 2018-10-18 12:57 | XRay Report ---
CLINICAL INFORMATION: Fall. Leg and hip pain TECHNIQUE: AP and lateral right femur COMPARISON: Right hip dated 10/18/2018 FINDINGS: Intertrochanteric right hip fracture with mild displacement and varus angulation. This was described in a separate report Previous right knee arthroplasty Examination is otherwise negative. Right femoral diaphysis is negative. There is no fracture. IMPRESSION: 1. Right hip fracture 2. Otherwise negative right femur Interpreted and Authenticated by: Jerardo Adkins 10/18/18
--- NOTE | 2018-10-18 13:17 | Emergency Department Note ---
Fall HPI - General Chief Complaint: Fall Stated Complaint: Fall, Right Upper Leg Pain Time Seen by Provider: 10/18/18 13:14 Source: patient, family Mode of arrival: wheelchair - History of Present Illness HPI Narrative: Patient is an 88-year-old female with a history of dementia and when she was at home today her daughter reports that she stumbled backwards and fell. She hit t he right shoulder onto the counter when she fell and has been complaining of right hip and shoulder pain. She did not lose consciousness. The daughter reports that she is at her normal cognitive baseline. She denies any chest pain, shortness of breath, or difficulty breathing. She does have a history of A. fib and is on anticoagulant. She denies hitting her head or headache. - Related Data Home Medications Medication Instructions Recorded Confirmed Furosemide [Lasix] 10 mg PO PRN PRN 04/22/18 10/18/18 Warfarin [Coumadin] 3 mg PO TU@1400 10/12/18 10/18/18 Warfarin [Coumadin] 4 mg PO SUMOWETHFRSA@1400 10/12/18 10/18/18 Previous Rx's Medication Instructions Recorded QUEtiapine [Seroquel] 12.5 mg PO BID #30 tab 02/20/18 Diltiazem [Cardizem] 120 mg PO Q8H #20 tab 10/13/18 metroNIDAZOLE [Flagyl] 500 mg PO Q8 #15 tab 10/13/18 Allergies Allergy/AdvReac Type Severity Reaction Status Date / Time No Known Drug Allergies Allergy Verified 04/22/18 17:01 Review of Systems All systems ED: reviewed and negative except as stated. Fall PMH - Past Medical History Medical history: Reports: atrial fibrillation, dementia, hypertension - Social History smoking status: Never smoker Alcohol use: Reports: None Drug use: Reports: none Physical Exam Limitations: no limitations, altered mental status General appearance: alert, in no apparent distress Head: atraumatic, normocephalic, normal inspection Eye: Present: normal appearance, PERRL. Absent: conjunctival injection, periorbital swelling, periorbital tenderness ENT: normal exam, normal oropharynx Neck: Present: normal inspection, full ROM. Absent: tenderness Chest: Present: normal inspection, symmetric chest wall rise. Absent: tendern ess Respiratory: Present: normal lung sounds bilaterally. Absent: respiratory distress, rales/crackles, wheezes, stridor, accessory muscle use, prolonged expiratory phase Cardiovascular: Present: regular rate, irregular rhythm. Absent: systolic mur mur, diastolic murmur Abdominal: Present: soft. Absent: distention, tenderness, guarding, rebound, rigidity, organomegaly, mass Shoulder: Present: other (Right shoulder has a small superficial abrasion with small amount of ecchymosis on the lateral side of the right shoulder. Tenderness with palpation over the anterior lateral side of his right shoulder. No clavicle tenderness. No deformities.) Arm: Present: normal inspection, full ROM. Absent: tenderness, swelling, abrasion, laceration, ecchymosis, deformity Vascular: Normal: capillary refill (less than 2 seconds), radial pulse (2+) Hip/Pelvis: Present: other (Tenderness with palpation over the lateral side rig ht hip. Small amount of external rotation is noted. Pedal pulse 2+. Sensation normal. Feet are cool to touch bilaterally.). Absent: swelling Upper leg: Present: normal inspection, tenderness (palpation of the lateral side right femur.). Absent: swelling, ecchymosis, deformity Neurovascular/Tendon: Present: normal capillary refill Back: Present: normal inspection. Absent: tenderness, spinous process tenderness Neurological: Present: alert (oriented to self) Psychiatric: Present: normal affect, normal mood Skin: Present: cool, dry, intact, normal color Course Vital Signs Temperature 97.9 F 10/18/18 11:52 Pulse Rate 54 L 10/18/18 11:52 Respiratory Rate 18 10/18/18 11:52 Blood Pressure 127/68 10/18/18 11:52 Pulse Oximetry (%) 93 10/18/18 11:52 Temperature 97.9 F 10/18/18 16:15 Pulse Rate 43 L 10/18/18 16:15 Respiratory Rate 18 10/18/18 16:15 Blood Pressure 144/89 10/18/18 16:15 Pulse Oximetry (%) 98 10/18/18 16:15 Fall - MDM Narrative Medical decision making narrative: X-ray taken of the right hip, right femur, and right shoulder today for further evaluation. The shoulder x-ray does not show any fracture dislocation. The femur is normal. The hip shows intertrochanteric hip fracture. Spoke with Dr. Rhodes today who saw the patient here in the emergency department. Pt will be admitted to the [facility] floor here at [facility]. Dr. Cortez accepted to admit the patient. EKG shows A. fib with probable LVH. No acute abnormalities are seen. The EKG will be read by cardiology. She did receive a dose of morphine for pain control prior from leaving the emergency department. Patient was in stable condition and will be admitted. - Lab Data Lab results reviewed: Yes I reviewed the patient's lab results. Result diagrams: 10/18/18 13:34 10/18/18 13:34 Lab Results 10/18/18 10/18/18 10/18/18 Range/Units 13:34 13:34 13:34 WBC 9.8 (4.5-11.0) K/mcL RBC 4.38 (4.00-5.20) M/mcL Hgb 11.7 L (12.0-15.0) g/dL Hct 36.3 (36.0-48.0) % MCV 83.0 (80.0-100.0) fL MCH 26.8 (26.0-34.0) pg MCHC 32.3 (31.0-36.0) g/dL RDW 16.7 H (11.5-14.5) % Plt Count 244 (140-440) K/mcL MPV 11.1 H (7.4-10.4) fL Gran % 76.3 (38.0-78.0) % Lymph % (Auto) 8.9 L (15.5-49.0) % [place] % (Auto) 11.4 (1.0-12.0) % Eos % (Auto) 3.3 (0.0-7.0) % Baso % (Auto) 0.1 (0.0-2.0) % Gran # 7.5 (1.8-8.0) K/mcL Lymph # (Auto) 0.9 L (1.5-4.8) K/mcL [place] # (Auto) 1.1 H (0.1-0.9) K/mcL Eos # (Auto) 0.3 (0.0-0.7) K/mcL Baso # (Auto) 0 (0.0-0.3) K/mcL PT 20.7 H (11.9-14.5) sec INR 1.8 H (0.9-1.1) Sodium 143 (133-145) mmol/L Potassium 3.5 (3.3-5.1) mmol/L Chloride 106 (96-108) mmol/L Carbon Dioxide 23 (22-30) mmol/L Anion Gap 14.0 (8-16) BUN 25 H (8-23) mg/dl Creatinine 0.9 (0.6-1.1) mg/dl GFR Calculation 57 Glucose 113 H (70-105) mg/dL Calcium 8.8 (8.6-10.4) mg/dl Total Bilirubin 0.9 (0.0-1.0) mg/dL AST 36 (0-37) U/l ALT 23 (0-40) U/l Alkaline Phosphatase 82 (39-117) U/L Total Protein 6.5 (5.9-8.4) gm/dL Albumin 2.9 L (3.2-5.2) gm/dL Globulin 3.6 (2.2-3.7) gm/dL Albumin/Globulin Ratio 0.8 L (1.0-2.3) Urine Color Urine Appearance Urine pH (5.0-9.0) Ur Specific [place] (1.000-1.035) Urine Protein (NEG) mg/dL Urine Glucose (UA) (NEG) mg/dL Urine Ketones (NEG) mg/dL Urine Occult Blood (<0.03) mg/dL Urine Nitrate (NEG) Urine Bilirubin (NEG) mg/dL Urine Urobilinogen (NEG) mg/dL Ur Leukocyte Esterase (NEG) /uL Urine RBC (0-1) /hpf Urine WBC (0-4) /hpf Ur Squamous Epith Cells (0-4) /hpf Ur Transition Epith Cell (0-2) /hpf Calcium Oxalate Crystal (0) /hpf Amorphous Crystals (0) /hpf Urine Bacteria (0) /hpf Hyaline Casts (0-2) /lpf Urine Mucus (0) /hpf Ur Culture Indicated? 10/18/18 Range/Units 13:46 WBC (4.5-11.0) K/mcL RBC (4.00-5.20) M/mcL Hgb (12.0-15.0) g/dL Hct (36.0-48.0) % MCV (80.0-100.0) fL MCH (26.0-34.0) pg MCHC (31.0-36.0) g/dL RDW (11.5-14.5) % Plt Count (140-440) K/mcL MPV (7.4-10.4) fL Gran % (38.0-78.0) % Lymph % (Auto) (15.5-49.0) % [place] % (Auto) (1.0-12.0) % Eos % (Auto) (0.0-7.0) % Baso % (Auto) (0.0-2.0) % Gran # (1.8-8.0) K/mcL Lymph # (Auto) (1.5-4.8) K/mcL [place] # (Auto) (0.1-0.9) K/mcL Eos # (Auto) (0.0-0.7) K/mcL Baso # (Auto) (0.0-0.3) K/mcL PT (11.9-14.5) sec INR (0.9-1.1) Sodium (133-145) mmol/L Potassium (3.3-5.1) mmol/L Chloride (96-108) mmol/L Carbon Dioxide (22-30) mmol/L Anion Gap (8-16) BUN (8-23) mg/dl Creatinine (0.6-1.1) mg/dl GFR Calculation Glucose (70-105) mg/dL Calcium (8.6-10.4) mg/dl Total Bilirubin (0.0-1.0) mg/dL AST (0-37) U/l ALT (0-40) U/l Alkaline Phosphatase (39-117) U/L Total Protein (5.9-8.4) gm/dL Albumin (3.2-5.2) gm/dL Globulin (2.2-3.7) gm/dL Albumin/Globulin Ratio (1.0-2.3) Urine Color Yellow Urine Appearance Clear Urine pH 5.0 (5.0-9.0) Ur Specific [place] 1.019 (1.000-1.035) Urine Protein 30 A (NEG) mg/dL Urine Glucose (UA) Negative (NEG) mg/dL Urine Ketones Neg (NEG) mg/dL Urine Occult Blood Neg (<0.03) mg/dL Urine Nitrate Neg (NEG) Urine Bilirubin Neg (NEG) mg/dL Urine Urobilinogen Neg (NEG) mg/dL Ur Leukocyte Esterase Neg (NEG) /uL Urine RBC 9 H (0-1) /hpf Urine WBC 3 (0-4) /hpf Ur Squamous Epith Cells 1 (0-4) /hpf Ur Transition Epith Cell 1 (0-2) /hpf Calcium Oxalate Crystal Mod A (0) /hpf Amorphous Crystals Few A (0) /hpf Urine Bacteria 0 (0) /hpf Hyaline Casts 3 H (0-2) /lpf Urine Mucus Few (0) /hpf Ur Culture Indicated? No - Radiology Data Ordering Physician: Enrique Salmon Date of Service: 10/18/18 Procedure(s): XR shoulder comp RT min 2VW Accession Number(s): [id number] CLINICAL INFORMATION: Fall. Shoulder pain TECHNIQUE: AP internal and external rotation views, transscapular Y view COMPARISON: None. FINDINGS: Degenerative joint disease with narrowing of the glenohumeral joint. There is superior centering of the humeral head consistent with rotator cuff. No acute fracture. No glenohumeral dislocation. Scapula and clavicle are negative. There is degenerative disease at the acromioclavicular joint IMPRESSION: 1. No acute abnormality 2. 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 Hip pain. TECHNIQUE: AP pelvis and right hip COMPARISON: None. FINDINGS: Mildly displaced right intertrochanteric hip fracture. There is slight varus angulation. Pelvis is negative. No fracture. No lytic lesion. There is degenerative disease of the pubic symphysis. There is degenerative disease in the lower lumbar spine IMPRESSION: Intertrochanteric right hip fracture Interpreted and Authenticated by: Jerardo Adkins 10/18/18 Ordering Physician: Enrique Salmon Date of Service: 10/18/18 Procedure(s): XR femur ap & lat RT Accession Number(s): [id number] CLINICAL INFORMATION: Fall. Leg and hip pain TECHNIQUE: AP and lateral right femur COMPARISON: Right hip dated 10/18/2018 FINDINGS: Intertrochanteric right hip fracture with mild displacement and varus angulation. This was described in a separate report Previous right knee arthroplasty Examination is otherwise negative. Right femoral diaphysis is negative. There is no fracture. IMPRESSION: 1. Right hip fracture 2. Otherwise negative right femur Interpreted and Authenticated by: Jerardo Adkins 10/18/18 Disposition Pt seen by [facility] only: Yes Clinical Impression: Intertrochanteric fracture of right hip Disposition: Xfer As Inpt ([facility]) Condition: Fair
[2018-10-18] MEDS ORDERED: 0.9 % SODIUM CHLORIDE 1,000 ML IV SCH (14:00)
[2018-10-18 14:26] LABS: Basophils # (Auto) 0 K/mcL (0.0-0.3); Basophils % (Auto) 0.1 % (0.0-2.0); Eosinophils # (Auto) 0.3 K/mcL (0.0-0.7); Eosinophils % (Auto) 3.3 % (0.0-7.0); Granulocytes % (Auto) 76.3 % (38.0-78.0); Hematocrit 36.3 % (36.0-48.0); Hemoglobin 11.7 g/dL (12.0-15.0); Lymphocytes # (Auto) 0.9 K/mcL (1.5-4.8); Lymphocytes % (Auto) 8.9 % (15.5-49.0); Mean Corpuscular HGB Conc 32.3 g/dL (31.0-36.0); Mean Platelet Volume 11.1 fL (7.4-10.4); Monocytes # (Auto) 1.1 K/mcL (0.1-0.9); Monocytes % (Auto) 11.4 % (1.0-12.0); Platelet Count 244 K/mcL (140-440); RBC 4.38 M/mcL (4.00-5.20); Red Cell Distribution Width 16.7 % (11.5-14.5); WBC 9.8 K/mcL (4.5-11.0)
[2018-10-18 14:29] LABS: Appearance,Urine CLEAR; Bacteria,Urine 0 /hpf (0); Bilirubin,Urine NEG (NEG); Calcium Oxalate Crystals,Urine MOD /hpf (0); Color,Urine YELLOW; Culture Indicated,Urine NO; Glucose,Urine (UA) NEGATIVE (NEG); Ketones,Urine NEG (NEG); Leukocyte Esterase,Urine NEG /uL (NEG); Mucus,Urine FEW /hpf (0); Nitrate,Urine NEG (NEG); Protein,Urine 30 mg/dL (NEG); Specific Gravity,Urine 1.019 (1.000-1.035); Urine Amorphous Crystals FEW /hpf (0); Urine Blood NEG mg/dL (<0.03); Urine Hyaline Cast 3 /lpf (0-2); Urine RBC 9 /hpf (0-1); Urine Squamous Epithelial Cell 1 /hpf (0-4); Urine Transitional Epi Cells 1 /hpf (0-2); Urine WBC 3 /hpf (0-4); Urobilinogen,Urine NEG (NEG)
[2018-10-18 14:33] LABS: INR 1.8 (0.9-1.1); Prothrombin Time 20.7 sec (11.9-14.5)
[2018-10-18 14:39] LABS: ALT/SGPT 23 U/l (0-40); AST/SGOT 36 U/l (0-37); Albumin 2.9 gm/dL (3.2-5.2); Albumin/Globulin Ratio 0.8 (1.0-2.3); Alkaline Phosphatase 82 U/L (39-117); Bilirubin,Total 0.9 mg/dL (0.0-1.0); Blood Urea Nitrogen 25 mg/dl (8-23); Calcium 8.8 mg/dl (8.6-10.4); Carbon Dioxide 23 mmol/L (22-30); Chloride 106 mmol/L (96-108); Globulin 3.6 gm/dL (2.2-3.7); Glomerular Filtration Rate 57; Glucose 113 mg/dL (70-105); Potassium 3.5 mmol/L (3.3-5.1); Sodium 143 mmol/L (133-145)
--- NOTE | 2018-10-18 15:09 | Internal Med History&Physical ---
Medical - H&P: HPI Patient information: Note initiated : 10/18/18 at 3:04 pm Service Date, if different from initiated Date: [] Patient: Irma Francis 88 y/o F admitted on for Fall, Right Upper Leg Pain. Chief Complaint: [] History of present illness: Ms. Francis is a 88 year old F with advanced dementia, lives at home with care givers, at baseline able to ambulate with self, comes to the ER today brought in by her care givers for fall and pain on the right hip. The patient fell down yesterday at her house, injured the right side, she had some pain in the shoulder, rib and hip region. The patient went to sleep, but when this AM she was unable to ambulate, and complained of pain, the care providers decided to bring her to the ER for further evaluation. patient was recently discharged from this facility with diagnosis of pna, She is pleasantly demented , however unable to provide any meaningful history. Most history from care givers, who reported the patient was in the hospital a few days ago. She was doing well post discharge. She was treated for pneumonia. Patient is on Coumadin for atrial fibrillation, and has had no complaints recently. Patient has undergone an echocardiogram last year which shows normal ejection fraction but severe aortic stenosis and moderate pulmonary hypertension. Patient is ambulatory at baseline however her MET score would be less than 1 - 2. 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 Reviewed from previous record Medical - H&P: Meds Home Medications Medication Instructions Recorded Confirmed Type QUEtiapine [Seroquel] 12.5 mg PO BID #30 tab 02/20/18 10/18/18 Rx Furosemide [Lasix] 10 mg PO PRN PRN 04/22/18 10/18/18 History Warfarin [Coumadin] 3 mg PO TU@1400 10/12/18 10/18/18 History Warfarin [Coumadin] 4 mg PO SUMOWETHFRSA@1400 10/12/18 10/18/18 History Diltiazem [Cardizem] 120 mg PO Q8H #20 tab 10/13/18 10/18/18 Rx metroNIDAZOLE [Flagyl] 500 mg PO Q8 #15 tab 10/13/18 10/18/18 Rx Allergies Allergy/AdvReac Type Severity Reaction Status Date / Time No Known Drug Allergies Allergy Verified 04/22/18 17:01 Medical - H&P: Exam - Constitutional Vitals: Temp Pulse Resp BP Pulse Ox 97.9 F 43 L 18 133/77 98 10/18/18 11:52 10/18/18 14:01 10/18/18 11:52 10/18/18 14:01 10/18/18 14:01 Exam: GENERAL: The patient is athink frail individual, in no apparent distress. Is alert and oriented x1. VITAL SIGNS: Reviewed and as noted elsewhere. HEENT: Head is normocephalic and atraumatic. Extraocular muscles are intact. Pupils are equal, round, and reactive to light. Nares appeared normal. Mouth appears any without lesions. Mucous membranes are dry. NECK: Normal to inspection, Supple, No lymphadenopathy or thyromegaly. LUNGS: Air entry equal on both sides, no wheezing, crackles or rhonchi noted. No accessory muscles of respiration HEART: Regular rate and rhythm irregular , S1 and S2 heard, no Gallop, S3 or Rub Noted, systolic murmur aortic region, 5/6 ABDOMEN: Soft, nontender, and nondistended. Positive bowel sounds. No hepatosplenomegaly was noted. EXTREMITIES: No cyanosis, clubbing, rash, lesions or edema. NEUROLOGIC: Cranial nerves II through XII are grossly intact. Motor and Sensory System Grossly Intact (limited exam given lack of pt cooperation/ hip f racture) SKIN: No ulceration or wounds noted, No jaundice, No rash noted. Medical - H&P: Reslt - Labs CBC & Chem 7: 10/18/18 13:34 10/18/18 13:34 Labs: Short CBC 10/18/18 Range/Units 13:34 WBC 9.8 (4.5-11.0) K/mcL Hgb 11.7 L (12.0-15.0) g/dL Hct 36.3 (36.0-48.0) % Plt Count 244 (140-440) K/mcL BMP 10/18/18 13:34 Sodium 143 Potassium 3.5 Chloride 106 Carbon Dioxide 23 BUN 25 H Creatinine 0.9 Glucose 113 H Calcium 8.8 Liver Function 10/18/18 Range/Units 13:34 Total Bilirubin 0.9 (0.0-1.0) mg/dL AST 36 (0-37) U/l ALT 23 (0-40) U/l Alkaline Phosphatase 82 (39-117) U/L Albumin 2.9 L (3.2-5.2) gm/dL Urine 10/18/18 Range/Units 13:46 Urine Color Yellow Urine Appearance Clear Urine pH 5.0 (5.0-9.0) Ur Specific [place] 1.019 (1.000-1.035) Urine Protein 30 A (NEG) mg/dL Urine Glucose (UA) Negative (NEG) mg/dL Medical - H&P: A/P - Narrative A/P Narrative: A/P Intertrocantric Fracture -Management per ortho Pre Op risk Assestement -High risk given advanced age, -poor functional status -Dementia -Moderate pulm HTN and Severe -no modifiable risk factors at this time, ok to proceed with Surgery, given urgent need for surgery and no plausible intervention.(pending cxr) -EKG shows afib, non specific st wave changes, no acute concern -Chest X ray pending, Dementia -high risk for post op complication, monitor closely Atrial fibrillation -on coumadin with subtherapeutic INR, -rate control with cardizem -resume home meds post surgery DVT hep sq for now, coumadin post op FUll code (pending clarification) NPO diet for now.
--- NOTE | 2018-10-18 15:32 | XRay Report ---
INDICATION: Preoperative evaluation TECHNIQUE: AP chest x-ray,supine portable COMPARISON: Previous examination dated 10/13/2018 FINDINGS:Mild cardiomegaly, unchanged. Pulmonary vascularity is normal considering AP supine positioning. There is calcification of the mitral valve annulus. Focal left basilar consolidation. Appearance is consistent with left lower lobe pneumonia. There is slight blunting of left costophrenic angle and appearance consistent with small left pleural effusion. Right lung is negative. No parenchymal infiltrate or mass. IMPRESSION: 1. Left lower lobe infiltrate consistent with pneumonia 2. Mild cardiomegaly. No evidence for congestive heart failure Interpreted and Authenticated by: Jerardo Adkins 10/18/18
[2018-10-18] MEDS ORDERED: ceFAZolin 2 GM in DEXTROSE 5% IN WATER 50 ML IV SCH ×2 (15:45→18:53)
--- NOTE | 2018-10-18 16:10 | Consultation ---
DATE OF CONSULTATION: 10/18/2018 DATE OF CONSULTATION: 10/18/2018. REASON FOR CONSULTATION: Right hip fracture. CONSULTING PROVIDER: Enrique Snyder, ER provider, [facility]. HISTORY OF PRESENT ILLNESS: History is provided by her 2 caretakers, who report that she fell yesterday evening falling onto her right side as well as hitting her right shoulder, inability to ambulate, brought to the emergency department today for further evaluation and treatment. She was found to have an intertrochanteric hip fracture. Orthopedics was consulted. The patient has significant dementia and unable to provide any significant history and is all provided by the caretakers. Of note, she has been recently hospitalized, was discharged on 10/14 for urinary tract infection and aspiration pneumonia where she was being treated with Levaquin. Since that time has been afebrile and back to her baseline at home. She does have a dry nonproductive cough. PAST MEDICAL HISTORY: Significant for dementia, AFib which she is on anticoagulation with Coumadin. Hypertension, peripheral vascular disease. MEDICATIONS: As mentioned, Coumadin, Lasix, melatonin, and I think today or yesterday was her last dose of Levaquin. ALLERGIES: NO KNOWN DRUG ALLERGIES. FAMILY HISTORY: Noncontributory otherwise. PAST SURGICAL HISTORY: She has bilateral total knee arthroplasties. Cholecystectomy SOCIAL HISTORY: She resides with 2 caretakers and her son up in [place]. Never tobacco user. REVIEW OF SYSTEMS: Unable to get a clear review of system because of the patient's baseline dementia, but per caretakers other than mentioned in HPI, which has improved is negative. PHYSICAL EXAMINATION: GENERAL: The patient is resting comfortably in bed, sleeping with minimal interaction. VITAL SIGNS: Heart rate is 60, blood pressure 116/56 with 93% on room air. HEENT: Head appears atraumatic. EXTREMITIES: Bilateral upper extremities, she does not appear to have any tenderness to palpation throughout bilateral upper extremities. She has no crepitus throughout these extremities. There is no obvious deformity. She does have warm and well perfused extremities. The skin is intact; however, thin. Pelvis is stable. Left lower extremity, she has no pain with log roll of her hip. She has a well healed incision over the midline of the knee. There is no obvious deformity or crepitus about the extremity. Her foot is warm and well perfused. Right lower extremity, she has slightly shortened as well as externally rotated in flexed position of comfort. Did not perform any range of motion about the hip, but the knee is without tenderness. There is no obvious deformity about the remainder of the extremity and her foot is warm and well perfused. IMAGING: She has plain films of her pelvis, hip and femur, which demonstrates an intertrochanteric fracture with what appears to be lesser intact. There is significant osteopenia with with danielle C bone. Shoulder radiographs are negative for fracture. LABORATORY DATA: She has normal white count at 9.8, her hemoglobin is 11.7, hematocrit is 36.3, and platelet count is 244,000. Coags are pending. Chemistries are pending. ASSESSMENT AND PLAN: This is an 88-year-old female with baseline dementia with recent hospitalization for pneumonia as well as urinary tract infection with a right closed intertrochanteric hip fracture. I discussed the diagnosis with her 2 caretakers here today. Her son has the power of butadiene converter helper. I did discuss typical treatment options, which would be for operative fixation to allow for early mobilization and improved pain control overall. Given her overall situation, she does have increased risks associated with anesthesia given her baseline health status, but also from the recent pneumonia We will also follow up on the labs. The patient will be admitted by the hospitalist. Pending on labs and especially anesthesia, could potentially proceed with surgery later on this evening versus tomorrow. WICHO:in Job ID: [id number] Doc ID: [id number] Shaniqua KAUFMAN
[2018-10-18] MEDS ORDERED: ceFAZolin 1 GM VIAL ONE (16:22)
[2018-10-18] MEDS ORDERED: fentaNYL 100 MCG/2 ML VIAL IV ONE (16:37)
[2018-10-18] MEDS ORDERED: ePHEDrine 50 MG/ML AMPUL IV ONE (16:37)
[2018-10-18] MEDS ORDERED: LIDOCAINE HCL/PF 100 MG/5 ML SYRINGE IV ONE (16:37)
[2018-10-18] MEDS ORDERED: DEXAMETHASONE 10 MG/ML VIAL ONE (16:37)
[2018-10-18] MEDS ORDERED: SUCCINYLCHOLINE 20 MG/ML ML IV ONE (16:37)
[2018-10-18] MEDS ORDERED: MIDAZOLAM 2 MG/2 ML VIAL ONE (16:37)
[2018-10-18] MEDS ORDERED: PROPOFOL 200 MG/20 ML VIAL IV ONE (16:37)
[2018-10-18] MEDS ORDERED: KETAMINE 10 MG/ML ML ONE (16:37)
[2018-10-18] MEDS ORDERED: ONDANSETRON 4 MG/2 ML VIAL ONE (16:37)
[2018-10-18] MEDS ORDERED: LACTATED RINGERS 250 ML IV PRN ×2 (17:44→18:53)
[2018-10-18] MEDS ORDERED: fentaNYL 100 MCG/2 ML VIAL IV PRN ×2 (17:44→18:53)
[2018-10-18] MEDS ORDERED: FLUMAZENIL 0.1 MG/ML ML IV PRN ×2 (17:44→18:53)
[2018-10-18] MEDS ORDERED: NALOXONE HCL 0.4 MG/ML VIAL IV PRN ×3 (17:44→18:53)
[2018-10-18] MEDS ORDERED: ACETAMINOPHEN 1,000 MG/100 ML BOTTLE IV ONE (17:44)
[2018-10-18] MEDS ORDERED: ONDANSETRON 4 MG/2 ML VIAL IV PRN ×3 (17:44→18:53)
[2018-10-18] MEDS ORDERED: IPRATROPIUM/ALBUTEROL 3 ML AMPUL.NEB NEB PRN ×2 (17:44→18:53)
[2018-10-18] MEDS ORDERED: diphenhydrAMINE 50 MG/ML VIAL IV PRN ×2 (17:44→18:53)
[2018-10-18] MEDS ORDERED: PROMETHAZINE 25 MG/ML VIAL IV PRN ×2 (17:44→18:53)
[2018-10-18] MEDS ORDERED: BENZOCAINE/MENTHOL 1 LOZENGE PO PRN ×3 (17:44→18:53)
[2018-10-18] MEDS ORDERED: MEPERIDINE 25 MG/ML SYRINGE IV PRN ×2 (17:44→18:53)
[2018-10-18] MEDS ORDERED: LACTATED RINGERS 1,000 ML IV SCH ×2 (17:45→18:53)
--- NOTE | 2018-10-18 18:04 | XRay Report ---
CLINICAL INFORMATION: Right hip fracture TECHNIQUE: 1.7 minutes fluoroscopy utilized. Reduction and internal fixation of right intertrochanteric hip fracture with gamma nail and long femoral diaphyseal nail. Alignment on spot films is anatomic COMPARISON: Plain film examination dated 10/18/2018 IMPRESSION: Open reduction internal fixation utilizing intraoperative fluoroscopy Interpreted and Authenticated by: Jerardo Adkins 10/18/18
--- NOTE | 2018-10-18 18:06 | Brief Operative Note ---
Date of procedure: 10/18/18 Pre-op diagnosis: right intertrochanteric femur fracture Post-op diagnosis: same Procedure: operative fixation of right intertrochanteric femur fracture with IM nail Grafts/Implants: Yes (long gamma 13mm 400mm and 105 lag screw) Anesthesia: GETA Findings: reducible fracture Complications: none Surgeon: Shaniqua Rhodes Auto Clocks Repairer: Teddy Duke Estimated blood loss (cc): 50 Tourniquet Time (Minutes): 0 Specimens Removed/Pathology: none sent Condition: stable Disposition: PACU
[2018-10-18] MEDS ORDERED: traZODone HCL 50 MG TABLET PO PRN (18:53)
[2018-10-18] MEDS ORDERED: FLEETS ADULT ENEMA PR PRN (18:53)
[2018-10-18] MEDS ORDERED: ALBUTEROL SULFATE 2.5 MG/3 ML NEBULIZER NEB PRN (18:53)
[2018-10-18] MEDS ORDERED: ACETAMINOPHEN 325 MG TABLET PO PRN (18:53)
[2018-10-18] MEDS ORDERED: ACETAMINOPHEN 650 MG/65 ML BOTTLE IV PRN (18:53)
[2018-10-18] MEDS ORDERED: MAGNESIUM HYDROXIDE 30 ML ORAL.SUSP PO PRN (18:53)
[2018-10-18] MEDS ORDERED: ZOLPIDEM 5 MG TABLET PO PRN (18:53)
[2018-10-18] MEDS: HYDROmorphone 2 MG/ML VIAL IV PRN ×2 (20:13→23:52)
--- NOTE | 2018-10-18 20:28 | Emergency Department Note ---
ED Note Addendum Note Addendum: I discussed this case with the mid-level provider and agree with the assessment and plan.
[2018-10-18] MEDS: DOCUSATE SODIUM 100 MG CAPSULE PO SCH (21:00)
[2018-10-18] MEDS: SENNOSIDES 1 TABLET PO SCH (21:00)
[2018-10-18] MEDS: THIAMINE 100 MG TABLET PO SCH (21:00)
[2018-10-18] MEDS: HEPARIN 5,000 UNIT/ML VIAL SQ SCH (21:00)
[2018-10-18] MEDS: 0.9 % SODIUM CHLORIDE 10 ML SYRINGE IV SCH (21:01)
[2018-10-18] MEDS: ceFAZolin 1 GM VIAL IV SCH (23:52)
[2018-10-19] MEDS: ACETAMINOPHEN 1,000 MG/100 ML BOTTLE IV SCH ×3 (01:29→17:10)
[2018-10-19] MEDS: 0.9 % SODIUM CHLORIDE 10 ML SYRINGE IV SCH ×3 (07:35→22:00)
[2018-10-19 08:36] LABS: Hematocrit 33.7 % (36.0-48.0); Hemoglobin 10.9 g/dL (12.0-15.0)
--- NOTE | 2018-10-19 08:50 | Operative Note ---
DATE OF OPERATION: 10/18/2018 PREOPERATIVE DIAGNOSIS: Right intertrochanteric femur fracture. POSTOPERATIVE DIAGNOSIS: Right intertrochanteric femur fracture. PROCEDURE PERFORMED: Operative fixation of right intertrochanteric femur fracture with internal cephomedullary device. SURGEON: Shaniqua Rhodes M.D. AUTOMOTIVE SERVICE PROFESSIONAL: Teddy Duke PA-C. The PA's assistance was required for the safe and efficient completion of the entire case. This provider's expertise and technical skill were required throughout the case. The PA assisted with preoperative coordination, intraoperative retraction, wound closure, dressing and splint application, as well as postoperative documentation and care coordination. ANESTHESIA: General anesthesia. ESTIMATED BLOOD LOSS: 50 mL. IV FLUIDS: 1 liter lactated Ringer's. ANTIBIOTICS: 2 grams Ancef. IMPLANTS: Long Gamma nail, 400 mm in length, 15 mm diameter with a 105 mm lag screw and one distal 5mm interlocked screw. PATHOLOGY/LAB: None. INTRAOPERATIVE COMPLICATIONS: None apparent. INDICATIONS FOR PROCEDURE: The patient is an 88-year-old female with multiple medical issues to include dementia, cardiac, aortic valve stenosis with recent aspiration pneumonia and urinary tract infection who fell yesterday at home and sustained an intertrochanteric femur fracture. I discussed treatment options with the caretakers as well as the son with recommendation for operative fixation to improve mobility. However, these are not without risk as there is significant risk with her at her baseline comorbidities, but an increased risk associated with her recent pneumonia and infection and hospitalization. They do understand these risks and do wish to proceed with surgery. I did discuss the morbidity and mortality associated with fracture in the elderly population. OPERATIVE FINDINGS: Fracture was able to be reduced under fluoroscopy prior to intramedullary nail fixation. DESCRIPTION OF PROCEDURE: The patient was met in the preoperative holding area. The site was verified and marked with the patient's family input. She was taken back to the operating room where she underwent successful anesthesia via endotracheal tube. She was transferred to the [place] table with her perineal posterolaterally padded. She had her left lower extremity sequential compression device in place and placed in traction and slight internal rotation. We reduced the intertrochanteric femur fracture. This was viewed under fluoroscopy. Verified we could get an AP and lateral for the remainder of the case. Fracture was reduced to near anatomic alignment. The left lower extremity was placed in the down and slightly adducted position to improve our lateral visualization for distal interlock screw. The leg was then prepped and draped in the usual sterile fashion with ChloraPrep. A surgical timeout was performed to verify patient identity, correct procedure being performed, correct extremity being operated on. Everybody was in agreement. Utilizing the large C-arm and guidepin placed at the tip of the greater trochanter at the anterior and middle one-third junction viewed on both AP and lateral, the guidepin was placed and again visualized to be intramedullary on AP and lateral. The skin was sharply incised over this, including the tensor fascia lavonne. A soft tissue protector guide was placed and the entry reamer was utilized to gain entry into the intramedullary canal. The guide pin was removed and a long ball-tip guidewire was placed down to the center of the knee on the AP and the lateral. This was measured to be 410 mm which I measured. I elected to use a 400 mm as sizes are 400 and 420. On preoperative radiographs, she had a stovepipe femur. However, I did pass a 14.5 mm reamer down the canal to ensure there was no difficulty with passing the nail. This was passed with relative ease. At this point, the nail was placed and visualized underneath the large C-arm and to ensure our lag screw was in the inferior portion of the femoral neck. At this point, we placed the guide. We created an additional incision over the lateral femur. We drilled the outer cortex and then placed our guide pin along the inferior half of the femoral neck on the AP and central position on the lateral. This was kept subchondral. This was measured 105 mm. I placed an antirotational guide pin proximal while overdrilling and placed a lag screw in standard fashion. The locking screw was placed. All guides were removed. Final radiographs of the fracture reduced revealed a near anatomic alignment. The screw was subchondral both on the AP and lateral in a well-positioned manner. At this point, I moved to the distal femur. We got a perfect lateral of the interlocks distally. We placed our interlock screw via perfect [place] technique. Once completed, AP and lateral radiographs verified that the screw was in good overall position. The incisions were copiously irrigated. The fascia was closed with 0 Vicryl, subcutaneous tissue closed with 3-0 Vicryl, and skin closed with florinda. The smaller incisions were closed in layered fashion in the same format. Leg was cleaned and dried. Xeroform, fluffs, and Medipore tape were applied. The patient was awoke from anesthesia and transferred to the PACU in stable condition. PLAN: The patient will be readmitted back to the hospital for postoperative recovery. She can be partial to 50% weightbearing with a walker. DLW:radu Job ID: [id number] Doc ID: [id number] Shaniqua KAUFMAN
[2018-10-19 09:25] LABS: INR 2.3 (0.9-1.1); Prothrombin Time 24.8 sec (11.9-14.5)
[2018-10-19] MEDS: DOCUSATE SODIUM 100 MG CAPSULE PO SCH ×2 (09:36→21:59)
[2018-10-19] MEDS: ceFAZolin 1 GM VIAL IV SCH (09:36)
[2018-10-19] MEDS: HEPARIN 5,000 UNIT/ML VIAL SQ SCH (09:36)
[2018-10-19] MEDS: DEXTROSE 5%-1/2NS W/20MEQ KCL 1,000 ML IV SCH (12:22)
--- NOTE | 2018-10-19 12:24 | Internal Med Progress Note ---
Medical - PN: Subj Patient information: Note initiated : 10/19/18 at 12:22 pm Service Date, if different from initiated Date: [] Patient: Irma Francis 88 y/o F admitted on 10/18/18 for Fall, Right Upper Leg Pain. Chief Complaint: [] Interval history: Ms. Francis is a 88 year old F with advanced dementia, lives at home with care givers, at baseline able to ambulate with self, comes to the ER today brought in by her care givers for fall and pain on the right hip. The patient fell down yesterday at her house, injured the right side, she had some pain in the shoulder, rib and hip region. The patient went to sleep, but when this AM she was unable to ambulate, and complained of pain, the care providers decided to bring her to the ER for further evaluation. patient was recently discharged from this facility with diagnosis of pna, She is pleasantly demented , however unable to provide any meaningful history. Most history from care givers, who reported the patient was in the hospital a few days ago. She was doing well post discharge. She was treated for pneumonia. Patient is on Coumadin for atrial fibrillation, and has had no complaints recently. Patient has undergone an echocardiogram last year which shows normal ejection fraction but severe aortic stenosis and moderate pulmonary hypertension. Patient is ambulatory at baseline however her MET score would be less than 1 - 2.' 10/19 Patient seen and examined, status post surgery, no obvious issues postop. Comfortable in bed, drowsy after pain medications. Is able to tolerate p.o. this morning Plan of care reviewed with her sons Pertinent ROS: unable - Constitutional Vitals: Vital Signs Temp Pulse Resp BP Pulse Ox 97.8 F 92 H 12 129/73 95 10/19/18 12:00 10/19/18 12:00 10/19/18 12:00 10/19/18 12:00 10/19/18 12:00 Period Temp Pulse Resp BP Sys/Benavidez Pulse Ox Last 24 Hr 97.1 F-98.2 F 43-98 04-08 87-144/52-89 90-98 Intake and Output 10/18/18 10/19/18 10/19/18 21:59 05:59 13:59 Intake Total 2170 100 220 Output Total 500 350 Balance 1670 -250 220 Weight 137 lb 8 oz 137 lb 8 oz Patient Weight 10/20/18 05:59 Weight 137 lb 8 oz Intake & Output: Intake & Output 10/18/18 10/19/18 10/19/18 21:59 05:59 13:59 Intake Total 2170 100 220 Output Total 500 350 Balance 1670 -250 220 Weight 137 lb 8 oz 137 lb 8 oz Intake: IV 1150 100 100 Ancef 2 gm In Dextrose 5% in 50 Water 50 ml @ 100 mls/hr IV PREOP [facility] Rx#:[id number] Oral 120 IV - Manual Only 1020 Output: Urine Catheter Amount 450 350 Estimated Blood Loss 50 Other: Meal Breakfast Percent of Meal Consumed 50% Urine Appearance Clear Clear Clear Urine Color Dark Gabi Light Gabi Light Gabi Exam: Constitutional; Afebrile, cooperative, sleeping not in distress. Eyes- No icterus, , No periorbital swelling Respiratory system: Air Entry equal on both sides, No crackles or wheezing, no rhonchi. CVS- Rate rhythm regular, S1,S2 heard, no gallop, no rub. systolic murmur Abdomen- Soft nontender abdomen, no organomegaly, no tenderness, no guarding or rigidity, [employer]RO[employer] SECRETARY- AOOx1, moving all extremities, no gross focal deficit noted. Medical - PN: Obj Da - Labs CBC & Chem 7: 10/19/18 05:11 10/18/18 13:34 Labs: Abnormal Lab Results 10/19/18 10/19/18 10/18/18 09:33 05:11 13:46 Hgb 10.9 L Hct 33.7 L RDW MPV Lymph % (Auto) Lymph # (Auto) [place] # (Auto) PT 24.8 H INR 2.3 H BUN Glucose Albumin Albumin/Globulin Ratio Urine Protein 30 A Urine RBC 9 H Calcium Oxalate Crystal Mod A Amorphous Crystals Few A Hyaline Casts 3 H 10/18/18 10/18/18 10/18/18 13:34 13:34 13:34 Hgb 11.7 L Hct RDW 16.7 H MPV 11.1 H Lymph % (Auto) 8.9 L Lymph # (Auto) 0.9 L [place] # (Auto) 1.1 H PT 20.7 H INR 1.8 H BUN 25 H Glucose 113 H Albumin 2.9 L Albumin/Globulin Ratio 0.8 L Urine Protein Urine RBC Calcium Oxalate Crystal Amorphous Crystals Hyaline Casts Meds: Medications Acetaminophen (Tylenol) 650 mg PO Q6HP PRN PRN Reason: PAIN/FEVER > 101 Albuterol Sulfate (Ventolin) 2.5 mg NEB Q2HP PRN PRN Reason: Shortness Of Breath Docusate Sodium (Colace) 100 mg PO BID [facility] Last Admin: 10/19/18 09:36 Dose: 100 mg Documented by: Hydromorphone HCl (Dilaudid) 0.5 mg IV Q2HP PRN PRN Reason: PAIN LEVEL > 6 Last Admin: 10/18/18 23:52 Dose: 0.5 mg Documented by: Acetaminophen (Ofirmev) 650 mg in 65 mls @ 130 mls/hr IV Q6HP PRN PRN Reason: PAIN/FEVER > 101 Acetaminophen (Ofirmev) 1,000 mg in 100 mls @ 200 mls/hr IV Q8H [facility] Last Infusion: 10/19/18 10:18 Dose: Infused Documented by: Potassium Chloride/Dextrose/Sod Cl (Dextrose 5%-1/2ns W/20meq Kcl) 1,000 mls @ 75 mls/hr IV .[id number] [facility] Stop: 10/20/18 14:54 Magnesium Hydroxide (Milk Of Magnesia) 30 ml PO DAILYP PRN PRN Reason: Constipation Naloxone HCl (Narcan) 0.1 mg IV Q2MIN PRN PRN Reason: Opiate Reversal Ondansetron HCl (Zofran) 4 mg IV Q6HP PRN PRN Reason: Nausea And Vomiting Oxycodone HCl (Roxicodone) 5 mg PO Q4HP PRN PRN Reason: PAIN LEVEL 3-6 Senna (Senokot) 2 tab PO [facility] Last Admin: 10/18/18 21:00 Dose: Not Given Documented by: Sodium Biphosphate/Sodium Phosphate (Fleets Adult) 1 dose [place] Q3-4DAYS PRN PRN Reason: Constipation Sodium Chloride (Saline Flush) 10 ml IV Q8 [facility] Last Admin: 10/19/18 07:35 Dose: 10 ml Documented by: Thiamine HCl (Vitamin B1) 100 mg PO [facility] Last Admin: 10/18/18 21:00 Dose: Not Given Documented by: Throat Lozenges (Cepacol) 1 lozenge PO PRN PRN PRN Reason: Sore Throat Trazodone HCl (Desyrel) 50 mg PO HSP PRN PRN Reason: Insomnia Warfarin Sodium (Coumadin Per Pharmacy) 1 order PO UD GIOVANNI Warfarin Sodium (Coumadin) 4 mg PO ONCE@1400 ONE Stop: 10/19/18 14:01 Zolpidem Tartrate (Ambien) 5 mg PO HSP PRN PRN Reason: Insomnia Medical - PN: A/P - Time Spent With Patient Total time spent is greater than 50% in coordination of care (as documented) at patient's floor/unit and/or counseling patient: - Narrative A/P Narrative: A/P Intertrocantric Fracture -Management per ortho Pre Op risk Assestement -High risk given advanced age, Dementia -high risk for post op complication, monitor closely Atrial fibrillation -on coumadin with therapeutic INR -rate control with cardizem, resumed - DVT , coumadin post op/ coumadin management per pharmacy Dysphagia diet. Medical - PN: Qual - VTE Deep Vein Thrombosis/Pulmonary Embolism Present on Admission: No
[2018-10-19] MEDS: HYDROmorphone 2 MG/ML VIAL IV PRN ×2 (12:30→16:07)
[2018-10-19] MEDS: DILTIAZEM 30 MG TABLET PO SCH ×2 (13:44→21:59)
--- NOTE | 2018-10-19 13:53 | Orthopedic Progress Note ---
Subjective Patient information: Note initiated : 10/19/18 at 1:50 pm Service Date, if different from initiated Date: [] Patient: Irma Francis 88 y/o F admitted on 10/18/18 for Fall, Right Upper Leg Pain. Chief Complaint: [] Interval history: No acute issues overnight. Has been out of bed and transferred with therapy. Per son's is eating ok. Seems to be comfortable. Objective Vital signs: Vital Signs Temp Pulse Pulse Resp BP BP Pulse Ox 10/19/18 12:00 97.8 F 92 H 12 129/73 95 10/19/18 09:41 97.2 F 10/19/18 08:00 98 H 12 95 10/19/18 07:19 97.2 F 98 H 12 120/68 95 10/19/18 03:56 97.5 F 75 16 99/58 97 10/19/18 00:00 97.1 F 64 16 110/65 93 10/18/18 20:00 64 16 118/67 93 10/18/18 19:50 68 118/67 90 10/18/18 19:35 66 117/67 93 10/18/18 19:20 70 109/62 94 10/18/18 19:05 74 106/59 95 10/18/18 18:50 98.2 F 66 110/64 94 10/18/18 18:45 98.0 F 75 18 108/61 92 10/18/18 18:40 97.2 F 70 14 96/55 96 10/18/18 18:27 68 18 98/52 95 10/18/18 18:12 97.3 F 69 15 87/53 96 10/18/18 18:07 75 15 93/53 95 10/18/18 18:02 70 19 88/59 93 10/18/18 17:57 97.4 F 75 18 112/60 97 10/18/18 16:15 97.9 F 43 L 18 144/89 98 10/18/18 16:01 144/89 10/18/18 15:01 125/69 10/18/18 14:01 43 L 133/77 98 Intake and Output 10/18/18 10/19/18 10/19/18 21:59 05:59 13:59 Intake Total 2170 100 220 Output Total 500 350 Balance 1670 -250 220 Intake: IV 1150 100 100 Ancef 2 gm In Dextrose 5% in 50 Water 50 ml @ 100 mls/hr IV PREOP GIOVANNI Rx#:[id number] Oral 120 IV - Manual Only 1020 Output: Urine Catheter Amount 450 350 Estimated Blood Loss 50 Other: Meal Breakfast Percent of Meal Consumed 50% Urine Appearance Clear Clear Clear Urine Color Dark Gabi Light Gabi Light Gabi Weight 137 lb 8 oz 137 lb 8 oz Patient Weight 10/20/18 05:59 Weight 137 lb 8 oz Intake & Output: Intake & Output 10/18/18 10/19/18 10/19/18 21:59 05:59 13:59 Intake Total 2170 100 220 Output Total 500 350 Balance 1670 -250 220 Weight 137 lb 8 oz 137 lb 8 oz Intake: IV 1150 100 100 Ancef 2 gm In Dextrose 5% in 50 Water 50 ml @ 100 mls/hr IV PREOP GIOVANNI Rx#:[id number] Oral 120 IV - Manual Only 1020 Output: Urine Catheter Amount 450 350 Estimated Blood Loss 50 Other: Meal Breakfast Percent of Meal Consumed 50% Urine Appearance Clear Clear Clear Urine Color Dark Gabi Light Gabi Light Gabi Dressing: Yes clean, Yes dry, Yes intact Weight bearing status: partial Additional Comments: foot warm well perfused. - Labs CBC & BMP: 10/19/18 05:11 10/18/18 13:34 Labs: Orthopedic Labs 10/19/18 10/18/18 09:33 13:34 PT 24.8 H 20.7 H INR 2.3 H 1.8 H 10/19/18 10/18/18 05:11 13:34 Hgb 10.9 L 11.7 L Hct 33.7 L 36.3 Assessment and Plan (1) Intertrochanteric fracture of right hip POD 1 s/p IM cephomedullary nail for Right intertrochanteric hip fracture --- Weight bearing with walker ------PT/OT ------non narcotic pain medication as best as possible -- SCDs, coumadin, mobilization -- Dispo: pending how she does as she does have caretakers that live with her but will see. May need more of a alf facility environment. Status: Acute
[2018-10-19] MEDS ORDERED: WARFARIN 4 MG TABLET PO ONE (14:00)
[2018-10-19] MEDS: oxyCODONE HCL 5 MG TABLET PO PRN (21:58)
[2018-10-19] MEDS: QUEtiapine 25 MG TABLET PO SCH (21:59)
[2018-10-19] MEDS: THIAMINE 100 MG TABLET PO SCH (21:59)
[2018-10-19] MEDS: SENNOSIDES 1 TABLET PO SCH (21:59)
[2018-10-20] MEDS: DEXTROSE 5%-1/2NS W/20MEQ KCL 1,000 ML IV SCH (01:55)
[2018-10-20] MEDS: ACETAMINOPHEN 1,000 MG/100 ML BOTTLE IV SCH ×3 (02:20→17:59)
[2018-10-20] MEDS: 0.9 % SODIUM CHLORIDE 10 ML SYRINGE IV SCH ×3 (05:33→22:14)
[2018-10-20] MEDS: DILTIAZEM 30 MG TABLET PO SCH (05:34)
[2018-10-20 06:21] LABS: INR 4.2 (0.9-1.1); Prothrombin Time 39.6 sec (11.9-14.5)
--- NOTE | 2018-10-20 07:31 | Orthopedic Progress Note ---
Subjective Patient information: Note initiated : 10/20/18 at 7:29 am Service Date, if different from initiated Date: [] Patient: Irma Francis 88 y/o F admitted on 10/18/18 for Fall, Right Upper Leg Pain. Chief Complaint: [] Interval history: No acute events overnight. Resting comfortable this AM Objective Vital signs: Vital Signs Temp Pulse Resp BP Pulse Ox 10/20/18 06:46 97.2 F 50 L 14 100/58 96 10/20/18 03:18 97.1 F 42 L 16 91/55 96 10/19/18 23:12 98.8 F 60 14 115/54 96 10/19/18 20:00 97 10/19/18 19:04 98.4 F 57 L 14 121/64 97 10/19/18 15:53 97.2 F 95 H 14 103/76 92 10/19/18 12:00 97.8 F 92 H 12 129/73 95 10/19/18 09:41 97.2 F 10/19/18 08:00 98 H 12 95 Intake and Output 10/19/18 10/20/18 10/20/18 21:59 05:59 13:59 Intake Total 515 1100 743 Output Total 350 225 Balance 165 875 743 Intake: IV 100 1100 743 Dextrose 5%-1/2Ns W/20Meq KCl 1 1000 ,000 ml @ 75 mls/hr IV .[id number] [facility] Rx#:[id number] Oral 295 0 GI Tube Flush 120 Output: Urine Catheter Amount 350 Void Amount 225 Other: Meal Dinner Percent of Meal Consumed 100% Urine Appearance Clear Urine Color Dark Yellow Urine Odor Strong Weight 136 lb 8 oz Intake & Output: Intake & Output 10/19/18 10/20/18 10/20/18 21:59 05:59 13:59 Intake Total 515 1100 743 Output Total 350 225 Balance 165 875 743 Weight 136 lb 8 oz Intake: IV 100 1100 743 Dextrose 5%-1/2Ns W/20Meq KCl 1 1000 ,000 ml @ 75 mls/hr IV .[id number] GIOVANNI Rx#:[id number] Oral 295 0 GI Tube Flush 120 Output: Urine Catheter Amount 350 Void Amount 225 Other: Meal Dinner Percent of Meal Consumed 100% Urine Appearance Clear Urine Color Dark Yellow Urine Odor Strong Dressing: Yes clean, Yes dry, Yes intact Weight bearing status: partial Extremities exam IM: Yes Foot pink and warm - Labs CBC & BMP: 10/19/18 05:11 10/18/18 13:34 Labs: Orthopedic Labs 10/20/18 10/19/18 10/18/18 03:39 09:33 13:34 PT 39.6 H 24.8 H 20.7 H INR 4.2 H 2.3 H 1.8 H 10/19/18 10/18/18 05:11 13:34 Hgb 10.9 L 11.7 L Hct 33.7 L 36.3 Assessment and Plan (1) Intertrochanteric fracture of right hip POD 2 s/p IM cephomedullary nail for Right intertrochanteric hip fracture --- Weight bearing to tolerance with walker ------PT/OT ------non narcotic pain medication as best as possible- transition to all oral meds. -- SCDs, coumadin, mobilization -- Dispo: Will benefit from SNF placement for a period of time prior to transitioning to home. Status: Acute
[2018-10-20] MEDS: QUEtiapine 25 MG TABLET PO SCH ×2 (10:16→19:57)
[2018-10-20] MEDS: DOCUSATE SODIUM 50 MG/5 ML ORAL.SOL PO SCH ×2 (10:17→19:57)
[2018-10-20] MEDS: DOCUSATE SODIUM 100 MG CAPSULE PO SCH (10:51)
--- NOTE | 2018-10-20 11:15 | Internal Med Progress Note ---
Medical - PN: Subj Patient information: Note initiated : 10/20/18 at 11:12 am Service Date, if different from initiated Date: [] Patient: Irma Francis 88 y/o F admitted on 10/18/18 for Fall, Right Upper Leg Pain. Chief Complaint: [] Interval history: Ms. Francis is a 88 year old F with advanced dementia, lives at home with care givers, at baseline able to ambulate with self, comes to the ER today brought in by her care givers for fall and pain on the right hip. The patient fell down yesterday at her house, injured the right side, she had some pain in the shoulder, rib and hip region. The patient went to sleep, but when this AM she was unable to ambulate, and complained of pain, the care providers decided to bring her to the ER for further evaluation. patient was recently discharged from this facility with diagnosis of pna, She is pleasantly demented , however unable to provide any meaningful history. Most history from care givers, who reported the patient was in the hospital a few days ago. She was doing well post discharge. She was treated for pneumonia. Patient is on Coumadin for atrial fibrillation, and has had no complaints recently. Patient has undergone an echocardiogram last year which shows normal ejection fraction but severe aortic stenosis and moderate pulmonary hypertension. Patient is ambulatory at baseline however her MET score would be less than 1 - 2.' 10/19 Patient seen and examined, status post surgery, no obvious issues postop. Comfortable in bed, drowsy after pain medications. Is able to tolerate p.o. this morning Plan of care reviewed with her sons 10/20 Patient seen and examined, doing well postop, home medications were resumed I think the patient became bradycardic after the resumption of Cardizem blood pressure was also a bit soft this morning. That has been held now Patient is tolerating p.o. diet with the help of assistance mental status does not get back to baseline Labs are stable Anticipate discharge to halfway tomorrow Pertinent ROS: unable - Constitutional Vitals: Vital Signs Temp Pulse Resp BP Pulse Ox 97.2 F 50 L 14 100/58 96 10/20/18 06:46 10/20/18 06:46 10/20/18 06:46 10/20/18 06:46 10/20/18 06:46 Period Temp Pulse Resp BP Sys/Benavidez Pulse Ox Last 24 Hr 97.1 F-98.8 F 42-95 12-16 91-129/54-76 92-97 Intake and Output 10/19/18 10/20/18 10/20/18 21:59 05:59 13:59 Intake Total 515 1100 843 Output Total 350 225 Balance 165 875 843 Weight 136 lb 8 oz Intake & Output: Intake & Output 10/19/18 10/20/18 10/20/18 21:59 05:59 13:59 Intake Total 515 1100 843 Output Total 350 225 Balance 165 875 843 Weight 136 lb 8 oz Intake: IV 100 1100 743 Dextrose 5%-1/2Ns W/20Meq KCl 1 1000 ,000 ml @ 75 mls/hr IV .[id number] GIOVANNI Rx#:[id number] Oral 295 0 100 GI Tube Flush 120 Output: Urine Catheter Amount 350 Void Amount 225 Other: Meal Dinner Breakfast Percent of Meal Consumed 100% 75% Urine Appearance Clear Urine Color Dark Yellow Urine Odor Strong Exam: Constitutional; Afebrile, cooperative, drowsy not in distress. Respiratory system: Air Entry equal on both sides, No crackles or wheezing, no rhonchi. CVS- Rate rhythm regular, S1,S2 heard, no gallop, no rub. Abdomen- Soft nontender abdomen, no organomegaly, no tenderness, no guarding or rigidity, [employer] ATTENDANT- AOOx1, moving all extremities, no gross focal deficit noted. Medical - PN: Obj Da - Labs CBC & Chem 7: 10/19/18 05:11 10/18/18 13:34 Labs: Abnormal Lab Results 10/20/18 10/19/18 10/19/18 03:39 09:33 05:11 Hgb 10.9 L Hct 33.7 L RDW MPV Lymph % (Auto) Lymph # (Auto) [place] # (Auto) PT 39.6 H 24.8 H INR 4.2 H 2.3 H BUN Glucose Albumin Albumin/Globulin Ratio Urine Protein Urine RBC Calcium Oxalate Crystal Amorphous Crystals Hyaline Casts 10/18/18 10/18/18 10/18/18 13:46 13:34 13:34 Hgb Hct RDW MPV Lymph % (Auto) Lymph # (Auto) [place] # (Auto) PT 20.7 H INR 1.8 H BUN 25 H Glucose 113 H Albumin 2.9 L Albumin/Globulin Ratio 0.8 L Urine Protein 30 A Urine RBC 9 H Calcium Oxalate Crystal Mod A Amorphous Crystals Few A Hyaline Casts 3 H 10/18/18 13:34 Hgb 11.7 L Hct RDW 16.7 H MPV 11.1 H Lymph % (Auto) 8.9 L Lymph # (Auto) 0.9 L [place] # (Auto) 1.1 H PT INR BUN Glucose Albumin Albumin/Globulin Ratio Urine Protein Urine RBC Calcium Oxalate Crystal Amorphous Crystals Hyaline Casts Meds: Medications Acetaminophen (Tylenol) 650 mg PO Q6HP PRN PRN Reason: PAIN/FEVER > 101 Albuterol Sulfate (Ventolin) 2.5 mg NEB Q2HP PRN PRN Reason: Shortness Of Breath Docusate Sodium (Colace) 100 mg PO BID [facility] Last Admin: 10/20/18 10:17 Dose: Not Given Documented by: Hydromorphone HCl (Dilaudid) 0.5 mg IV Q2HP PRN PRN Reason: PAIN LEVEL > 6 Last Admin: 10/19/18 16:07 Dose: 0.5 mg Documented by: Acetaminophen (Ofirmev) 650 mg in 65 mls @ 130 mls/hr IV Q6HP PRN PRN Reason: PAIN/FEVER > 101 Acetaminophen (Ofirmev) 1,000 mg in 100 mls @ 200 mls/hr IV Q8H [facility] Last Admin: 10/20/18 10:13 Dose: 200 mls/hr Documented by: Potassium Chloride/Dextrose/Sod Cl (Dextrose 5%-1/2ns W/20meq Kcl) 1,000 mls @ 75 mls/hr IV .[id number] [facility] Stop: 10/20/18 14:54 Last Admin: 10/20/18 01:55 Dose: 75 mls/hr Documented by: Magnesium Hydroxide (Milk Of Magnesia) 30 ml PO DAILYP PRN PRN Reason: Constipation Naloxone HCl (Narcan) 0.1 mg IV Q2MIN PRN PRN Reason: Opiate Reversal Ondansetron HCl (Zofran) 4 mg IV Q6HP PRN PRN Reason: Nausea And Vomiting Oxycodone HCl (Roxicodone) 5 mg PO Q4HP PRN PRN Reason: PAIN LEVEL 3-6 Last Admin: 10/19/18 21:58 Dose: 5 mg Documented by: Quetiapine Fumarate (Seroquel) 12.5 mg PO BID [facility] Last Admin: 10/20/18 10:16 Dose: Not Given Documented by: Zohaib (Senokot) 2 tab PO [facility] Last Admin: 10/19/18 21:59 Dose: 2 tab Documented by: Sodium Biphosphate/Sodium Phosphate (Fleets Adult) 1 dose AK Q3-4DAYS PRN PRN Reason: Constipation Sodium Chloride (Saline Flush) 10 ml IV Q8 [facility] Last Admin: 10/20/18 05:33 Dose: 10 ml Documented by: Thiamine HCl (Vitamin B1) 100 mg PO [facility] Last Admin: 10/19/18 21:59 Dose: 100 mg Documented by: Throat Lozenges (Cepacol) 1 lozenge PO PRN PRN PRN Reason: Sore Throat Trazodone HCl (Desyrel) 50 mg PO HSP PRN PRN Reason: Insomnia Warfarin Sodium (Coumadin Per Pharmacy) 1 order PO [facility] Zolpidem Tartrate (Ambien) 5 mg PO HSP PRN PRN Reason: Insomnia Last Admin: 10/19/18 21:59 Dose: 5 mg Documented by: Medical - PN: A/P - Time Spent With Patient Total time spent is greater than 50% in coordination of care (as documented) at patient's floor/unit and/or counseling patient: - Narrative A/P Narrative: A/P Intertrocantric Fracture -Management per ortho Pre Op risk Assestement -High risk given advanced age, -stable so far Dysphagia -assisted feeding. Dementia -high risk for post op complication, monitor closely Atrial fibrillation -on coumadin with therapeutic INR -rate was bradycardic with 120q8 of cardizem, will likely need to e cut down DVT , coumadin post op/ coumadin management per pharmacy (INR was high, will monitor) Dysphagia diet. Medical - PN: Qual - VTE Deep Vein Thrombosis/Pulmonary Embolism Present on Admission: No
[2018-10-20] MEDS: oxyCODONE HCL 5 MG TABLET PO PRN ×2 (11:56→19:58)
[2018-10-20] MEDS: SENNOSIDES 1 TABLET PO SCH (19:57)
[2018-10-20] MEDS: THIAMINE 100 MG TABLET PO SCH (22:14)
[2018-10-21] MEDS: ACETAMINOPHEN 1,000 MG/100 ML BOTTLE IV SCH ×2 (02:06→10:07)
[2018-10-21] MEDS: 0.9 % SODIUM CHLORIDE 10 ML SYRINGE IV SCH (04:44)
[2018-10-21 05:44] LABS: INR 3.5 (0.9-1.1); Prothrombin Time 34.7 sec (11.9-14.5)
--- NOTE | 2018-10-21 07:29 | Orthopedic Progress Note ---
Subjective Patient information: Note initiated : 10/21/18 at 7:26 am Service Date, if different from initiated Date: [] Patient: Irma Francis 88 y/o F admitted on 10/18/18 for Fall, Right Upper Leg Pain. Chief Complaint: [] Interval history: No acute events overnight. INR still supra therapeutic, increased HR this AM as well. Reported to be more combatitive- swatting/hitting staff Objective Vital signs: Vital Signs Temp Pulse Resp BP Pulse Ox 10/21/18 06:59 115 H 16 94 10/21/18 03:20 98.4 F 89 16 137/76 93 10/21/18 00:00 98 F 96 H 16 139/91 95 10/20/18 19:34 99.6 F H 70 18 111/64 92 10/20/18 17:59 98.2 F 10/20/18 16:00 98 F 92 H 14 123/72 95 10/20/18 12:00 97.8 F 67 14 136/76 96 Intake and Output 10/20/18 10/21/18 10/21/18 21:59 05:59 13:59 Intake Total 220 60 Output Total 450 800 Balance -230 -740 Intake: IV 100 Oral 120 60 Output: Urine Catheter Amount 450 800 Other: Meal Dinner Percent of Meal Consumed 25% Feeding Ability Total Assistance Urine Appearance Clear Clear Uretheral (Rodriguez) Clear Clear Urine Color Bright Yellow Bright Yellow Uretheral (Rodriguez) Bright Yellow Bright Yellow Urine Odor Normal Uretheral (Rodriguez) Normal Normal Stool Size Large Copious Stool Color Brown Brown Stool Consistency Soft Soft Loose Loose Loose # Bowel Movements 1 # of times incontinent of 1 Bowels Weight 137 lb Intake & Output: Intake & Output 10/20/18 10/21/18 10/21/18 21:59 05:59 13:59 Intake Total 220 60 Output Total 450 800 Balance -230 -740 Weight 137 lb Intake: IV 100 Oral 120 60 Output: Urine Catheter Amount 450 800 Other: Meal Dinner Percent of Meal Consumed 25% Feeding Ability Total Assistance Urine Appearance Clear Clear Uretheral (Rodriguez) Clear Clear Urine Color Bright Yellow Bright Yellow Uretheral (Rodriguez) Bright Yellow Bright Yellow Urine Odor Normal Uretheral (Rodriguez) Normal Normal Stool Size Large Copious Stool Color Brown Brown Stool Consistency Soft Soft Loose Loose Loose # Bowel Movements 1 # of times incontinent of 1 Bowels Dressing: Yes clean, Yes dry, Yes intact Weight bearing status: as tolerated Extremities exam IM: Yes Foot pink and warm - Labs CBC & BMP: 10/19/18 05:11 10/18/18 13:34 Labs: Orthopedic Labs 10/21/18 10/20/18 10/19/18 04:05 03:39 09:33 PT 34.7 H 39.6 H 24.8 H INR 3.5 H 4.2 H 2.3 H 10/18/18 13:34 PT 20.7 H INR 1.8 H 10/19/18 10/18/18 05:11 13:34 Hgb 10.9 L 11.7 L Hct 33.7 L 36.3 Assessment and Plan (1) Intertrochanteric fracture of right hip POD 3 s/p IM cephomedullary nail for Right intertrochanteric hip fracture --- Weight bearing to tolerance with walker ------PT/OT ------oral pain meds. ------d/c rodriguez -- SCDs, coumadin--- INR 3.5 down from 4.2, mobilization -- Dispo: Will benefit from SNF placement for a period of time prior to transitioning to home. Status: Acute
[2018-10-21] MEDS ORDERED: DILTIAZEM 30 MG TABLET PO SCH (09:20)
[2018-10-21] MEDS: DOCUSATE SODIUM 50 MG/5 ML ORAL.SOL PO SCH (09:31)
[2018-10-21] MEDS: QUEtiapine 25 MG TABLET PO SCH (09:31)
[2018-10-21 09:47] LABS: Basophils # (Auto) 0 K/mcL (0.0-0.3); Basophils % (Auto) 0.1 % (0.0-2.0); Eosinophils # (Auto) 0.1 K/mcL (0.0-0.7); Granulocytes % (Auto) 79.5 % (38.0-78.0); Hematocrit 32.4 % (36.0-48.0); Hemoglobin 10.3 g/dL (12.0-15.0); Lymphocytes # (Auto) 1.4 K/mcL (1.5-4.8); Mean Cell Volume 83.3 fL (80.0-100.0); Mean Corpuscular HGB Conc 31.7 g/dL (31.0-36.0); Mean Platelet Volume 11.5 fL (7.4-10.4); Monocytes # (Auto) 0.7 K/mcL (0.1-0.9); Monocytes % (Auto) 6.4 % (1.0-12.0); Platelet Count 259 K/mcL (140-440); RBC 3.89 M/mcL (4.00-5.20); Red Cell Distribution Width 17.7 % (11.5-14.5); WBC 11.1 K/mcL (4.5-11.0)
[2018-10-21 10:12] LABS: ALT/SGPT 17 U/l (0-40); AST/SGOT 31 U/l (0-37); Albumin 2.6 gm/dL (3.2-5.2); Albumin/Globulin Ratio 0.9 (1.0-2.3); Alkaline Phosphatase 68 U/L (39-117); Bilirubin,Direct < 0.2 mg/dL (0.0-0.3); Bilirubin,Total 0.7 mg/dL (0.0-1.0); Blood Urea Nitrogen 21 mg/dl (8-23); Calcium 8.4 mg/dl (8.6-10.4); Carbon Dioxide 24 mmol/L (22-30); Chloride 107 mmol/L (96-108); Glomerular Filtration Rate 66; Glucose 86 mg/dL (70-105); Lactate Dehydrogenase 171 U/L (94-250); Magnesium 1.9 mg/dL (1.6-2.5); Phosphorous 1.8 mg/dL (2.7-4.5); Sodium 142 mmol/L (133-145); Triglycerides 134 mg/dl (<150); Uric Acid 4.3 mg/dL (2.5-8.0)
--- NOTE | 2018-10-21 11:32 | Discharge Summary ---
Medical - DS: Prov Patient information: Note initiated : 10/21/18 at 11:29 am Service Date, if different from initiated Date: [] Patient: Irma Francis 88 y/o F admitted on 10/18/18 for Fall, Right Upper Leg Pain. Chief Complaint: [] Date of admission: 10/18/18 18:45 Discharge date: 10/21/18 Primary care physician: Helga Cordova MD Consults: 10/18/18 Consult to Physician [CONS] Stat Comment: Consulting Provider: Saritha Cortez Reason For Exam: Physician to Consult Consult to Physician [CONS] Stat Comment: Consulting Provider: Shaniqua Rhodes Reason For Exam: Physician to Consult Discharging clinician: Saritha Cortez Medical - DS: Meds - Discharge Medications Prescriptions: oxyCODONE HCL [Roxicodone] 5 mg PO Q4HP PRN #40 tab PRN Reason: Pain Level 3-6 Active and Home Medications: Home Medications QUEtiapine [Seroquel] 12.5 mg PO BID #30 tab 02/20/18 [Rx Confirmed 10/18/18 Last Taken Unknown] Furosemide [Lasix] 10 mg PO PRN PRN 04/22/18 [History Confirmed 10/18/18 Last Taken Unknown] Warfarin [Coumadin] 3 mg PO TU@1400 10/12/18 [History Confirmed 10/18/18 Last Taken Unknown] Warfarin [Coumadin] 4 mg PO SUMOWETHFRSA@1400 10/12/18 [History Confirmed 10/18/18 Last Taken Unknown] Diltiazem [Cardizem] 120 mg PO Q8H #20 tab 10/13/18 [Rx Confirmed 10/18/18 Last Taken Unknown] metroNIDAZOLE [Flagyl] 500 mg PO Q8 #15 tab 10/13/18 [Rx Confirmed 10/18/18 Last Taken Unknown] Acetaminophen [Tylenol] 650 mg PO Q6HP PRN tab 10/21/18 [Rx Last Taken Unknown] oxyCODONE HCL [Roxicodone] 5 mg PO Q4HP PRN #40 tab 10/21/18 [Rx Last Taken Unknown] Medical - DS: Hosp Hospital course: MMs. Francis is a 88 year old F with advanced dementia, lives at home with care givers, at baseline able to ambulate with self, comes to the ER today brought in by her care givers for fall and pain on the right hip. The patient fell down yesterday at her house, injured the right side, she had some pain in the shoulder, rib and hip region. The patient went to sleep, but when this AM she was unable to ambulate, and complained of pain, the care providers decided to bring her to the ER for further evaluation. patient was recently discharged from this facility with diagnosis of pna, She is pleasantly demented , however unable to provide any meaningful history. Most history from care givers, who reported the patient was in the hospital a few days ago. She was doing well post discharge. She was treated for pneumonia. Patient is on Coumadin for atrial fibrillation, and has had no complaints recently. Patient has undergone an echocardiogram last year which shows normal ejection fraction but severe aortic stenosis and moderate pulmonary hypertension. Patient is ambulatory at baseline however her MET score would be less than 1 - 2.' 10/19 Patient seen and examined, status post surgery, no obvious issues postop. Comfortable in bed, drowsy after pain medications. Is able to tolerate p.o. this morning Plan of care reviewed with her sons 10/20 Patient seen and examined, doing well postop, home medications were resumed I think the patient became bradycardic after the resumption of Cardizem blood pressure was also a bit soft this morning. That has been held now Patient is tolerating p.o. diet with the help of assistance mental status does not get back to baseline Labs are stable Anticipate discharge to long-term tomorrow 10/21 Patient seen and examined, doing well, tolerating p.o. diet well much more awake today Resumed Cardizem this morning at half home dose, 60 mg every 8 hours. Blood pressure and heart rate responded well. Patient stable for discharge outpatient follow-up with Ortho Discharge diagnosis: hip fracture - Time Spent with Patient Total time spent providing and/or coordinating discharge services: Greater than 30 minutes Medical - DS: Exam - Constitutional Vitals: Vital Signs Temp Pulse Resp BP Pulse Ox 10/21/18 07:55 97.2 F 120 H 16 179/101 95 10/21/18 06:59 115 H 16 94 10/21/18 03:20 98.4 F 89 16 137/76 93 10/21/18 00:00 98 F 96 H 16 139/91 95 10/20/18 19:34 99.6 F H 70 18 111/64 92 10/20/18 17:59 98.2 F 10/20/18 16:00 98 F 92 H 14 123/72 95 10/20/18 12:00 97.8 F 67 14 136/76 96 Intake and Output 10/20/18 10/21/18 10/21/18 21:59 05:59 13:59 Intake Total 220 160 100 Output Total 999 319 5835 Balance -230 640 -1050 Intake: IV 100 100 100 Oral 120 60 Output: Urine Catheter Amount 037 783 4690 Other: Meal Dinner Percent of Meal Consumed 25% Feeding Ability Total Assistance Urine Appearance Clear Clear Clear Uretheral (Mon[place]) Clear Clear Urine Color Bright Yellow Bright Yellow Bright Yellow Uretheral ([place]) Bright Yellow Bright Yellow Urine Odor Normal Normal Uretheral (Mon[place]iro) Normal Normal Stool Size Large Copious Stool Color Brown Brown Stool Consistency Soft Soft Loose Loose Loose # Bowel Movements 1 # of times incontinent of 1 Bowels Weight 137 lb Additional comments: Constitutional; Afebrile, cooperative, alert, not in distress. Respiratory system: Air Entry equal on both sides, No crackles or wheezing, no rhonchi. CVS- Rate rhythm regular, S1,S2 heard, no gallop, no rub. Abdomen- Soft nontender abdomen, no organomegaly, no tenderness, no guarding or rigidity, [employer]IGENCE- AOOx1, moving all extremities, no gross focal deficit noted. Medical - DS: Data Labs on day of discharge: Labs from last 24 hours 10/21/18 10/21/18 10/21/18 08:32 08:32 04:05 WBC 11.1 H RBC 3.89 L Hgb 10.3 L Hct 32.4 L MCV 83.3 MCH 26.4 MCHC 31.7 RDW 17.7 H Plt Count 259 MPV 11.5 H Gran % 79.5 H Lymph % (Auto) 13.0 L [place] % (Auto) 6.4 Eos % (Auto) 1.0 Baso % (Auto) 0.1 Gran # 8.8 H Lymph # (Auto) 1.4 L [place] # (Auto) 0.7 Eos # (Auto) 0.1 Baso # (Auto) 0 PT 34.7 H INR 3.5 H Sodium 142 Potassium 4.0 Chloride 107 Carbon Dioxide 24 Anion Gap 11.0 BUN 21 Creatinine 0.8 GFR Calculation 66 Glucose 86 Uric Acid 4.3 Calcium 8.4 L Phosphorus 1.8 L Magnesium 1.9 Total Bilirubin 0.7 Direct Bilirubin < 0.2 GGT 18 AST 31 ALT 17 Alkaline Phosphatase 68 Lactate Dehydrogenase 171 Total Protein 5.6 L Albumin 2.6 L Globulin 3.0 Albumin/Globulin Ratio 0.9 L Triglycerides 134 Medical - DS: A/P - Patient/Caregiver Discharge Instructions Activity: as per physical therapy Diet: Dysphagia Mech Alter (Honey thick liquid) Additional Instructions: Follow-up with orthopedics as scheduled Dose of Cardizem has been cut in half, patient used to take 120 mg every 8 hours, we have cut the dose to 60 mg every 8 hours. Should the patient have issues controlling the heart rate with this lower dose the dose can be escalated gradually by the long-term physician or the primary care provider Check INR in 3 days, and then adjust the dose of Coumadin as needed Follow-up with PCP in 1 week Go to the emergency room if chest pain shortness of breath or any other acute concerns Prescriptions: oxyCODONE HCL [Roxicodone] 5 mg PO Q4HP PRN #40 tab PRN Reason: Pain Level 3-6 Other Amb Orders: OT Discharge Order Location: None Selected Physical Therapy at Discharge - [facility] Location: None Selected - Follow up Plan Follow up with: Helga Cordova MD [Primary Care Provider] - Disposition: Xfer SNF Prognosis: Fair Rehab Potential: Fair I certify that the patient requires SNF services: Yes Overall status at discharge: patient is progressing back to baseline Medical - DS: Qual - VTE Deep Vein Thrombosis/Pulmonary Embolism Present on Admission: No
== END 2018-10-21 13:03 | DRG 482 ==
LOC: ED 11:52 → SUR 16:11 → MEDSUR 18:45
PROVIDERS: ADMIT Orthopaedic Surgery; ATTEND Internal Medicine
PROC: ORIFHIP (2018-10-18 16:37)